=== PATIENT | male | born 1940 | race Caucasian/White ===

== ENCOUNTER → 2016-05-19 | Outpatient (REF) | payer MEDICARE, MEDICAID ==
[~2016-05-19] MED LIST: /AMLO25TA OR; /INSUNPH SC; /MOM400 OR; /MOM400 PO; /PANT40TA PO; ARANESP IV; AZIT250T3 PO; BACT2CRE TOP; CALC1CAP31 PO; CALC25CA OR; CARV6.25 PO; CEFE1INJ IV; CINA30TA PO; ERYTOIN8 TOP; EUCECRE3 TOP; FEBU40TA PO; FLOM5CAP PO; FOLI1TAB2 PO; FOLI1TAB86 PO; FRUICHW PO; HYDR1TAB97 PO; INSUH10VL SC; INSULANT SC; KETO5OPD OS; LABE10TAB PO; LABE20TAB OR; LANTINJ4 SC; LASI20TA PO; LASI40TA PO; MOISTURIN CREAM EXT; MULTCAP PO; NO HISTORICAL MEDS; NORMODYNE OR; NOVOINJ3 SC; NYST100024 TOP; POTA10TA PO; PRAV10TA PO; PRED10TA PO; PRED1SUS OD; PROC20004 SC; PROT1TAB2 PO; REFRSOL OU; RENV2TAB PO; THIA100T PO; TOBRSUS41 OS; TYLE325T5 PO; VENO20IN IV; VITA100T2 PO; VITA1CAP25 PO; ZOFR20TA PO
[2016-05-19 10:13] LABS: BASO % 0.2 % (0.0-1.0); EOS # 0.2 K/mm3 (0.0-0.50); EOS % 5.4 % (0.0-3.0); LARGE UNSTAINED CELL # 0.1 K/mm3 (0.0-0.4); LARGE UNSTAINED CELL % 2.2 % (0.0-4.0); LYMPH # 0.9 K/mm3 (1.5-4.5); LYMPH % 24.6 % (24.0-44.0); MEAN CORPUSCULAR HEMOGLOBIN 31.1 pg (27.0-33.0); MEAN CORPUSCULAR HGB CONC 32.8 g/dl (32.0-36.5); MEAN CORPUSCULAR VOLUME 94.7 fl (80.0-96.0); MONO # 0.2 K/mm3 (0.0-0.8); MONO % 5.9 % (0.0-5.0); NEUTROPHILS # 2.1 K/mm3 (1.8-7.7); NEUTROPHILS % 61.6 % (36.0-66.0); PLATELET COUNT, AUTOMATED 110 k/mm3 (150-450); RED CELL DISTRIBUTION WIDTH 13.9 % (11.5-14.5); WHITE BLOOD COUNT 3.4 K/mm3 (4.0-10.0)
== END ==
PROVIDERS: ATTEND Internal Medicine Nephrology
DX: D64.9 Anemia, unspecified (principal)

== ENCOUNTER → 2016-06-16 | Outpatient (REF) | payer MEDICARE, MEDICAID ==
[~2016-06-16] MED LIST changes: +HYDR-3713 PO; -HYDR1TAB97 PO
[2016-06-16 12:53] LABS: BASO % 0.6 % (0.0-1.0); EOS # 0.1 K/mm3 (0.0-0.50); EOS % 3.8 % (0.0-3.0); LARGE UNSTAINED CELL # 0.1 K/mm3 (0.0-0.4); LYMPH # 0.7 K/mm3 (1.5-4.5); LYMPH % 23.3 % (24.0-44.0); MEAN CORPUSCULAR HEMOGLOBIN 30.1 pg (27.0-33.0); MEAN CORPUSCULAR HGB CONC 31.4 g/dl (32.0-36.5); MEAN CORPUSCULAR VOLUME 95.9 fl (80.0-96.0); MONO # 0.2 K/mm3 (0.0-0.8); NEUTROPHILS % 63.3 % (36.0-66.0); PLATELET COUNT, AUTOMATED 101 k/mm3 (150-450); RED CELL DISTRIBUTION WIDTH 13.9 % (11.5-14.5); WHITE BLOOD COUNT 3.2 K/mm3 (4.0-10.0)
== END ==
PROVIDERS: ATTEND Internal Medicine Nephrology
DX: D64.9 Anemia, unspecified (principal)

== ENCOUNTER → 2016-07-08 | Outpatient (REF) | payer MEDICARE, MEDICAID ==
[2016-07-08 09:59] LABS: BASO % 0.5 % (0.0-1.0); EOS # 0.1 K/mm3 (0.0-0.50); EOS % 3.5 % (0.0-3.0); LARGE UNSTAINED CELL # 0.1 K/mm3 (0.0-0.4); LARGE UNSTAINED CELL % 1.8 % (0.0-4.0); LYMPH # 1.1 K/mm3 (1.5-4.5); LYMPH % 27.1 % (24.0-44.0); MEAN CORPUSCULAR HEMOGLOBIN 30.6 pg (27.0-33.0); MEAN CORPUSCULAR HGB CONC 32.4 g/dl (32.0-36.5); MEAN CORPUSCULAR VOLUME 94.3 fl (80.0-96.0); MONO # 0.2 K/mm3 (0.0-0.8); MONO % 4.1 % (0.0-5.0); NEUTROPHILS # 2.5 K/mm3 (1.8-7.7); RED CELL DISTRIBUTION WIDTH 13.5 % (11.5-14.5); WHITE BLOOD COUNT 3.9 K/mm3 (4.0-10.0)
[2016-07-08 10:00] LABS: PLATELET COUNT, AUTOMATED 97 k/mm3 (150-450)
[2016-07-08 10:16] LABS: ALBUMIN 3.6 GM/DL (3.2-5.2); CALCIUM LEVEL 8.3 MG/DL (8.8-10.2); CREATININE FOR GFR 3.8 MG/DL (0.70-1.30); GLOMERULAR FILTRATION RATE 16.7 (>42); PHOSPHORUS LEVEL 4.1 MG/DL (2.5-4.9); POTASSIUM SERUM 4.5 MEQ/L (3.5-5.1)
== END ==
PROVIDERS: ATTEND Internal Medicine Nephrology
DX: N18.4 Chronic kidney disease, stage 4 (severe) (principal); D63.1 Anemia in chronic kidney disease; N25.81 Secondary hyperparathyroidism of renal origin

== ENCOUNTER 2016-07-23 09:46 | Emergency (ER) | payer MEDICARE, MEDICAID ==
[~2016-07-23] VITALS: Ht 170.2 cm; Wt 88.9 kg
[2016-07-23] MEDS ORDERED: PANTOPRAZOLE 40MG INJ (PROTONIX) (C9113) IV ONE (10:30)
[2016-07-23] MEDS ORDERED: SODIUM CHLORIDE 0.9% 1000 ML IV ONE (10:30)
[2016-07-23 10:44] LABS: ALBUMIN 3.8 GM/DL (3.2-5.2); ALBUMIN/GLOBULIN RATIO 1.06 (1.00-1.93); BILIRUBIN,DIRECT 0.2 MG/DL (0.0-0.2); BILIRUBIN,TOTAL 0.8 MG/DL (0.2-1.0); CALCIUM LEVEL 8.5 MG/DL (8.8-10.2); CREATININE FOR GFR 3.38 MG/DL (0.70-1.30); GLOMERULAR FILTRATION RATE 19.1 (>42); MEAN CORPUSCULAR HEMOGLOBIN 30.7 pg (27.0-33.0); MEAN CORPUSCULAR HGB CONC 32.2 g/dl (32.0-36.5); MEAN CORPUSCULAR VOLUME 95.2 fl (80.0-96.0); PLATELET COUNT, AUTOMATED 102 k/mm3 (150-450); POTASSIUM SERUM 4.5 MEQ/L (3.5-5.1); RED CELL DISTRIBUTION WIDTH 13.8 % (11.5-14.5); TOTAL PROTEIN 7.4 GM/DL (6.4-8.2); WHITE BLOOD COUNT 5.4 K/mm3 (4.0-10.0)
[2016-07-23 11:17] LABS: BANDS 3 % (< 11); EOSINOPHILS 2 % (0-5)
[2016-07-23 11:18] LABS: ANISOCYTOSIS 1+
--- NOTE | 2016-07-23 13:40 | REP ---
ABDOMEN SERIES: Three views. HISTORY: Abdominal pain, nausea and vomiting. Comparison study December 23, 2014. FINDINGS: Upright chest radiograph demonstrates an elevated right hemidiaphragm with some discoid atelectasis in the right lower lobe above the diaphragm. These findings are unchanged from December 23, 2014 study. The left lung is clear and well inflated. No free subdiaphragmatic air is seen. Supine and erect views of the abdomen demonstrate air fluid levels in air and fluid filled loops of small intestine in the central abdomen. These are mildly dilated. There is some air in the descending colon and stool is visible in the rectum. No colonic distension is appreciated. There is some vascular calcification. No surgical clips are seen. Psoas margins and flank stripes are intact. IMPRESSION: Air-fluid levels in dilated small bowel loops centrally. Question small bowel obstruction. Elevated right hemidiaphragm with discoid atelectasis and/or fibrosis in the right base. No free air. Signed by Vinod Miller MD 07/23/2016 05:37 P
--- NOTE | 2016-07-23 14:01 | REP ---
CT ABDOMEN AND PELVIS WITHOUT IV CONTRAST: 07/23/2016 CLINICAL HISTORY: Abdominal pain, vomiting. Evaluate for small bowel obstruction. TECHNIQUE: Noncontrast images with axial soft tissue windows along with coronal and sagittal reconstructions reviewed. Bone windows also reviewed for each slice level. FINDINGS: CT ABDOMEN: Lung bases show some bibasilar atelectatic change deep sulci, right slightly greater than left. No definite effusion, nodule or mass. There is elevation of the right diaphragm with more atelectatic changes adjacent to it than on the left. The liver is not enlarged. The spleen is not enlarged. There is no hepatic mass or biliary dilatation and I see no adjacent ascites. The gallbladder, however, has two groups of layering small stones or gravel, one in the dependent portion of the fundus, the other in the dependent portion of the lower gallbladder towards the neck. Pancreas shows some fatty atrophy but no mass ductal dilatation or calcification. There are some heavily calcified and tortuous/ectatic splenic artery. The adrenal glands show no mass. The kidneys are atrophic with there is no hydronephrosis. Atherosclerotic calcifications of the aorta without aneurysm. No hiatal hernia. Stomach adequately distended. Small bowel loops are not abnormally dilated. There are few filled with air and others with a few air-fluid levels that may reflect a very mild ileus or gastroenteritis but no obstruction. The lung window review of all CT slices shows no sign of perforation or abscess. No free air. Bone windows show lumbar spine with a few millimeters of anterolisthesis of L3 on four and vacuum phenomenon at that disc level. Mild disc bulge at that level with some mild central canal stenosis. No compression deformities are noted. The thoracic vertebral levels are intact. The visualized ribs are intact. CT PELVIS: Bladder is well distended. There is no bladder wall thickening, mass or stone. No renal stone, hydroureter or ureteral stone on either side. The SI joints show some minor sclerosis iliac margins but no destructive lesions of the sacrum, pelvic bones, hips or symphysis pubis. There are mild degenerative changes of both hips. The colon shows no evidence of appendicitis, colitis or diverticulitis in the abdomen proper. In the pelvis, there is diverticulosis of the distal left colon and sigmoid without diverticulitis. Prostate not enlarged, no inflammatory changes in the deep pelvis fat. No ventral or inguinal hernia nor pathologic inguinal adenopathy. IMPRESSION: 1. Some gas and air-fluid levels in small bowel loops in a pattern suggesting some gastroenteritis or mild ileus. No sign of obstruction, mass or free air. 2. Mild renal atrophy. 3. There are multiple small gallstones with mild calcifications seen in the dependent fundus and towards the neck of the gallbladder. No definite stone in the suzanna hepatis or pancreatic head region. 4. Solid organs otherwise unremarkable. Signed by Wiliam Sahu MD 07/23/2016 04:18 P
[2016-07-23] MEDS ORDERED: ZOFR4TAB3 PO (15:25)
[2016-07-23 16:11] VITALS: BP 135/72
== END 2016-07-23 16:23 | disposition home or self-care (01) ==
LOC: EDBD 09:46 → M ED 11:02
DX: K80.20 Calculus of gallbladder without cholecystitis without obstruction (principal); R11.2 Nausea with vomiting, unspecified; R19.7 Diarrhea, unspecified; N19 Unspecified kidney failure; E11.9 Type 2 diabetes mellitus without complications; I10 Essential (primary) hypertension; Z88.0 Allergy status to penicillin; Z88.1 Allergy status to other antibiotic agents; Z88.8 Allergy status to other drugs, medicaments and biological substances; Z79.4 Long term (current) use of insulin; Z79.899 Other long term (current) drug therapy
CPT/HCPCS: 36415; 74022; 74176; 80048; 80076; 83690; 85025; 96374; 99284; C9113

== ENCOUNTER → 2016-08-11 | Outpatient (REF) | payer MEDICARE, MEDICAID ==
[~2016-08-11] MED LIST changes: +ZOFR4TAB3 PO
[2016-08-11 10:22] LABS: BASO % 0.6 % (0.0-1.0); EOS # 0.2 K/mm3 (0.0-0.50); EOS % 3.6 % (0.0-3.0); LARGE UNSTAINED CELL # 0.1 K/mm3 (0.0-0.4); LYMPH % 21.4 % (24.0-44.0); MEAN CORPUSCULAR HEMOGLOBIN 30.7 pg (27.0-33.0); MEAN CORPUSCULAR HGB CONC 32.1 g/dl (32.0-36.5); MEAN CORPUSCULAR VOLUME 95.5 fl (80.0-96.0); MONO # 0.2 K/mm3 (0.0-0.8); MONO % 5.3 % (0.0-5.0); NEUTROPHILS # 2.8 K/mm3 (1.8-7.7); NEUTROPHILS % 67.1 % (36.0-66.0); PLATELET COUNT, AUTOMATED 141 k/mm3 (150-450); RED CELL DISTRIBUTION WIDTH 14.2 % (11.5-14.5); WHITE BLOOD COUNT 4.1 K/mm3 (4.0-10.0)
== END ==
PROVIDERS: ATTEND Internal Medicine Nephrology
DX: N18.9 Chronic kidney disease, unspecified (principal); D63.1 Anemia in chronic kidney disease

== ENCOUNTER → 2016-09-23 | Outpatient (REF) | payer MEDICARE, MEDICAID ==
[2016-09-23 11:01] LABS: BASO % 0.7 % (0.0-1.0); EOS # 0.2 K/mm3 (0.0-0.50); LARGE UNSTAINED CELL % 0.8 % (0.0-4.0); MEAN CORPUSCULAR HEMOGLOBIN 31.3 pg (27.0-33.0); MEAN CORPUSCULAR HGB CONC 32.2 g/dl (32.0-36.5); MEAN CORPUSCULAR VOLUME 97.4 fl (80.0-96.0); MONO # 0.3 K/mm3 (0.0-0.8); MONO % 5.7 % (0.0-5.0); NEUTROPHILS # 2.9 K/mm3 (1.8-7.7); NEUTROPHILS % 65.8 % (36.0-66.0); PLATELET COUNT, AUTOMATED 120 k/mm3 (150-450); RED CELL DISTRIBUTION WIDTH 13.4 % (11.5-14.5); WHITE BLOOD COUNT 4.4 K/mm3 (4.0-10.0)
[2016-09-23 11:30] LABS: ALBUMIN 3.6 GM/DL (3.2-5.2); CALCIUM LEVEL 8.7 MG/DL (8.8-10.2); CREATININE FOR GFR 3.66 MG/DL (0.70-1.30); GLOMERULAR FILTRATION RATE 17.4 (>42); POTASSIUM SERUM 3.9 MEQ/L (3.5-5.1)
== END ==
PROVIDERS: ATTEND Internal Medicine Nephrology
DX: N18.4 Chronic kidney disease, stage 4 (severe) (principal); D63.1 Anemia in chronic kidney disease; N25.81 Secondary hyperparathyroidism of renal origin

== ENCOUNTER → 2016-12-22 | Outpatient (REF) | payer MEDICARE, MEDICAID ==
[~2016-12-22] MED LIST changes: +AZIT-12 PO; -AZIT250T3 PO; -FOLI1TAB2 PO; +FOLI1TAB4 PO; -NYST100024 TOP; +NYST1POW9 TOP; -PRAV10TA PO; +PRAV10TA4 PO; -THIA100T PO; +THIA100T6 PO
[2016-12-22 12:40] LABS: BASO % 0.5 % (0.0-1.0); EOS # 0.1 K/mm3 (0.0-0.50); EOS % 3.8 % (0.0-3.0); LARGE UNSTAINED CELL # 0.1 K/mm3 (0.0-0.4); LARGE UNSTAINED CELL % 1.7 % (0.0-4.0); LYMPH # 0.8 K/mm3 (1.5-4.5); LYMPH % 21.5 % (24.0-44.0); MEAN CORPUSCULAR HEMOGLOBIN 32.2 pg (27.0-33.0); MEAN CORPUSCULAR HGB CONC 32.8 g/dl (32.0-36.5); MEAN CORPUSCULAR VOLUME 98.1 fl (80.0-96.0); MONO # 0.2 K/mm3 (0.0-0.8); MONO % 5.5 % (0.0-5.0); NEUTROPHILS # 2.5 K/mm3 (1.8-7.7); NEUTROPHILS % 66.9 % (36.0-66.0); PLATELET COUNT, AUTOMATED 100 k/mm3 (150-450); RED CELL DISTRIBUTION WIDTH 13.4 % (11.5-14.5); WHITE BLOOD COUNT 3.7 K/mm3 (4.0-10.0)
[2016-12-22 13:55] LABS: ALBUMIN 3.6 GM/DL (3.2-5.2); CALCIUM LEVEL 8.1 MG/DL (8.8-10.2); CREATININE FOR GFR 3.74 MG/DL (0.70-1.30); PHOSPHORUS LEVEL 3.7 MG/DL (2.5-4.9); POTASSIUM SERUM 3.6 MEQ/L (3.5-5.1)
== END ==
PROVIDERS: ATTEND Internal Medicine Nephrology
DX: N18.4 Chronic kidney disease, stage 4 (severe) (principal); D63.1 Anemia in chronic kidney disease; N25.81 Secondary hyperparathyroidism of renal origin; E11.22 Type 2 diabetes mellitus with diabetic chronic kidney disease

== ENCOUNTER 2017-01-19 13:17 | Emergency (ER) | payer MEDICARE, MEDICAID ==
[~2017-01-19] VITALS: Ht 170.2 cm; Wt 86.4 kg
[2017-01-19 13:27] VITALS: BP 139/65
== END 2017-01-19 15:04 | disposition home or self-care (01) ==
LOC: M ED 13:17 → EDBD 13:17 → M ED 15:04
DX: H35.63 Retinal hemorrhage, bilateral (principal); E11.9 Type 2 diabetes mellitus without complications; I10 Essential (primary) hypertension; F17.200 Nicotine dependence, unspecified, uncomplicated; Z79.4 Long term (current) use of insulin; Z79.899 Other long term (current) drug therapy; Z88.0 Allergy status to penicillin; Z88.8 Allergy status to other drugs, medicaments and biological substances; Z88.1 Allergy status to other antibiotic agents

== ENCOUNTER → 2017-03-16 | Outpatient (REF) | payer MEDICARE, MEDICAID ==
[2017-03-16 10:17] LABS: BASO % 0.5 % (0.0-1.0); EOS # 0.2 10^3/uL (0.0-0.50); EOS % 3.8 % (0.0-3.0); IMMATURE GRANULOCYTE % 0.7 % (0-0); LYMPH # 0.9 10^3/uL (1.5-4.5); LYMPH % 21.9 % (24.0-44.0); MEAN CORPUSCULAR HEMOGLOBIN 31.2 pg (27.0-33.0); MEAN CORPUSCULAR HGB CONC 32.2 g/dl (32.0-36.5); MEAN CORPUSCULAR VOLUME 96.9 fl (80.0-96.0); MONO # 0.3 10^3/uL (0.0-0.8); MONO % 6.7 % (0.0-5.0); NEUTROPHILS # 2.8 10^3/uL (1.8-7.7); NEUTROPHILS % 66.4 % (36.0-66.0); PLATELET COUNT, AUTOMATED 108 10^3/uL (150-450); RED CELL DISTRIBUTION WIDTH 13.2 % (11.5-14.5); WHITE BLOOD COUNT 4.2 10^3/uL (4.0-10.0)
[2017-03-16 10:36] LABS: ALBUMIN 3.6 GM/DL (3.2-5.2); CREATININE FOR GFR 3.92 MG/DL (0.70-1.30); PHOSPHORUS LEVEL 3.9 MG/DL (2.5-4.9); POTASSIUM SERUM 4.1 MEQ/L (3.5-5.1)
== END ==
PROVIDERS: ATTEND Internal Medicine Nephrology
DX: N18.4 Chronic kidney disease, stage 4 (severe) (principal); D63.1 Anemia in chronic kidney disease; E11.22 Type 2 diabetes mellitus with diabetic chronic kidney disease; N25.81 Secondary hyperparathyroidism of renal origin

== ENCOUNTER → 2017-04-21 | Outpatient (REF) | payer MEDICARE, MEDICAID | LOC: M LAB REF 16:54 | PROVIDERS: ATTEND Podiatrist | DX: L03.116 Cellulitis of left lower limb (principal) ==

== ENCOUNTER → 2017-04-28 | Outpatient (REF) | payer MEDICARE, MEDICAID | LOC: M LAB REF 18:14 | PROVIDERS: ATTEND Nurse Practitioner Adult Health | DX: L30.9 Dermatitis, unspecified (principal); M14.679 Charcot's joint, unspecified ankle and foot ==

== ENCOUNTER → 2017-06-08 | Outpatient (REF) | payer MEDICARE, MEDICAID ==
[2017-06-08 11:38] LABS: HEMATOCRIT 33.3 % (42.0-52.0); HEMOGLOBIN 10.7 g/dl (14.0-18.0); MEAN CORPUSCULAR HEMOGLOBIN 30.7 pg (27.0-33.0); MEAN CORPUSCULAR HGB CONC 32.1 g/dl (32.0-36.5); MEAN CORPUSCULAR VOLUME 95.4 fl (80.0-96.0); PLATELET COUNT, AUTOMATED 120 10^3/uL (150-450); RED BLOOD COUNT 3.49 10^6/uL (4.30-6.10); RED CELL DISTRIBUTION WIDTH 12.9 % (11.5-14.5); WHITE BLOOD COUNT 3.7 10^3/uL (4.0-10.0)
[2017-06-08 11:54] LABS: ESTIMATED AVERAGE GLUCOSE 126 MG/DL (60-110)
[2017-06-08 12:01] LABS: ERYTHROCYTE SEDIMENTATION RATE 35 mm/hr (0-20)
[2017-06-08 12:22] LABS: ANION GAP 11 MEQ/L (8-16); BLOOD UREA NITROGEN 72 MG/DL (7-18); C REACTIVE PROTEIN QUANTITATIV 0.84 MG/DL (0.00-0.30); CALCIUM LEVEL 8.8 MG/DL (8.8-10.2); CARBON DIOXIDE LEVEL 26 MEQ/L (21-32); CHLORIDE LEVEL 102 MEQ/L (98-107); CREATININE FOR GFR 3.81 MG/DL (0.70-1.30); GLOMERULAR FILTRATION RATE 16.6 (>42); GLUCOSE, FASTING 105 MG/DL (70-100); POTASSIUM SERUM 3.9 MEQ/L (3.5-5.1); SODIUM LEVEL 139 MEQ/L (136-145)
== END ==
DX: Z00.00 Encounter for general adult medical examination without abnormal findings (principal); R73.01 Impaired fasting glucose
CPT/HCPCS: 83036

== ENCOUNTER → 2017-06-22 | Outpatient (REF) | payer MEDICARE, MEDICAID ==
[2017-06-22 10:13] LABS: BASO % 0.7 % (0.0-1.0); EOS # 0.1 10^3/uL (0.0-0.50); EOS % 2.8 % (0.0-3.0); HEMATOCRIT 34.8 % (42.0-52.0); HEMOGLOBIN 11.3 g/dl (14.0-18.0); IMMATURE GRANULOCYTE % 0.5 % (0-3.0); LYMPH % 22.9 % (24.0-44.0); MEAN CORPUSCULAR HEMOGLOBIN 30.8 pg (27.0-33.0); MEAN CORPUSCULAR HGB CONC 32.5 g/dl (32.0-36.5); MEAN CORPUSCULAR VOLUME 94.8 fl (80.0-96.0); MONO # 0.3 10^3/uL (0.0-0.8); MONO % 7.9 % (0.0-5.0); NEUTROPHILS # 2.8 10^3/uL (1.8-7.7); NEUTROPHILS % 65.2 % (36.0-66.0); PLATELET COUNT, AUTOMATED 122 10^3/uL (150-450); RED BLOOD COUNT 3.67 10^6/uL (4.30-6.10); WHITE BLOOD COUNT 4.3 10^3/uL (4.0-10.0)
[2017-06-22 10:35] LABS: ALBUMIN 3.8 GM/DL (3.2-5.2); ANION GAP 8 MEQ/L (8-16); BLOOD UREA NITROGEN 88 MG/DL (7-18); CALCIUM LEVEL 9.2 MG/DL (8.8-10.2); CARBON DIOXIDE LEVEL 29 MEQ/L (21-32); CHLORIDE LEVEL 104 MEQ/L (98-107); GLOMERULAR FILTRATION RATE 16.6 (>42); GLUCOSE, FASTING 81 MG/DL (70-100); PHOSPHORUS LEVEL 4.2 MG/DL (2.5-4.9); SODIUM LEVEL 141 MEQ/L (136-145)
[2017-06-22 10:43] LABS: PTH INTACT 59.7 PG/ML (18.5-88.0)
== END ==
DX: N18.5 Chronic kidney disease, stage 5 (principal); D63.1 Anemia in chronic kidney disease; N25.81 Secondary hyperparathyroidism of renal origin
CPT/HCPCS: 80069

== ENCOUNTER → 2017-07-23 | Outpatient (CLI) | payer MEDICARE, MEDICAID | LOC: M RAD 11:15 | DX: M86.172 Other acute osteomyelitis, left ankle and foot (principal); I70.213 Atherosclerosis of native arteries of extremities with intermittent claudication, bilateral legs; S91.302A Unspecified open wound, left foot, initial encounter; X58.XXXA Exposure to other specified factors, initial encounter; Y92.89 Other specified places as the place of occurrence of the external cause | CPT/HCPCS: 93923 ==

== ENCOUNTER → 2017-08-31 | Outpatient (REF) | payer MEDICARE, MEDICAID ==
[2017-08-31 10:42] LABS: BASO % 0.9 % (0.0-1.0); EOS # 0.2 10^3/uL (0.0-0.50); EOS % 5.6 % (0.0-3.0); HEMATOCRIT 33.8 % (42.0-52.0); HEMOGLOBIN 10.9 g/dl (13.5-17.5); IMMATURE GRANULOCYTE % 0.6 % (0-3.0); MEAN CORPUSCULAR HEMOGLOBIN 29.9 pg (27.0-33.0); MEAN CORPUSCULAR HGB CONC 32.2 g/dl (32.0-36.5); MEAN CORPUSCULAR VOLUME 92.9 fl (80.0-96.0); MONO # 0.4 10^3/uL (0.0-0.8); NEUTROPHILS # 1.8 10^3/uL (1.8-7.7); NEUTROPHILS % 51.9 % (36.0-66.0); PLATELET COUNT, AUTOMATED 110 10^3/uL (150-450); RED BLOOD COUNT 3.64 10^6/uL (4.30-6.10); RED CELL DISTRIBUTION WIDTH 13.3 % (11.5-14.5); WHITE BLOOD COUNT 3.4 10^3/uL (4.0-10.0)
[2017-08-31 11:20] LABS: ANION GAP 9 MEQ/L (8-16); BLOOD UREA NITROGEN 65 MG/DL (7-18); CALCIUM LEVEL 10.1 MG/DL (8.8-10.2); CARBON DIOXIDE LEVEL 26 MEQ/L (21-32); CHLORIDE LEVEL 106 MEQ/L (98-107); CREATININE FOR GFR 3.78 MG/DL (0.70-1.30); GLOMERULAR FILTRATION RATE 16.7 (>42); GLUCOSE, FASTING 122 MG/DL (70-100); POTASSIUM SERUM 3.8 MEQ/L (3.5-5.1); SODIUM LEVEL 141 MEQ/L (136-145)
== END ==
DX: M79.662 Pain in left lower leg (principal)
CPT/HCPCS: 80048

== ENCOUNTER → 2017-09-21 | Outpatient (REF) | payer MEDICARE, MEDICAID ==
[2017-09-21 09:35] LABS: BASO % 0.7 % (0.0-1.0); EOS # 0.2 10^3/uL (0.0-0.50); EOS % 4.7 % (0.0-3.0); HEMATOCRIT 34.5 % (42.0-52.0); HEMOGLOBIN 11.2 g/dl (13.5-17.5); IMMATURE GRANULOCYTE % 1.2 % (0-3.0); LYMPH # 1.3 10^3/uL (1.5-4.5); LYMPH % 30.7 % (24.0-44.0); MEAN CORPUSCULAR HEMOGLOBIN 30.7 pg (27.0-33.0); MEAN CORPUSCULAR HGB CONC 32.5 g/dl (32.0-36.5); MEAN CORPUSCULAR VOLUME 94.5 fl (80.0-96.0); MONO # 0.4 10^3/uL (0.0-0.8); MONO % 9.8 % (0.0-5.0); NEUTROPHILS # 2.2 10^3/uL (1.8-7.7); NEUTROPHILS % 52.9 % (36.0-66.0); PLATELET COUNT, AUTOMATED 124 10^3/uL (150-450); RED BLOOD COUNT 3.65 10^6/uL (4.30-6.10); RED CELL DISTRIBUTION WIDTH 13.4 % (11.5-14.5); WHITE BLOOD COUNT 4.1 10^3/uL (4.0-10.0)
[2017-09-21 10:15] LABS: ALBUMIN 3.6 GM/DL (3.2-5.2); ANION GAP 10 MEQ/L (8-16); BLOOD UREA NITROGEN 78 MG/DL (7-18); CALCIUM LEVEL 9.6 MG/DL (8.8-10.2); CARBON DIOXIDE LEVEL 25 MEQ/L (21-32); CHLORIDE LEVEL 109 MEQ/L (98-107); CREATININE FOR GFR 3.88 MG/DL (0.70-1.30); GLOMERULAR FILTRATION RATE 16.2 (>42); GLUCOSE, FASTING 73 MG/DL (70-100); PHOSPHORUS LEVEL 3.8 MG/DL (2.5-4.9); POTASSIUM SERUM 3.8 MEQ/L (3.5-5.1); SODIUM LEVEL 144 MEQ/L (136-145)
[2017-09-21 11:06] LABS: ESTIMATED AVERAGE GLUCOSE 120 MG/DL (60-110); HEMOGLOBIN A1c 5.8 %
== END ==
DX: N18.4 Chronic kidney disease, stage 4 (severe) (principal); D63.1 Anemia in chronic kidney disease; E11.22 Type 2 diabetes mellitus with diabetic chronic kidney disease; N25.81 Secondary hyperparathyroidism of renal origin
CPT/HCPCS: 80069

== ENCOUNTER → 2017-09-28 | Outpatient (CLI) | payer MEDICARE, MEDICAID ==
[~2017-09-28] MED LIST changes: -/AMLO25TA OR; -/INSUNPH SC; -/MOM400 OR; -/MOM400 PO; -/PANT40TA PO; -ARANESP IV; -AZIT-12 PO; -BACT2CRE TOP; -CALC1CAP31 PO; -CALC25CA OR; -CARV6.25 PO; -CEFE1INJ IV; -CINA30TA PO; -ERYTOIN8 TOP; -EUCECRE3 TOP; -FEBU40TA PO; -FLOM5CAP PO; -FOLI1TAB4 PO; -FOLI1TAB86 PO; -FRUICHW PO; +HEPARIN 1,000 UNITS/ML 10ML VIAL (FOR RADIOLOGY& DIALYSIS ONLY) As Ordered; -HYDR-3713 PO; -INSUH10VL SC; -INSULANT SC; +ISOVUE-300 61% 50ML VIAL (Q9967) As Ordered; -KETO5OPD OS; -LABE10TAB PO; -LABE20TAB OR; -LANTINJ4 SC; -LASI20TA PO; -LASI40TA PO; +MIDAZOLAM INJ 2 MG/2 ML VIAL (J2250) As Ordered; -MOISTURIN CREAM EXT; -MULTCAP PO; -NO HISTORICAL MEDS; -NORMODYNE OR; -NOVOINJ3 SC; -NYST1POW9 TOP; -POTA10TA PO; -PRAV10TA4 PO; -PRED10TA PO; -PRED1SUS OD; -PROC20004 SC; -PROT1TAB2 PO; -REFRSOL OU; -RENV2TAB PO; -THIA100T6 PO; -TOBRSUS41 OS; -TYLE325T5 PO; -VENO20IN IV; -VITA100T2 PO; -VITA1CAP25 PO; -ZOFR20TA PO; -ZOFR4TAB3 PO; +fentaNYL 100 MCG/2 ML INJECTION (J3010) As Ordered
== END | disposition home or self-care (01) ==
LOC: M IRPRO 07:36
DX: I70.245 Atherosclerosis of native arteries of left leg with ulceration of other part of foot (principal); L97.529 Non-pressure chronic ulcer of other part of left foot with unspecified severity; M14.672 Charcot's joint, left ankle and foot; E11.22 Type 2 diabetes mellitus with diabetic chronic kidney disease; N18.9 Chronic kidney disease, unspecified
CPT/HCPCS: 36247

== ENCOUNTER 2017-10-01 17:13 | Emergency (ER) | payer MEDICARE, MEDICAID ==
[2017-10-01 18:34] LABS: BASO % 0.4 % (0.0-1.0); EOS # 0.1 10^3/uL (0.0-0.50); EOS % 2.4 % (0.0-3.0); HEMATOCRIT 31.3 % (42.0-52.0); HEMOGLOBIN 10.2 g/dl (13.5-17.5); IMMATURE GRANULOCYTE % 0.6 % (0-3.0); LYMPH # 0.8 10^3/uL (1.5-4.5); LYMPH % 16.5 % (24.0-44.0); MEAN CORPUSCULAR HGB CONC 32.6 g/dl (32.0-36.5); MEAN CORPUSCULAR VOLUME 95.1 fl (80.0-96.0); MONO # 0.5 10^3/uL (0.0-0.8); MONO % 9.5 % (0.0-5.0); NEUTROPHILS # 3.6 10^3/uL (1.8-7.7); NEUTROPHILS % 70.6 % (36.0-66.0); RED BLOOD COUNT 3.29 10^6/uL (4.30-6.10); RED CELL DISTRIBUTION WIDTH 13.6 % (11.5-14.5)
[2017-10-01 18:59] LABS: ANION GAP 9 MEQ/L (8-16); BLOOD UREA NITROGEN 69 MG/DL (7-18); C REACTIVE PROTEIN QUANTITATIV 7.93 MG/DL (0.00-0.30); CALCIUM LEVEL 8.9 MG/DL (8.8-10.2); CARBON DIOXIDE LEVEL 25 MEQ/L (21-32); CHLORIDE LEVEL 107 MEQ/L (98-107); CREATININE FOR GFR 3.58 MG/DL (0.70-1.30); GLOMERULAR FILTRATION RATE 17.8 (>42); GLUCOSE, FASTING 133 MG/DL (70-100); SODIUM LEVEL 141 MEQ/L (136-145)
[2017-10-01 19:16] LABS: PLATELET COUNT, AUTOMATED 84 10^3/uL (150-450)
[2017-10-01 19:17] LABS: IMMATURE PLATELET FRACTION % 2.3 % (0.0-10.9)
[2017-10-01 19:20] LABS: ERYTHROCYTE SEDIMENTATION RATE 47 mm/hr (0-20)
[2017-10-01] MEDS: CEPHALEXIN 500 MG CAP PO (19:30)
== END 2017-10-01 20:21 | disposition home or self-care (01) ==
LOC: M ED 17:13
DX: L03.116 Cellulitis of left lower limb (principal); E11.9 Type 2 diabetes mellitus without complications
CPT/HCPCS: 73610

== ENCOUNTER → 2017-11-02 | Outpatient (REF) | payer MEDICARE, MEDICAID ==
[2017-11-02 11:57] LABS: BASO % 0.3 % (0.0-1.0); EOS # 0.2 10^3/uL (0.0-0.50); EOS % 4.6 % (0.0-3.0); HEMATOCRIT 32.5 % (42.0-52.0); HEMOGLOBIN 10.9 g/dl (13.5-17.5); IMMATURE GRANULOCYTE % 0.5 % (0-3.0); LYMPH % 26.4 % (24.0-44.0); MEAN CORPUSCULAR HEMOGLOBIN 31.6 pg (27.0-33.0); MEAN CORPUSCULAR HGB CONC 33.5 g/dl (32.0-36.5); MEAN CORPUSCULAR VOLUME 94.2 fl (80.0-96.0); MONO # 0.3 10^3/uL (0.0-0.8); MONO % 8.9 % (0.0-5.0); NEUTROPHILS # 2.2 10^3/uL (1.8-7.7); NEUTROPHILS % 59.3 % (36.0-66.0); RED BLOOD COUNT 3.45 10^6/uL (4.30-6.10); RED CELL DISTRIBUTION WIDTH 13.6 % (11.5-14.5); WHITE BLOOD COUNT 3.7 10^3/uL (4.0-10.0)
[2017-11-02 12:08] LABS: IMMATURE PLATELET FRACTION % 2.4 % (0.0-10.9); PLATELET COUNT, AUTOMATED 97 10^3/uL (150-450)
[2017-11-02 12:38] LABS: ALBUMIN 3.8 GM/DL (3.2-5.2); ANION GAP 11 MEQ/L (8-16); BLOOD UREA NITROGEN 84 MG/DL (7-18); CARBON DIOXIDE LEVEL 24 MEQ/L (21-32); CHLORIDE LEVEL 108 MEQ/L (98-107); CREATININE FOR GFR 4.15 MG/DL (0.70-1.30); GLUCOSE, FASTING 67 MG/DL (70-100); PHOSPHORUS LEVEL 4.4 MG/DL (2.5-4.9); POTASSIUM SERUM 4.2 MEQ/L (3.5-5.1); SODIUM LEVEL 143 MEQ/L (136-145)
[2017-11-02 13:10] LABS: PTH INTACT 44.9 PG/ML (18.5-88.0)
== END ==
DX: N18.4 Chronic kidney disease, stage 4 (severe) (principal); D63.1 Anemia in chronic kidney disease
CPT/HCPCS: 80069

== ENCOUNTER → 2017-11-16 | Outpatient (REF) | payer MEDICARE, MEDICAID ==
[2017-11-16 10:53] LABS: PTH INTACT 40.4 PG/ML (18.5-88.0)
== END ==
DX: N18.6 End stage renal disease (principal)
CPT/HCPCS: 83970

== ENCOUNTER → 2017-11-23 | Outpatient (REF) | payer MEDICARE, MEDICAID ==
[2017-11-23 09:28] LABS: HEMATOCRIT 32.2 % (42.0-52.0); HEMOGLOBIN 10.8 g/dl (13.5-17.5); MEAN CORPUSCULAR HEMOGLOBIN 31.7 pg (27.0-33.0); MEAN CORPUSCULAR HGB CONC 33.5 g/dl (32.0-36.5); MEAN CORPUSCULAR VOLUME 94.4 fl (80.0-96.0); PLATELET COUNT, AUTOMATED 105 10^3/uL (150-450); RED BLOOD COUNT 3.41 10^6/uL (4.30-6.10); RED CELL DISTRIBUTION WIDTH 13.4 % (11.5-14.5); WHITE BLOOD COUNT 4.1 10^3/uL (4.0-10.0)
[2017-11-23 09:40] LABS: PROTHROMBIN TIME 14.3 SECONDS (12.1-14.4)
[2017-11-23 09:41] LABS: PARTIAL THROMBOPLASTIN TIME 31.4 SECONDS (25.4-37.6)
[2017-11-23 09:57] LABS: ALBUMIN 3.5 GM/DL (3.2-5.2); ALBUMIN/GLOBULIN RATIO 0.88 (1.00-1.93); ALKALINE PHOSPHATASE 56 U/L (45-117); ALT/SGPT 34 U/L (12-78); ANION GAP 10 MEQ/L (8-16); AST/SGOT 24 U/L (7-37); BILIRUBIN,TOTAL 0.4 MG/DL (0.2-1.0); BLOOD UREA NITROGEN 96 MG/DL (7-18); CARBON DIOXIDE LEVEL 25 MEQ/L (21-32); CHLORIDE LEVEL 107 MEQ/L (98-107); GLOMERULAR FILTRATION RATE 14.4 (>42); GLUCOSE, FASTING 54 MG/DL (70-100); POTASSIUM SERUM 4.3 MEQ/L (3.5-5.1); SODIUM LEVEL 142 MEQ/L (136-145); TOTAL PROTEIN 7.5 GM/DL (6.4-8.2)
[2017-11-23 10:05] LABS: ESTIMATED AVERAGE GLUCOSE 131 MG/DL (60-110); HEMOGLOBIN A1c 6.2 %
== END ==
DX: E11.9 Type 2 diabetes mellitus without complications (principal); Z79.01 Long term (current) use of anticoagulants
CPT/HCPCS: 80053

== ENCOUNTER → 2017-12-03 | Outpatient (REF) | payer MEDICARE, MEDICAID ==
[2017-12-03 09:48] LABS: HEMATOCRIT 30.4 % (42.0-52.0); MEAN CORPUSCULAR HEMOGLOBIN 31.6 pg (27.0-33.0); MEAN CORPUSCULAR HGB CONC 32.9 g/dl (32.0-36.5); MEAN CORPUSCULAR VOLUME 96.2 fl (80.0-96.0); PLATELET COUNT, AUTOMATED 102 10^3/uL (150-450); RED BLOOD COUNT 3.16 10^6/uL (4.30-6.10); RED CELL DISTRIBUTION WIDTH 13.8 % (11.5-14.5); WHITE BLOOD COUNT 4.1 10^3/uL (4.0-10.0)
[2017-12-03 09:58] LABS: ESTIMATED AVERAGE GLUCOSE 123 MG/DL (60-110); HEMOGLOBIN A1c 5.9 %
[2017-12-03 10:05] LABS: INR 1.13; PROTHROMBIN TIME 14.6 SECONDS (12.1-14.4)
[2017-12-03 10:09] LABS: ALBUMIN 3.3 GM/DL (3.2-5.2); ALBUMIN/GLOBULIN RATIO 1.06 (1.00-1.93); ALKALINE PHOSPHATASE 52 U/L (45-117); ALT/SGPT 31 U/L (12-78); ANION GAP 7 MEQ/L (8-16); AST/SGOT 21 U/L (7-37); BILIRUBIN,TOTAL 0.3 MG/DL (0.2-1.0); BLOOD UREA NITROGEN 95 MG/DL (7-18); CALCIUM LEVEL 8.6 MG/DL (8.8-10.2); CARBON DIOXIDE LEVEL 29 MEQ/L (21-32); CHLORIDE LEVEL 109 MEQ/L (98-107); CREATININE FOR GFR 4.41 MG/DL (0.70-1.30); GLUCOSE, FASTING 58 MG/DL (70-100); POTASSIUM SERUM 4.9 MEQ/L (3.5-5.1); SODIUM LEVEL 145 MEQ/L (136-145); TOTAL PROTEIN 6.4 GM/DL (6.4-8.2)
== END ==
DX: Z01.818 Encounter for other preprocedural examination (principal); Z79.899 Other long term (current) drug therapy; E11.9 Type 2 diabetes mellitus without complications
CPT/HCPCS: 80053

== ENCOUNTER → 2017-12-10 | Outpatient (REF) | payer MEDICARE, MEDICAID ==
[2017-12-10 10:04] LABS: HEMOGLOBIN 10.5 g/dl (13.5-17.5); MEAN CORPUSCULAR HEMOGLOBIN 31.1 pg (27.0-33.0); MEAN CORPUSCULAR HGB CONC 32.8 g/dl (32.0-36.5); MEAN CORPUSCULAR VOLUME 94.7 fl (80.0-96.0); RED BLOOD COUNT 3.38 10^6/uL (4.30-6.10); RED CELL DISTRIBUTION WIDTH 13.4 % (11.5-14.5); WHITE BLOOD COUNT 4.1 10^3/uL (4.0-10.0)
[2017-12-10 10:06] LABS: IMMATURE PLATELET FRACTION % 2.7 % (0.0-10.9); PLATELET COUNT, AUTOMATED 91 10^3/uL (150-450)
== END ==
DX: N18.4 Chronic kidney disease, stage 4 (severe) (principal); D63.1 Anemia in chronic kidney disease; E11.9 Type 2 diabetes mellitus without complications
CPT/HCPCS: 85049

== ENCOUNTER 2017-12-30 08:31 | Inpatient (IN) | payer MEDICARE, MEDICAID ==
[~2017-12-30 08:31] MED LIST changes: +D5W/0.2% SODIUM CHLORIDE 1,000 ML IV; -HEPARIN 1,000 UNITS/ML 10ML VIAL (FOR RADIOLOGY& DIALYSIS ONLY) As Ordered; -ISOVUE-300 61% 50ML VIAL (Q9967) As Ordered; -MIDAZOLAM INJ 2 MG/2 ML VIAL (J2250) As Ordered; -fentaNYL 100 MCG/2 ML INJECTION (J3010) As Ordered
[2017-12-30] MEDS: NS 1,000 ML IV ×2 (09:40→19:00)
[2017-12-30 09:42] LABS: BEDSIDE GLUCOSE 87 MG/DL (83-110)
[2017-12-30 10:21] LABS: HEMATOCRIT 29.9 % (42.0-52.0); HEMOGLOBIN 9.9 g/dl (13.5-17.5); MEAN CORPUSCULAR HEMOGLOBIN 31.5 pg (27.0-33.0); MEAN CORPUSCULAR HGB CONC 33.1 g/dl (32.0-36.5); MEAN CORPUSCULAR VOLUME 95.2 fl (80.0-96.0); RED BLOOD COUNT 3.14 10^6/uL (4.30-6.10); RED CELL DISTRIBUTION WIDTH 13.2 % (11.5-14.5); WHITE BLOOD COUNT 4.3 10^3/uL (4.0-10.0)
[2017-12-30 10:26] LABS: PLATELET COUNT, AUTOMATED 80 10^3/uL (150-450)
[2017-12-30 10:27] LABS: IMMATURE PLATELET FRACTION % 2.4 % (0.0-10.9)
[2017-12-30 10:32] LABS: INR 1.11; PROTHROMBIN TIME 14.5 SECONDS (12.1-14.4)
[2017-12-30] MEDS ORDERED: CLINDAMYCIN 900 MG/50 ML PREMIX BAG As Ordered (11:03)
[2017-12-30] MEDS ORDERED: PROPOFOL 200 MG/20 ML VIAL As Ordered (11:38)
[2017-12-30] MEDS ORDERED: LIDOCAINE 2% INJ 100 MG/5 ML SDV (FOR ANES.) As Ordered (11:38)
[2017-12-30] MEDS ORDERED: ONDANSETRON 4MG/2ML VIAL (J2405) As Ordered (11:38)
[2017-12-30] MEDS ORDERED: fentaNYL 100 MCG/2 ML INJECTION (J3010) As Ordered ×3 (11:55→15:47)
[2017-12-30] MEDS ORDERED: ROCURONIUM BROMIDE 50 MG/5 ML VIAL As Ordered (11:55)
[2017-12-30] MEDS ORDERED: PHENYLephrine HCL 500 MCG/5 ML (100MCG/ML) SYRINGE (J2370) As Ordered ×2 (13:33→14:47)
[2017-12-30] MEDS: CLINDAMYCIN 900 MG in APPROPRIATE DILUENT 1 EA IV ×2 (13:40→20:43)
[2017-12-30] MEDS ORDERED: PHENYLEPHRINE INJ 10MG/ML VIAL (J2370) As Ordered ×2 (14:47→16:29)
[2017-12-30 18:40] LABS: BEDSIDE GLUCOSE 119 MG/DL (83-110)
[2017-12-30] MEDS ORDERED: PERCOCET 5MG/325MG TAB As Ordered (18:55)
[2017-12-30] MEDS: ONDANSETRON 4MG/2ML VIAL (J2405) IV (18:55)
[2017-12-30] MEDS: PERCOCET 5MG/325MG TAB PO (18:55)
[2017-12-30] MEDS ORDERED: METOCLOPRAMIDE INJ 10MG/2ML VIAL (J2765) IV (19:00)
[2017-12-30] MEDS ORDERED: fentaNYL 100 MCG/2 ML INJECTION (J3010) IV (19:00)
[2017-12-30] MEDS ORDERED: MORPHINE 4 MG/ML 1ML VIAL/SYRINGE (J2270) IV (19:00)
[2017-12-30] MEDS ORDERED: MEPERIDINE INJ 25 MG/ML VIAL (J2175) IV (19:00)
[2017-12-30] MEDS ORDERED: GLUCOSE 4 GM CHEW TABLET PO (20:30)
[2017-12-30] MEDS ORDERED: GLUCAGON FOR INJ 1 MG VIAL (J1610) SC (20:30)
[2017-12-30] MEDS ORDERED: DEXTROSE 50% 50 ML SYRINGE IV (20:30)
[2017-12-30 20:39] LABS: BEDSIDE GLUCOSE 131 MG/DL (83-110)
[2017-12-30] MEDS: LR 1,000 ML IV (20:42)
[2017-12-30] MEDS: HumaLOG INSULIN (NovoLOG) PER UNIT SC (21:00)
[2017-12-30] MEDS: CARVedilol 6.25 MG TAB PO (21:40)
[2017-12-30] MEDS: TAMSULOSIN 0.4 MG CAP PO (21:40)
[2017-12-30] MEDS: oxyCODONE 5MG TAB PO (21:41)
[2017-12-30] MEDS ORDERED: ONDANSETRON 4MG/2ML VIAL (J2405) IV (21:51)
[2017-12-30] MEDS: PRAVASTATIN 10 MG TAB PO (22:04)
[2017-12-31] MEDS ORDERED: ONDANSETRON 4MG/2ML VIAL (J2405) IV (01:00)
[2017-12-31] MEDS: CLINDAMYCIN 900 MG in APPROPRIATE DILUENT 1 EA IV ×2 (01:42→08:31)
[2017-12-31] MEDS: oxyCODONE 5MG TAB PO ×2 (01:43→08:32)
[2017-12-31 08:05] LABS: BEDSIDE GLUCOSE 126 MG/DL (83-110)
[2017-12-31 08:29] LABS: BASO % 0.4 % (0.0-1.0); EOS % 0.4 % (0.0-3.0); HEMATOCRIT 25.8 % (42.0-52.0); HEMOGLOBIN 8.2 g/dl (13.5-17.5); IMMATURE GRANULOCYTE % 0.6 % (0-3.0); LYMPH # 0.6 10^3/uL (1.5-4.5); LYMPH % 12.7 % (24.0-44.0); MEAN CORPUSCULAR HEMOGLOBIN 31.4 pg (27.0-33.0); MEAN CORPUSCULAR HGB CONC 31.8 g/dl (32.0-36.5); MEAN CORPUSCULAR VOLUME 98.9 fl (80.0-96.0); MONO # 0.4 10^3/uL (0.0-0.8); MONO % 9.1 % (0.0-5.0); NEUTROPHILS # 3.7 10^3/uL (1.8-7.7); NEUTROPHILS % 76.8 % (36.0-66.0); RED BLOOD COUNT 2.61 10^6/uL (4.30-6.10); RED CELL DISTRIBUTION WIDTH 13.5 % (11.5-14.5); WHITE BLOOD COUNT 4.8 10^3/uL (4.0-10.0)
[2017-12-31 08:30] LABS: ANION GAP 11 MEQ/L (8-16); BLOOD UREA NITROGEN 87 MG/DL (7-18); CARBON DIOXIDE LEVEL 19 MEQ/L (21-32); CHLORIDE LEVEL 113 MEQ/L (98-107); CREATININE FOR GFR 4.21 MG/DL (0.70-1.30); GLOMERULAR FILTRATION RATE 14.8 (>42); GLUCOSE, FASTING 105 MG/DL (70-100); MAGNESIUM LEVEL 2.4 MG/DL (1.8-2.4); SODIUM LEVEL 143 MEQ/L (136-145)
[2017-12-31] MEDS: HEPARIN SOD (PORCINE) 5000 UNITS/ML VIAL SQ ×3 (08:31→21:10)
[2017-12-31] MEDS: CALCITRIOL 0.25 MCG CAP (S0169) PO (08:32)
[2017-12-31] MEDS: HumaLOG INSULIN (NovoLOG) PER UNIT SC ×4 (08:32→21:00)
[2017-12-31 08:33] LABS: POTASSIUM SERUM 5.7 MEQ/L (3.5-5.1)
[2017-12-31] MEDS: CARVedilol 6.25 MG TAB PO ×2 (08:33→21:09)
[2017-12-31] MEDS: THIAMINE 100 MG TAB PO (08:33)
[2017-12-31] MEDS: FOLIC ACID 1 MG TAB PO (08:33)
[2017-12-31] MEDS: PANTOPRAZOLE 40MG TAB (PROTONIX) PO (08:33)
[2017-12-31] MEDS: (RENVELA) SEVELAMER **CARBONate** 800 MG TAB PO ×3 (08:33→17:27)
[2017-12-31 08:55] LABS: PLATELET COUNT, AUTOMATED 56 10^3/uL (150-450); POS COUNT POS FLAG
[2017-12-31] MEDS ORDERED: FUROSEMIDE 40 MG TAB PO (09:00)
[2017-12-31] MEDS: LR 1,000 ML IV ×2 (09:48→21:08)
[2017-12-31 12:54] LABS: HEMATOCRIT 26.3 % (42.0-52.0); HEMOGLOBIN 8.4 g/dl (13.5-17.5); MEAN CORPUSCULAR HEMOGLOBIN 31.5 pg (27.0-33.0); MEAN CORPUSCULAR HGB CONC 31.9 g/dl (32.0-36.5); MEAN CORPUSCULAR VOLUME 98.5 fl (80.0-96.0); RED BLOOD COUNT 2.67 10^6/uL (4.30-6.10); RED CELL DISTRIBUTION WIDTH 13.6 % (11.5-14.5); WHITE BLOOD COUNT 5.2 10^3/uL (4.0-10.0)
[2017-12-31 12:55] LABS: PLATELET COUNT, AUTOMATED 65 10^3/uL (150-450)
[2017-12-31 12:56] LABS: IMMATURE PLATELET FRACTION % 2.7 % (0.0-10.9)
[2017-12-31 13:46] LABS: BEDSIDE GLUCOSE 136 MG/DL (83-110)
[2017-12-31 13:54] LABS: ANION GAP 8 MEQ/L (8-16); BLOOD UREA NITROGEN 92 MG/DL (7-18); CALCIUM LEVEL 8.1 MG/DL (8.8-10.2); CARBON DIOXIDE LEVEL 24 MEQ/L (21-32); CHLORIDE LEVEL 111 MEQ/L (98-107); CREATININE FOR GFR 4.32 MG/DL (0.70-1.30); GLOMERULAR FILTRATION RATE 14.3 (>42); GLUCOSE, FASTING 109 MG/DL (70-100); SODIUM LEVEL 143 MEQ/L (136-145)
[2017-12-31 13:57] LABS: POTASSIUM SERUM 5.3 MEQ/L (3.5-5.1)
[2017-12-31 17:25] LABS: BEDSIDE GLUCOSE 152 MG/DL (83-110)
[2017-12-31 20:29] LABS: BEDSIDE GLUCOSE 115 MG/DL (83-110)
[2017-12-31] MEDS: LEVEMIR (INSULIN DETEMIR) 1 UNITS/0.01ML SC (21:00)
[2017-12-31] MEDS: TAMSULOSIN 0.4 MG CAP PO (21:08)
[2017-12-31] MEDS: PRAVASTATIN 10 MG TAB PO (21:09)
[2018-01-01] MEDS: LR 1,000 ML IV (04:21)
[2018-01-01] MEDS: HEPARIN SOD (PORCINE) 5000 UNITS/ML VIAL SQ ×3 (05:20→21:09)
[2018-01-01] MEDS: oxyCODONE 5MG TAB PO (05:21)
[2018-01-01 07:02] LABS: BASO % 0.2 % (0.0-1.0); EOS % 0.9 % (0.0-3.0); HEMATOCRIT 23.6 % (42.0-52.0); HEMOGLOBIN 7.7 g/dl (13.5-17.5); IMMATURE GRANULOCYTE % 0.9 % (0-3.0); LYMPH # 0.5 10^3/uL (1.5-4.5); LYMPH % 12.3 % (24.0-44.0); MEAN CORPUSCULAR HGB CONC 32.6 g/dl (32.0-36.5); MEAN CORPUSCULAR VOLUME 97.9 fl (80.0-96.0); MONO # 0.4 10^3/uL (0.0-0.8); MONO % 9.5 % (0.0-5.0); NEUTROPHILS # 3.3 10^3/uL (1.8-7.7); NEUTROPHILS % 76.2 % (36.0-66.0); RED BLOOD COUNT 2.41 10^6/uL (4.30-6.10); RED CELL DISTRIBUTION WIDTH 13.2 % (11.5-14.5); WHITE BLOOD COUNT 4.3 10^3/uL (4.0-10.0)
[2018-01-01 07:07] LABS: PLATELET COUNT, AUTOMATED 54 10^3/uL (150-450)
[2018-01-01 07:13] LABS: ANION GAP 9 MEQ/L (8-16); BLOOD UREA NITROGEN 76 MG/DL (7-18); CARBON DIOXIDE LEVEL 21 MEQ/L (21-32); CHLORIDE LEVEL 111 MEQ/L (98-107); CREATININE FOR GFR 3.94 MG/DL (0.70-1.30); GLOMERULAR FILTRATION RATE 15.9 (>42); GLUCOSE, FASTING 131 MG/DL (70-100); MAGNESIUM LEVEL 2.2 MG/DL (1.8-2.4); POTASSIUM SERUM 4.5 MEQ/L (3.5-5.1); SODIUM LEVEL 141 MEQ/L (136-145)
[2018-01-01] MEDS: CALCITRIOL 0.25 MCG CAP (S0169) PO (08:23)
[2018-01-01] MEDS: FOLIC ACID 1 MG TAB PO (08:23)
[2018-01-01] MEDS: (RENVELA) SEVELAMER **CARBONate** 800 MG TAB PO ×3 (08:24→17:30)
[2018-01-01] MEDS: THIAMINE 100 MG TAB PO (08:24)
[2018-01-01] MEDS: CARVedilol 6.25 MG TAB PO ×2 (08:24→21:09)
[2018-01-01] MEDS: HumaLOG INSULIN (NovoLOG) PER UNIT SC ×4 (08:24→20:26)
[2018-01-01] MEDS: PANTOPRAZOLE 40MG TAB (PROTONIX) PO (08:24)
[2018-01-01 10:29] LABS: IMMEDIATE SPIN CROSSMATCH 1 1
[2018-01-01] MEDS: FUROSEMIDE 100 MG/10 ML VIAL (J1940) IV (11:27)
[2018-01-01 12:53] LABS: BEDSIDE GLUCOSE 130 MG/DL (83-110)
[2018-01-01 16:28] LABS: BEDSIDE GLUCOSE 167 MG/DL (83-110)
[2018-01-01 20:16] LABS: BEDSIDE GLUCOSE 102 MG/DL (83-110)
[2018-01-01] MEDS: TAMSULOSIN 0.4 MG CAP PO (21:08)
[2018-01-01] MEDS: LEVEMIR (INSULIN DETEMIR) 1 UNITS/0.01ML SC (21:09)
[2018-01-01] MEDS: PRAVASTATIN 10 MG TAB PO (21:09)
[2018-01-02] MEDS: HEPARIN SOD (PORCINE) 5000 UNITS/ML VIAL SQ ×3 (05:12→22:34)
[2018-01-02 06:30] LABS: BASO % 0.2 % (0.0-1.0); EOS % 0.5 % (0.0-3.0); HEMATOCRIT 27.3 % (42.0-52.0); HEMOGLOBIN 9.1 g/dl (13.5-17.5); IMMATURE GRANULOCYTE % 1.6 % (0-3.0); LYMPH # 0.4 10^3/uL (1.5-4.5); LYMPH % 6.9 % (24.0-44.0); MEAN CORPUSCULAR HEMOGLOBIN 31.1 pg (27.0-33.0); MEAN CORPUSCULAR HGB CONC 33.3 g/dl (32.0-36.5); MEAN CORPUSCULAR VOLUME 93.2 fl (80.0-96.0); MONO # 0.5 10^3/uL (0.0-0.8); MONO % 8.3 % (0.0-5.0); NEUTROPHILS # 4.6 10^3/uL (1.8-7.7); NEUTROPHILS % 82.5 % (36.0-66.0); RED BLOOD COUNT 2.93 10^6/uL (4.30-6.10); RED CELL DISTRIBUTION WIDTH 14.5 % (11.5-14.5); WHITE BLOOD COUNT 5.5 10^3/uL (4.0-10.0)
[2018-01-02 06:45] LABS: PLATELET COUNT, AUTOMATED 68 10^3/uL (150-450)
[2018-01-02 06:46] LABS: IMMATURE PLATELET FRACTION % 2.4 % (0.0-10.9)
[2018-01-02 06:54] LABS: ANION GAP 12 MEQ/L (8-16); BLOOD UREA NITROGEN 77 MG/DL (7-18); CALCIUM LEVEL 8.4 MG/DL (8.8-10.2); CARBON DIOXIDE LEVEL 22 MEQ/L (21-32); CHLORIDE LEVEL 108 MEQ/L (98-107); GLOMERULAR FILTRATION RATE 15.7 (>42); GLUCOSE, FASTING 133 MG/DL (70-100); MAGNESIUM LEVEL 2.2 MG/DL (1.8-2.4); POTASSIUM SERUM 4.1 MEQ/L (3.5-5.1); SODIUM LEVEL 142 MEQ/L (136-145)
[2018-01-02] MEDS: FOLIC ACID 1 MG TAB PO (08:02)
[2018-01-02] MEDS: HumaLOG INSULIN (NovoLOG) PER UNIT SC ×4 (08:02→20:18)
[2018-01-02] MEDS: THIAMINE 100 MG TAB PO (08:02)
[2018-01-02] MEDS: CARVedilol 6.25 MG TAB PO ×2 (08:02→20:18)
[2018-01-02] MEDS: CALCITRIOL 0.25 MCG CAP (S0169) PO (08:02)
[2018-01-02] MEDS: PANTOPRAZOLE 40MG TAB (PROTONIX) PO (08:02)
[2018-01-02] MEDS: (RENVELA) SEVELAMER **CARBONate** 800 MG TAB PO ×3 (08:02→17:14)
[2018-01-02] MEDS: FUROSEMIDE 100 MG/10 ML VIAL (J1940) IV (10:34)
[2018-01-02 11:29] LABS: BEDSIDE GLUCOSE 174 MG/DL (83-110)
[2018-01-02 16:24] LABS: APPEARANCE, URINE CLEAR (CLEAR); BACTERIA, URINE AUTO 1+ (NEGATIVE); BILIRUBIN, URINE AUTO NEGATIVE (NEGATIVE); BLOOD, URINE BLOOD 3+ (NEGATIVE); COLOR, URINE STRAW (YELLOW); GLUCOSE, URINE (UA) AUTO NEGATIVE (NEGATIVE); KETONE, URINE AUTO NEGATIVE (NEGATIVE); LEUKOCYTE ESTERASE, URINE AUTO 2+ (NEGATIVE); MUCUS, URINE SMALL (NEGATIVE); NITRITE, URINE AUTO NEGATIVE (NEGATIVE); PROTEIN, URINE AUTO NEGATIVE (NEGATIVE); RBC, URINE AUTO 92 /HPF (0-3); SPECIFIC GRAVITY URINE AUTO 1.006 (1.002-1.035); SQUAMOUS EPITHELIAL CELL UR AU 0 /HPF (0-6); UROBILINOGEN, URINE AUTO 0.2 mg/dL (0.0-2.0); WBC, URINE AUTO 53 /HPF (0-3)
[2018-01-02 16:37] LABS: BEDSIDE GLUCOSE 169 MG/DL (83-110)
[2018-01-02] MEDS ORDERED: MEROPENEM INJ 0.5 GM in APPROPRIATE DILUENT 1 EA IV (17:00)
[2018-01-02] MEDS: ACETAMINOPHEN TAB 650MG DOSE (2X325MG) PO (17:14)
[2018-01-02 17:17] LABS: HEMATOCRIT 26.9 % (42.0-52.0); MEAN CORPUSCULAR HEMOGLOBIN 30.7 pg (27.0-33.0); MEAN CORPUSCULAR HGB CONC 33.5 g/dl (32.0-36.5); MEAN CORPUSCULAR VOLUME 91.8 fl (80.0-96.0); RED BLOOD COUNT 2.93 10^6/uL (4.30-6.10); RED CELL DISTRIBUTION WIDTH 14.4 % (11.5-14.5); WHITE BLOOD COUNT 4.7 10^3/uL (4.0-10.0)
[2018-01-02 17:27] LABS: PLATELET COUNT, AUTOMATED 78 10^3/uL (150-450)
[2018-01-02 17:54] LABS: ANION GAP 14 MEQ/L (8-16); BLOOD UREA NITROGEN 81 MG/DL (7-18); CALCIUM LEVEL 7.9 MG/DL (8.8-10.2); CARBON DIOXIDE LEVEL 22 MEQ/L (21-32); CHLORIDE LEVEL 106 MEQ/L (98-107); CREATININE FOR GFR 4.24 MG/DL (0.70-1.30); GLOMERULAR FILTRATION RATE 14.6 (>42); GLUCOSE, FASTING 150 MG/DL (70-100); POTASSIUM SERUM 3.9 MEQ/L (3.5-5.1); SODIUM LEVEL 142 MEQ/L (136-145)
[2018-01-02] MEDS: MEROPENEM INJ 500 MG in APPROPRIATE DILUENT 1 EA IV (18:14)
[2018-01-02 20:09] LABS: BEDSIDE GLUCOSE 179 MG/DL (83-110)
[2018-01-02] MEDS: PRAVASTATIN 10 MG TAB PO (20:17)
[2018-01-02] MEDS: TAMSULOSIN 0.4 MG CAP PO (20:17)
[2018-01-02] MEDS: LEVEMIR (INSULIN DETEMIR) 1 UNITS/0.01ML SC (20:18)
[2018-01-03] MEDS: HEPARIN SOD (PORCINE) 5000 UNITS/ML VIAL SQ ×3 (05:35→21:59)
[2018-01-03] MEDS: MEROPENEM INJ 500 MG in APPROPRIATE DILUENT 1 EA IV ×2 (05:36→17:35)
[2018-01-03 06:00] LABS: BASO % 0.5 % (0.0-1.0); EOS # 0.1 10^3/uL (0.0-0.50); EOS % 2.3 % (0.0-3.0); HEMATOCRIT 25.2 % (42.0-52.0); HEMOGLOBIN 8.5 g/dl (13.5-17.5); LYMPH # 0.6 10^3/uL (1.5-4.5); LYMPH % 14.4 % (24.0-44.0); MEAN CORPUSCULAR HEMOGLOBIN 31.3 pg (27.0-33.0); MEAN CORPUSCULAR HGB CONC 33.7 g/dl (32.0-36.5); MEAN CORPUSCULAR VOLUME 92.6 fl (80.0-96.0); MONO # 0.4 10^3/uL (0.0-0.8); MONO % 11.1 % (0.0-5.0); NEUTROPHILS # 2.8 10^3/uL (1.8-7.7); NEUTROPHILS % 69.7 % (36.0-66.0); RED BLOOD COUNT 2.72 10^6/uL (4.30-6.10); RED CELL DISTRIBUTION WIDTH 14.2 % (11.5-14.5)
[2018-01-03 06:04] LABS: PLATELET COUNT, AUTOMATED 69 10^3/uL (150-450)
[2018-01-03 06:18] LABS: ANION GAP 12 MEQ/L (8-16); BLOOD UREA NITROGEN 85 MG/DL (7-18); CALCIUM LEVEL 8.1 MG/DL (8.8-10.2); CARBON DIOXIDE LEVEL 23 MEQ/L (21-32); CHLORIDE LEVEL 105 MEQ/L (98-107); CREATININE FOR GFR 4.36 MG/DL (0.70-1.30); GLOMERULAR FILTRATION RATE 14.2 (>42); GLUCOSE, FASTING 134 MG/DL (70-100); MAGNESIUM LEVEL 2.2 MG/DL (1.8-2.4); POTASSIUM SERUM 3.7 MEQ/L (3.5-5.1); SODIUM LEVEL 140 MEQ/L (136-145)
[2018-01-03] MEDS: CALCITRIOL 0.25 MCG CAP (S0169) PO (10:36)
[2018-01-03] MEDS: HumaLOG INSULIN (NovoLOG) PER UNIT SC ×4 (10:36→21:00)
[2018-01-03] MEDS: FOLIC ACID 1 MG TAB PO (10:36)
[2018-01-03] MEDS: (RENVELA) SEVELAMER **CARBONate** 800 MG TAB PO ×3 (10:36→17:35)
[2018-01-03] MEDS: THIAMINE 100 MG TAB PO (10:37)
[2018-01-03] MEDS: CARVedilol 6.25 MG TAB PO ×2 (10:37→21:58)
[2018-01-03] MEDS: PANTOPRAZOLE 40MG TAB (PROTONIX) PO (10:37)
[2018-01-03 11:51] LABS: HEPATITIS B SURFACE ANTIBODY NEGATIVE (POSITIVE)
[2018-01-03 11:56] LABS: HEPATITIS B SURFACE ANTIGEN NEGATIVE (NEGATIVE)
[2018-01-03 12:03] LABS: BEDSIDE GLUCOSE 174 MG/DL (83-110)
[2018-01-03 12:20] LABS: HEPATITIS B CORE ANTIBODY IGM NEGATIVE (NEGATIVE); HEPATITIS C VIRUS ABY INDEX 0.1 INDEX (<0.8)
[2018-01-03 16:33] LABS: BEDSIDE GLUCOSE 181 MG/DL (83-110)
[2018-01-03 20:18] LABS: BEDSIDE GLUCOSE 175 MG/DL (83-110)
[2018-01-03] MEDS: TAMSULOSIN 0.4 MG CAP PO (21:58)
[2018-01-03] MEDS: PRAVASTATIN 10 MG TAB PO (21:58)
[2018-01-03] MEDS: LEVEMIR (INSULIN DETEMIR) 1 UNITS/0.01ML SC (21:59)
[2018-01-04 06:00] LABS: BASO % 0.2 % (0.0-1.0); EOS # 0.2 10^3/uL (0.0-0.50); EOS % 4.3 % (0.0-3.0); HEMOGLOBIN 8.2 g/dl (13.5-17.5); IMMATURE GRANULOCYTE % 1.9 % (0-3.0); LYMPH # 0.8 10^3/uL (1.5-4.5); LYMPH % 18.3 % (24.0-44.0); MEAN CORPUSCULAR HEMOGLOBIN 31.3 pg (27.0-33.0); MEAN CORPUSCULAR HGB CONC 34.2 g/dl (32.0-36.5); MEAN CORPUSCULAR VOLUME 91.6 fl (80.0-96.0); MONO # 0.6 10^3/uL (0.0-0.8); MONO % 14.4 % (0.0-5.0); NEUTROPHILS # 2.5 10^3/uL (1.8-7.7); NEUTROPHILS % 60.9 % (36.0-66.0); RED BLOOD COUNT 2.62 10^6/uL (4.30-6.10); RED CELL DISTRIBUTION WIDTH 14.1 % (11.5-14.5); WHITE BLOOD COUNT 4.2 10^3/uL (4.0-10.0)
[2018-01-04 06:09] LABS: PLATELET COUNT, AUTOMATED 88 10^3/uL (150-450)
[2018-01-04 06:10] LABS: IMMATURE PLATELET FRACTION % 1.7 % (0.0-10.9)
[2018-01-04 06:12] LABS: ANION GAP 12 MEQ/L (8-16); BLOOD UREA NITROGEN 91 MG/DL (7-18); CALCIUM LEVEL 8.1 MG/DL (8.8-10.2); CARBON DIOXIDE LEVEL 23 MEQ/L (21-32); CHLORIDE LEVEL 106 MEQ/L (98-107); CREATININE FOR GFR 4.38 MG/DL (0.70-1.30); GLOMERULAR FILTRATION RATE 14.1 (>42); GLUCOSE, FASTING 138 MG/DL (70-100); MAGNESIUM LEVEL 2.3 MG/DL (1.8-2.4); SODIUM LEVEL 141 MEQ/L (136-145)
[2018-01-04] MEDS: MEROPENEM INJ 500 MG in APPROPRIATE DILUENT 1 EA IV (06:20)
[2018-01-04] MEDS: HEPARIN SOD (PORCINE) 5000 UNITS/ML VIAL SQ ×3 (06:20→21:39)
[2018-01-04] MEDS: PANTOPRAZOLE 40MG TAB (PROTONIX) PO (06:21)
[2018-01-04] MEDS: FOLIC ACID 1 MG TAB PO (06:21)
[2018-01-04] MEDS: THIAMINE 100 MG TAB PO (06:21)
[2018-01-04] MEDS: CALCITRIOL 0.25 MCG CAP (S0169) PO (06:21)
[2018-01-04] MEDS: CARVedilol 6.25 MG TAB PO ×2 (06:21→21:38)
[2018-01-04 08:11] LABS: HEPATITIS B CORE ANTIBODY IGG Negative (Negative)
[2018-01-04] MEDS: HumaLOG INSULIN (NovoLOG) PER UNIT SC ×4 (08:23→21:38)
[2018-01-04] MEDS: (RENVELA) SEVELAMER **CARBONate** 800 MG TAB PO ×3 (08:24→18:15)
[2018-01-04] MEDS: LIDOCAINE 1% SDV 5 ML VIAL SQ (12:15)
[2018-01-04] MEDS: HEPARIN 1,000 UNITS/ML 10ML VIAL (FOR RADIOLOGY& DIALYSIS ONLY) IV (12:15)
[2018-01-04 12:20] LABS: IRON (FE) 27 UG/DL (65-175); PERCENT SATURATION 18.5 % (19.7-50.0); TOTAL IRON BINDING CAPACITY 146 UG/DL (250-450)
[2018-01-04 12:48] LABS: BEDSIDE GLUCOSE 149 MG/DL (83-110)
[2018-01-04] MEDS: MOM 30ML SUSPENSION UDC PO (12:54)
[2018-01-04] MEDS: ACETAMINOPHEN TAB 650MG DOSE (2X325MG) PO (12:55)
[2018-01-04] MEDS: MIRALAX *UNIT DOSE* 17GM PACKET PO (16:21)
[2018-01-04 16:56] LABS: BEDSIDE GLUCOSE 120 MG/DL (83-110)
[2018-01-04] MEDS ORDERED: cefTRIAXone SOD 1 GM VIAL (J0696) IM (18:00)
[2018-01-04] MEDS: PRAVASTATIN 10 MG TAB PO (21:38)
[2018-01-04] MEDS: TAMSULOSIN 0.4 MG CAP PO (21:38)
[2018-01-04] MEDS: SENOKOT S TAB PO (21:38)
[2018-01-04] MEDS: LEVEMIR (INSULIN DETEMIR) 1 UNITS/0.01ML SC (21:39)
[2018-01-05] MEDS: HEPARIN SOD (PORCINE) 5000 UNITS/ML VIAL SQ ×2 (05:46→13:02)
[2018-01-05 06:33] LABS: BASO % 0.4 % (0.0-1.0); EOS # 0.2 10^3/uL (0.0-0.50); EOS % 5.3 % (0.0-3.0); HEMATOCRIT 24.5 % (42.0-52.0); HEMOGLOBIN 8.1 g/dl (13.5-17.5); IMMATURE GRANULOCYTE % 2.2 % (0-3.0); LYMPH # 0.7 10^3/uL (1.5-4.5); LYMPH % 15.2 % (24.0-44.0); MEAN CORPUSCULAR HEMOGLOBIN 30.9 pg (27.0-33.0); MEAN CORPUSCULAR HGB CONC 33.1 g/dl (32.0-36.5); MEAN CORPUSCULAR VOLUME 93.5 fl (80.0-96.0); MONO # 0.5 10^3/uL (0.0-0.8); MONO % 10.8 % (0.0-5.0); NEUTROPHILS % 66.1 % (36.0-66.0); PLATELET COUNT, AUTOMATED 104 10^3/uL (150-450); RED BLOOD COUNT 2.62 10^6/uL (4.30-6.10); WHITE BLOOD COUNT 4.6 10^3/uL (4.0-10.0)
[2018-01-05 06:57] LABS: ANION GAP 9 MEQ/L (8-16); BLOOD UREA NITROGEN 66 MG/DL (7-18); CALCIUM LEVEL 8.6 MG/DL (8.8-10.2); CARBON DIOXIDE LEVEL 27 MEQ/L (21-32); CHLORIDE LEVEL 103 MEQ/L (98-107); CREATININE FOR GFR 3.25 MG/DL (0.70-1.30); GLOMERULAR FILTRATION RATE 19.9 (>42); GLUCOSE, FASTING 132 MG/DL (70-100); MAGNESIUM LEVEL 2.4 MG/DL (1.8-2.4); POTASSIUM SERUM 4.3 MEQ/L (3.5-5.1); SODIUM LEVEL 139 MEQ/L (136-145)
[2018-01-05] MEDS ORDERED: IRON SUCROSE 100MG 5ML VIAL (J1756 PER 1MG) IV (07:30)
[2018-01-05] MEDS: MIRALAX *UNIT DOSE* 17GM PACKET PO ×2 (09:00→10:11)
[2018-01-05] MEDS: (RENVELA) SEVELAMER **CARBONate** 800 MG TAB PO ×2 (10:11→13:03)
[2018-01-05] MEDS: HumaLOG INSULIN (NovoLOG) PER UNIT SC ×2 (10:11→13:03)
[2018-01-05] MEDS: THIAMINE 100 MG TAB PO (10:12)
[2018-01-05] MEDS: SENOKOT S TAB PO (10:12)
[2018-01-05] MEDS: PANTOPRAZOLE 40MG TAB (PROTONIX) PO (10:12)
[2018-01-05] MEDS: CALCITRIOL 0.25 MCG CAP (S0169) PO (10:12)
[2018-01-05] MEDS: CARVedilol 6.25 MG TAB PO (10:12)
[2018-01-05] MEDS: FOLIC ACID 1 MG TAB PO (10:12)
[2018-01-05 12:14] LABS: BEDSIDE GLUCOSE 175 MG/DL (83-110)
[2018-01-05] MEDS ORDERED: FLEET OIL RETENTION ENEMA PR (12:30)
[2018-01-05] MEDS: BISACODYL 10 MG SUPP PR (13:02)
[2018-01-05] MEDS: FOSFOMYCIN TROMETHAMINE 3 GM POWDER PACKET (MONUROL) PO (15:12)
[2018-01-05 15:50] LABS: IMMEDIATE SPIN CROSSMATCH 1 1
[2018-01-05 16:32] LABS: BEDSIDE GLUCOSE 210 MG/DL (83-110)
[2018-01-05] MEDS ORDERED: cefTRIAXone SOD 1 GM VIAL (J0696) IV (18:00)
[2018-01-05] MEDS ORDERED: NITROFURANTOIN (MACROBID) 100 MG CAP PO (21:00)
== END 2018-01-05 16:37 | DRG 474 ==
LOC: M OR 08:31 → M MSPAV 01-02 16:05 → M MS5PR 19:42
PROVIDERS: Orthopaedic Surgery
PROC: 0Y6J0Z2 Detachment at Left Lower Leg, Mid, Open Approach (ICD-10-PCS; principal; 2017-12-30 10:40)
PROC: 30233N1 Transfusion of Nonautologous Red Blood Cells into Peripheral Vein, Percutaneous Approach (ICD-10-PCS; 2017-12-30 12:57)
PROC: 5A1D90Z Performance of Urinary Filtration, Continuous, Greater than 18 hours Per Day (ICD-10-PCS; 2017-12-30 12:57)
DX: M84.675A Pathological fracture in other disease, left foot, initial encounter for fracture (principal); N18.6 End stage renal disease; A52.16 Charcot's arthropathy (tabetic); I50.32 Chronic diastolic (congestive) heart failure; N17.9 Acute kidney failure, unspecified; I13.2 Hypertensive heart and chronic kidney disease with heart failure and with stage 5 chronic kidney disease, or end stage renal disease; N25.81 Secondary hyperparathyroidism of renal origin; K21.9 Gastro-esophageal reflux disease without esophagitis; N40.0 Benign prostatic hyperplasia without lower urinary tract symptoms; Z88.0 Allergy status to penicillin; Z88.1 Allergy status to other antibiotic agents; Z88.8 Allergy status to other drugs, medicaments and biological substances; E11.618 Type 2 diabetes mellitus with other diabetic arthropathy; Z79.899 Other long term (current) drug therapy; Z79.4 Long term (current) use of insulin; E87.5 Hyperkalemia; D69.6 Thrombocytopenia, unspecified; D63.1 Anemia in chronic kidney disease; K59.00 Constipation, unspecified; E87.70 Fluid overload, unspecified

== ENCOUNTER 2018-01-05 16:40 | Inpatient (IN) | payer MEDICARE, MEDICAID ==
[~2018-01-05 16:40] MED LIST changes: +ACETAMINOPHEN TAB 650MG DOSE (2X325MG) PO; +BISACODYL 10 MG SUPP PR; -D5W/0.2% SODIUM CHLORIDE 1,000 ML IV; +DEXTROSE 50% 50 ML SYRINGE IV; +FLEET ENEMA PR; +FLEET OIL RETENTION ENEMA PR; +GLUCAGON FOR INJ 1 MG VIAL (J1610) SC; +GLUCOSE 4 GM CHEW TABLET PO; +LACTIC ACID 12% LOTION 225 GM BTL TOP; +MOM 30ML SUSPENSION UDC PO; +ONDANSETRON 4 MG TAB (S0181) PO; +ONDANSETRON 4MG/2ML VIAL (J2405) IM; +oxyCODONE 5MG TAB PO
[2018-01-05 17:28] LABS: BEDSIDE GLUCOSE 147 MG/DL (83-110)
[2018-01-05] MEDS: (RENVELA) SEVELAMER **CARBONate** 800 MG TAB PO (18:05)
[2018-01-05] MEDS: HumaLOG INSULIN (NovoLOG) PER UNIT SC ×2 (18:05→21:00)
[2018-01-05] MEDS: BISACODYL 5 MG TAB PO (18:05)
[2018-01-05] MEDS: SENNA 8.6 MG TAB (SENOKOT) PO (21:00)
[2018-01-05] MEDS: HEPARIN SOD (PORCINE) 5000 UNITS/ML VIAL SQ (21:57)
[2018-01-05] MEDS: TAMSULOSIN 0.4 MG CAP PO (21:57)
[2018-01-05] MEDS: PRAVASTATIN 10 MG TAB PO (21:58)
[2018-01-05] MEDS: DOCUSATE SODIUM 100 MG CAP PO (21:58)
[2018-01-05] MEDS: CARVedilol 6.25 MG TAB PO (21:58)
[2018-01-05] MEDS: LEVEMIR (INSULIN DETEMIR) 1 UNITS/0.01ML SC (21:59)
[2018-01-05 22:15] LABS: BEDSIDE GLUCOSE 136 MG/DL (83-110)
[2018-01-06] MEDS: HEPARIN SOD (PORCINE) 5000 UNITS/ML VIAL SQ ×3 (05:49→21:13)
[2018-01-06 07:10] LABS: BASO % 0.4 % (0.0-1.0); EOS # 0.3 10^3/uL (0.0-0.50); EOS % 6.7 % (0.0-3.0); HEMATOCRIT 27.4 % (42.0-52.0); HEMOGLOBIN 8.9 g/dl (13.5-17.5); IMMATURE GRANULOCYTE % 3.7 % (0-3.0); LYMPH # 0.9 10^3/uL (1.5-4.5); LYMPH % 17.7 % (24.0-44.0); MEAN CORPUSCULAR HEMOGLOBIN 30.2 pg (27.0-33.0); MEAN CORPUSCULAR HGB CONC 32.5 g/dl (32.0-36.5); MEAN CORPUSCULAR VOLUME 92.9 fl (80.0-96.0); MONO # 0.5 10^3/uL (0.0-0.8); MONO % 9.6 % (0.0-5.0); NEUTROPHILS % 61.9 % (36.0-66.0); PLATELET COUNT, AUTOMATED 112 10^3/uL (150-450); RED BLOOD COUNT 2.95 10^6/uL (4.30-6.10); RED CELL DISTRIBUTION WIDTH 14.4 % (11.5-14.5); WHITE BLOOD COUNT 4.9 10^3/uL (4.0-10.0)
[2018-01-06 07:27] LABS: INR 1.05; PROTHROMBIN TIME 13.8 SECONDS (12.1-14.4)
[2018-01-06] MEDS: HumaLOG INSULIN (NovoLOG) PER UNIT SC ×4 (07:30→21:00)
[2018-01-06 07:33] LABS: ALBUMIN 2.3 GM/DL (3.2-5.2); ALBUMIN/GLOBULIN RATIO 0.74 (1.00-1.93); ALKALINE PHOSPHATASE 58 U/L (45-117); ALT/SGPT 30 U/L (12-78); ANION GAP 11 MEQ/L (8-16); AST/SGOT 25 U/L (7-37); BILIRUBIN,TOTAL 0.6 MG/DL (0.2-1.0); BLOOD UREA NITROGEN 74 MG/DL (7-18); CALCIUM LEVEL 8.1 MG/DL (8.8-10.2); CARBON DIOXIDE LEVEL 26 MEQ/L (21-32); CHLORIDE LEVEL 104 MEQ/L (98-107); CREATININE FOR GFR 3.48 MG/DL (0.70-1.30); GLOMERULAR FILTRATION RATE 18.4 (>42); GLUCOSE, FASTING 97 MG/DL (70-100); POTASSIUM SERUM 4.1 MEQ/L (3.5-5.1); SODIUM LEVEL 141 MEQ/L (136-145); TOTAL PROTEIN 5.4 GM/DL (6.4-8.2)
[2018-01-06] MEDS: BISACODYL 10 MG SUPP PR (09:00)
[2018-01-06] MEDS: THIAMINE 100 MG TAB PO (09:53)
[2018-01-06] MEDS: (RENVELA) SEVELAMER **CARBONate** 800 MG TAB PO ×3 (09:53→17:28)
[2018-01-06] MEDS: CALCITRIOL 0.25 MCG CAP (S0169) PO (09:53)
[2018-01-06] MEDS: PANTOPRAZOLE 40MG TAB (PROTONIX) PO (09:53)
[2018-01-06] MEDS: FUROSEMIDE 40 MG TAB PO (09:54)
[2018-01-06] MEDS: VITAMIN D 50,000 UNITS CAPSULE (ERGOCALCIFEROL 1.25MG) PO (09:54)
[2018-01-06] MEDS: CARVedilol 6.25 MG TAB PO ×2 (09:55→21:10)
[2018-01-06] MEDS: DOCUSATE SODIUM 100 MG CAP PO (09:56)
[2018-01-06] MEDS: diphenhydrAMINE CREAM 30GM TOP ×2 (09:56→21:12)
[2018-01-06] MEDS: MIRALAX *UNIT DOSE* 17GM PACKET PO (09:56)
[2018-01-06] MEDS: FOLIC ACID 1 MG TAB PO (09:56)
[2018-01-06 11:38] LABS: BEDSIDE GLUCOSE 131 MG/DL (83-110)
[2018-01-06 17:08] LABS: BEDSIDE GLUCOSE 150 MG/DL (83-110)
[2018-01-06 20:26] LABS: BEDSIDE GLUCOSE 149 MG/DL (83-110)
[2018-01-06] MEDS: PRAVASTATIN 10 MG TAB PO (21:10)
[2018-01-06] MEDS: TAMSULOSIN 0.4 MG CAP PO (21:10)
[2018-01-06] MEDS: SENNA 8.6 MG TAB (SENOKOT) PO (21:11)
[2018-01-06] MEDS: LEVEMIR (INSULIN DETEMIR) 1 UNITS/0.01ML SC (21:12)
[2018-01-07] MEDS: HEPARIN SOD (PORCINE) 5000 UNITS/ML VIAL SQ ×3 (05:19→20:40)
[2018-01-07 06:39] LABS: BEDSIDE GLUCOSE 138 MG/DL (83-110)
[2018-01-07 07:30] LABS: HEMOGLOBIN 9.2 g/dl (13.5-17.5); MEAN CORPUSCULAR HGB CONC 32.9 g/dl (32.0-36.5); MEAN CORPUSCULAR VOLUME 94.3 fl (80.0-96.0); PLATELET COUNT, AUTOMATED 120 10^3/uL (150-450); RED BLOOD COUNT 2.97 10^6/uL (4.30-6.10); RED CELL DISTRIBUTION WIDTH 14.5 % (11.5-14.5); WHITE BLOOD COUNT 4.7 10^3/uL (4.0-10.0)
[2018-01-07 07:36] LABS: POS COUNT POS FLAG; POSITIVE MORPH POS FLAG
[2018-01-07 07:37] LABS: ADD MANUAL DIFFER YES; DIFF SLIDE NUMBER 42
[2018-01-07 07:58] LABS: ALBUMIN 2.4 GM/DL (3.2-5.2); ALKALINE PHOSPHATASE 60 U/L (45-117); ALT/SGPT 30 U/L (12-78); ANION GAP 9 MEQ/L (8-16); AST/SGOT 27 U/L (7-37); BILIRUBIN,TOTAL 0.6 MG/DL (0.2-1.0); BLOOD UREA NITROGEN 75 MG/DL (7-18); CALCIUM LEVEL 8.7 MG/DL (8.8-10.2); CARBON DIOXIDE LEVEL 25 MEQ/L (21-32); CHLORIDE LEVEL 104 MEQ/L (98-107); CREATININE FOR GFR 3.94 MG/DL (0.70-1.30); GLOMERULAR FILTRATION RATE 15.9 (>42); GLUCOSE, FASTING 124 MG/DL (70-100); POTASSIUM SERUM 4.1 MEQ/L (3.5-5.1); SODIUM LEVEL 138 MEQ/L (136-145); TOTAL PROTEIN 6.4 GM/DL (6.4-8.2)
[2018-01-07] MEDS: (RENVELA) SEVELAMER **CARBONate** 800 MG TAB PO ×3 (08:15→18:13)
[2018-01-07] MEDS: HumaLOG INSULIN (NovoLOG) PER UNIT SC ×4 (08:15→20:41)
[2018-01-07] MEDS: CALCITRIOL 0.25 MCG CAP (S0169) PO (08:15)
[2018-01-07] MEDS: DOCUSATE SODIUM 100 MG CAP PO (08:16)
[2018-01-07] MEDS: FUROSEMIDE 40 MG TAB PO (08:16)
[2018-01-07] MEDS: PANTOPRAZOLE 40MG TAB (PROTONIX) PO (08:16)
[2018-01-07] MEDS: THIAMINE 100 MG TAB PO (08:16)
[2018-01-07] MEDS: FOLIC ACID 1 MG TAB PO (08:16)
[2018-01-07] MEDS: MIRALAX *UNIT DOSE* 17GM PACKET PO (08:17)
[2018-01-07] MEDS: CARVedilol 6.25 MG TAB PO ×2 (08:17→20:41)
[2018-01-07 08:32] LABS: ANISOCYTOSIS 1+; ATYPICAL LYMPH 2 % (0-5); BASOPHILS 1 % (0-4); EOSINOPHILS 6 % (0-5); LYMPHOCYTES 23 % (16-52); MYELOCYTES 3 % (0-0); NEUTROPHILS 65 % (35-75); PLATELET ESTIMATE DECREASED (NORMAL); POIKILOCYTOSIS 1+
[2018-01-07 12:11] LABS: BEDSIDE GLUCOSE 104 MG/DL (83-110)
[2018-01-07 17:00] LABS: BEDSIDE GLUCOSE 110 MG/DL (83-110)
[2018-01-07 19:56] LABS: BEDSIDE GLUCOSE 131 MG/DL (83-110)
[2018-01-07] MEDS: TAMSULOSIN 0.4 MG CAP PO (20:40)
[2018-01-07] MEDS: diphenhydrAMINE CREAM 30GM TOP (20:40)
[2018-01-07] MEDS: LEVEMIR (INSULIN DETEMIR) 1 UNITS/0.01ML SC (20:41)
[2018-01-07] MEDS: PRAVASTATIN 10 MG TAB PO (20:41)
[2018-01-07] MEDS: SENNA 8.6 MG TAB (SENOKOT) PO (20:41)
[2018-01-08 05:30] LABS: BEDSIDE GLUCOSE 116 MG/DL (83-110)
[2018-01-08] MEDS: HEPARIN SOD (PORCINE) 5000 UNITS/ML VIAL SQ ×3 (05:39→20:58)
[2018-01-08] MEDS: FUROSEMIDE 40 MG TAB PO (05:43)
[2018-01-08] MEDS: THIAMINE 100 MG TAB PO (05:44)
[2018-01-08] MEDS: CALCITRIOL 0.25 MCG CAP (S0169) PO (05:44)
[2018-01-08] MEDS: CARVedilol 6.25 MG TAB PO ×2 (05:45→20:56)
[2018-01-08] MEDS: FOLIC ACID 1 MG TAB PO (05:45)
[2018-01-08] MEDS: DOCUSATE SODIUM 100 MG CAP PO (05:46)
[2018-01-08] MEDS: PANTOPRAZOLE 40MG TAB (PROTONIX) PO (05:46)
[2018-01-08] MEDS: MIRALAX *UNIT DOSE* 17GM PACKET PO (05:46)
[2018-01-08 07:54] LABS: HEMATOCRIT 29.6 % (42.0-52.0); HEMOGLOBIN 9.6 g/dl (13.5-17.5); MEAN CORPUSCULAR HEMOGLOBIN 30.7 pg (27.0-33.0); MEAN CORPUSCULAR HGB CONC 32.4 g/dl (32.0-36.5); MEAN CORPUSCULAR VOLUME 94.6 fl (80.0-96.0); PLATELET COUNT, AUTOMATED 159 10^3/uL (150-450); RED BLOOD COUNT 3.13 10^6/uL (4.30-6.10); RED CELL DISTRIBUTION WIDTH 14.5 % (11.5-14.5); WHITE BLOOD COUNT 4.7 10^3/uL (4.0-10.0)
[2018-01-08 07:59] LABS: ADD MANUAL DIFFER YES; DIFF SLIDE NUMBER 24; POS COUNT POS FLAG; POSITIVE MORPH POS FLAG
[2018-01-08 08:19] LABS: ALBUMIN 2.6 GM/DL (3.2-5.2); ALBUMIN/GLOBULIN RATIO 0.65 (1.00-1.93); ALKALINE PHOSPHATASE 58 U/L (45-117); ALT/SGPT 33 U/L (12-78); ANION GAP 8 MEQ/L (8-16); AST/SGOT 27 U/L (7-37); BILIRUBIN,TOTAL 0.6 MG/DL (0.2-1.0); BLOOD UREA NITROGEN 77 MG/DL (7-18); CALCIUM LEVEL 8.9 MG/DL (8.8-10.2); CARBON DIOXIDE LEVEL 26 MEQ/L (21-32); CHLORIDE LEVEL 106 MEQ/L (98-107); CREATININE FOR GFR 4.03 MG/DL (0.70-1.30); GLOMERULAR FILTRATION RATE 15.5 (>42); GLUCOSE, FASTING 135 MG/DL (70-100); POTASSIUM SERUM 4.6 MEQ/L (3.5-5.1); SODIUM LEVEL 140 MEQ/L (136-145); TOTAL PROTEIN 6.6 GM/DL (6.4-8.2)
[2018-01-08] MEDS: (RENVELA) SEVELAMER **CARBONate** 800 MG TAB PO ×3 (08:25→17:35)
[2018-01-08 08:26] LABS: ATYPICAL LYMPH 1 % (0-5); BANDS 1 % (< 11); EOSINOPHILS 6 % (0-5); LYMPHOCYTES 10 % (16-52); METAMYELOCYTES 2 % (0-0); MONOCYTES 2 % (0-8); MYELOCYTES 1 % (0-0); NEUTROPHILS 77 % (35-75)
[2018-01-08] MEDS: HumaLOG INSULIN (NovoLOG) PER UNIT SC ×4 (08:26→20:57)
[2018-01-08 08:28] LABS: MICROCYTOSIS 1+; PLATELET ESTIMATE DECREASED (NORMAL)
[2018-01-08] MEDS ORDERED: FOSFOMYCIN TROMETHAMINE 3 GM POWDER PACKET (MONUROL) PO (09:00)
[2018-01-08] MEDS: HEPARIN 1,000 UNITS/ML 10ML VIAL (FOR RADIOLOGY& DIALYSIS ONLY) IV (10:00)
[2018-01-08 12:38] LABS: BEDSIDE GLUCOSE 93 MG/DL (83-110)
[2018-01-08] MEDS: FOSFOMYCIN TROMETHAMINE 3 GM POWDER PACKET (MONUROL) PO (13:43)
[2018-01-08 16:55] LABS: BEDSIDE GLUCOSE 150 MG/DL (83-110)
[2018-01-08 20:56] LABS: BEDSIDE GLUCOSE 153 MG/DL (83-110)
[2018-01-08] MEDS: LEVEMIR (INSULIN DETEMIR) 1 UNITS/0.01ML SC (20:56)
[2018-01-08] MEDS: TAMSULOSIN 0.4 MG CAP PO (20:56)
[2018-01-08] MEDS: SENNA 8.6 MG TAB (SENOKOT) PO (20:57)
[2018-01-08] MEDS: PRAVASTATIN 10 MG TAB PO (20:57)
[2018-01-08] MEDS: diphenhydrAMINE CREAM 30GM TOP (21:00)
[2018-01-09] MEDS: HEPARIN SOD (PORCINE) 5000 UNITS/ML VIAL SQ ×3 (05:47→22:03)
[2018-01-09 05:57] LABS: BEDSIDE GLUCOSE 121 MG/DL (83-110)
[2018-01-09 07:17] LABS: HEMATOCRIT 27.7 % (42.0-52.0); HEMOGLOBIN 9.1 g/dl (13.5-17.5); MEAN CORPUSCULAR HEMOGLOBIN 30.8 pg (27.0-33.0); MEAN CORPUSCULAR HGB CONC 32.9 g/dl (32.0-36.5); MEAN CORPUSCULAR VOLUME 93.9 fl (80.0-96.0); PLATELET COUNT, AUTOMATED 162 10^3/uL (150-450); RED BLOOD COUNT 2.95 10^6/uL (4.30-6.10); RED CELL DISTRIBUTION WIDTH 14.3 % (11.5-14.5); WHITE BLOOD COUNT 5.2 10^3/uL (4.0-10.0)
[2018-01-09 07:23] LABS: ADD MANUAL DIFFER YES; DIFF SLIDE NUMBER 14; POS COUNT POS FLAG; POSITIVE MORPH POS FLAG
[2018-01-09 07:38] LABS: ALBUMIN 2.5 GM/DL (3.2-5.2); ALBUMIN/GLOBULIN RATIO 0.68 (1.00-1.93); ALKALINE PHOSPHATASE 50 U/L (45-117); ALT/SGPT 32 U/L (12-78); ANION GAP 6 MEQ/L (8-16); AST/SGOT 30 U/L (7-37); BILIRUBIN,TOTAL 0.6 MG/DL (0.2-1.0); BLOOD UREA NITROGEN 40 MG/DL (7-18); CALCIUM LEVEL 8.2 MG/DL (8.8-10.2); CARBON DIOXIDE LEVEL 31 MEQ/L (21-32); CHLORIDE LEVEL 103 MEQ/L (98-107); CREATININE FOR GFR 2.94 MG/DL (0.70-1.30); GLOMERULAR FILTRATION RATE 22.3 (>42); GLUCOSE, FASTING 117 MG/DL (70-100); POTASSIUM SERUM 3.6 MEQ/L (3.5-5.1); SODIUM LEVEL 140 MEQ/L (136-145); TOTAL PROTEIN 6.2 GM/DL (6.4-8.2)
[2018-01-09 08:18] LABS: ATYPICAL LYMPH 3 % (0-5); EOSINOPHILS 4 % (0-5); LYMPHOCYTES 16 % (16-52); MONOCYTES 3 % (0-8); MYELOCYTES 4 % (0-0); NEUTROPHILS 70 % (35-75); PLATELET CLUMPS SMALL AMT; PLATELET ESTIMATE NORMAL (NORMAL)
[2018-01-09] MEDS: MIRALAX *UNIT DOSE* 17GM PACKET PO (09:00)
[2018-01-09] MEDS: CALCITRIOL 0.25 MCG CAP (S0169) PO (09:08)
[2018-01-09] MEDS: FOLIC ACID 1 MG TAB PO (09:08)
[2018-01-09] MEDS: PANTOPRAZOLE 40MG TAB (PROTONIX) PO (09:08)
[2018-01-09] MEDS: (RENVELA) SEVELAMER **CARBONate** 800 MG TAB PO ×3 (09:08→17:11)
[2018-01-09] MEDS: CARVedilol 6.25 MG TAB PO ×2 (09:08→22:01)
[2018-01-09] MEDS: THIAMINE 100 MG TAB PO (09:08)
[2018-01-09] MEDS: DOCUSATE SODIUM 100 MG CAP PO (09:08)
[2018-01-09] MEDS: FUROSEMIDE 40 MG TAB PO (09:09)
[2018-01-09] MEDS: HumaLOG INSULIN (NovoLOG) PER UNIT SC ×5 (09:09→21:00)
[2018-01-09 11:30] LABS: BEDSIDE GLUCOSE 74 MG/DL (83-110)
[2018-01-09] MEDS ORDERED: IRON SUCROSE 100MG 5ML VIAL (J1756 PER 1MG) IV (16:30)
[2018-01-09 16:43] LABS: BEDSIDE GLUCOSE 161 MG/DL (83-110)
[2018-01-09 16:52] LABS: IRON (FE) 67 UG/DL (65-175)
[2018-01-09 20:20] LABS: BEDSIDE GLUCOSE 127 MG/DL (83-110)
[2018-01-09] MEDS: SENNA 8.6 MG TAB (SENOKOT) PO (20:40)
[2018-01-09] MEDS: PRAVASTATIN 10 MG TAB PO (22:02)
[2018-01-09] MEDS: TAMSULOSIN 0.4 MG CAP PO (22:02)
[2018-01-09] MEDS: LEVEMIR (INSULIN DETEMIR) 1 UNITS/0.01ML SC (22:02)
[2018-01-10] MEDS: HEPARIN SOD (PORCINE) 5000 UNITS/ML VIAL SQ ×3 (06:15→21:52)
[2018-01-10 07:01] LABS: HEMATOCRIT 27.8 % (42.0-52.0); HEMOGLOBIN 8.9 g/dl (13.5-17.5); MEAN CORPUSCULAR HEMOGLOBIN 30.7 pg (27.0-33.0); MEAN CORPUSCULAR VOLUME 95.9 fl (80.0-96.0); PLATELET COUNT, AUTOMATED 150 10^3/uL (150-450); RED CELL DISTRIBUTION WIDTH 14.4 % (11.5-14.5); WHITE BLOOD COUNT 4.4 10^3/uL (4.0-10.0)
[2018-01-10 07:09] LABS: ADD MANUAL DIFFER YES; DIFF SLIDE NUMBER 5; INR 1.14; POS COUNT POS FLAG; POSITIVE MORPH POS FLAG; PROTHROMBIN TIME 14.8 SECONDS (12.1-14.4)
[2018-01-10 07:14] LABS: ALBUMIN 2.4 GM/DL (3.2-5.2); ALBUMIN/GLOBULIN RATIO 0.67 (1.00-1.93); ALKALINE PHOSPHATASE 53 U/L (45-117); ALT/SGPT 34 U/L (12-78); ANION GAP 7 MEQ/L (8-16); AST/SGOT 29 U/L (7-37); BILIRUBIN,TOTAL 0.7 MG/DL (0.2-1.0); BLOOD UREA NITROGEN 46 MG/DL (7-18); CALCIUM LEVEL 8.5 MG/DL (8.8-10.2); CARBON DIOXIDE LEVEL 30 MEQ/L (21-32); CHLORIDE LEVEL 104 MEQ/L (98-107); CREATININE FOR GFR 3.52 MG/DL (0.70-1.30); GLOMERULAR FILTRATION RATE 18.1 (>42); GLUCOSE, FASTING 108 MG/DL (70-100); POTASSIUM SERUM 3.6 MEQ/L (3.5-5.1); SODIUM LEVEL 141 MEQ/L (136-145)
[2018-01-10 08:11] LABS: BANDS 6 % (< 11); EOSINOPHILS 9 % (0-5); LYMPHOCYTES 29 % (16-52); MONOCYTES 2 % (0-8); MYELOCYTES 4 % (0-0); NEUTROPHILS 50 % (35-75)
[2018-01-10 08:12] LABS: ANISOCYTOSIS 1+; HYPOCHROMASIA 1+; PLATELET ESTIMATE NORMAL (NORMAL)
[2018-01-10] MEDS: HumaLOG INSULIN (NovoLOG) PER UNIT SC ×4 (08:37→21:00)
[2018-01-10] MEDS: CALCITRIOL 0.25 MCG CAP (S0169) PO (08:37)
[2018-01-10] MEDS: PANTOPRAZOLE 40MG TAB (PROTONIX) PO (08:37)
[2018-01-10] MEDS: (RENVELA) SEVELAMER **CARBONate** 800 MG TAB PO ×3 (08:37→17:30)
[2018-01-10] MEDS: THIAMINE 100 MG TAB PO (08:37)
[2018-01-10] MEDS: CARVedilol 6.25 MG TAB PO ×2 (08:37→21:51)
[2018-01-10] MEDS: FOLIC ACID 1 MG TAB PO (08:37)
[2018-01-10] MEDS: diphenhydrAMINE CREAM 30GM TOP (08:38)
[2018-01-10] MEDS: MIRALAX *UNIT DOSE* 17GM PACKET PO (08:39)
[2018-01-10] MEDS: DOCUSATE SODIUM 100 MG CAP PO (08:39)
[2018-01-10 11:40] LABS: BEDSIDE GLUCOSE 135 MG/DL (83-110)
[2018-01-10 16:35] LABS: BEDSIDE GLUCOSE 170 MG/DL (83-110)
[2018-01-10 20:56] LABS: BEDSIDE GLUCOSE 116 MG/DL (83-110)
[2018-01-10] MEDS: SENNA 8.6 MG TAB (SENOKOT) PO (21:00)
[2018-01-10] MEDS: PRAVASTATIN 10 MG TAB PO (21:50)
[2018-01-10] MEDS: TAMSULOSIN 0.4 MG CAP PO (21:50)
[2018-01-10] MEDS: LEVEMIR (INSULIN DETEMIR) 1 UNITS/0.01ML SC (21:51)
[2018-01-11] MEDS: HEPARIN SOD (PORCINE) 5000 UNITS/ML VIAL SQ ×3 (05:25→21:16)
[2018-01-11 05:26] LABS: BEDSIDE GLUCOSE 107 MG/DL (83-110)
[2018-01-11 06:58] LABS: HEMOGLOBIN 8.8 g/dl (13.5-17.5); MEAN CORPUSCULAR HEMOGLOBIN 31.3 pg (27.0-33.0); MEAN CORPUSCULAR HGB CONC 32.6 g/dl (32.0-36.5); MEAN CORPUSCULAR VOLUME 96.1 fl (80.0-96.0); PLATELET COUNT, AUTOMATED 154 10^3/uL (150-450); RED BLOOD COUNT 2.81 10^6/uL (4.30-6.10); RED CELL DISTRIBUTION WIDTH 14.6 % (11.5-14.5)
[2018-01-11 07:04] LABS: ADD MANUAL DIFFER YES; DIFF SLIDE NUMBER 9; POS COUNT POS FLAG; POSITIVE MORPH POS FLAG
[2018-01-11 07:15] LABS: ALBUMIN 2.7 GM/DL (3.2-5.2); ALBUMIN/GLOBULIN RATIO 0.82 (1.00-1.93); ALKALINE PHOSPHATASE 52 U/L (45-117); ALT/SGPT 34 U/L (12-78); ANION GAP 10 MEQ/L (8-16); AST/SGOT 28 U/L (7-37); BILIRUBIN,TOTAL 0.6 MG/DL (0.2-1.0); BLOOD UREA NITROGEN 48 MG/DL (7-18); CALCIUM LEVEL 8.6 MG/DL (8.8-10.2); CARBON DIOXIDE LEVEL 25 MEQ/L (21-32); CHLORIDE LEVEL 108 MEQ/L (98-107); CREATININE FOR GFR 3.66 MG/DL (0.70-1.30); GLOMERULAR FILTRATION RATE 17.4 (>42); GLUCOSE, FASTING 112 MG/DL (70-100); POTASSIUM SERUM 3.9 MEQ/L (3.5-5.1); SODIUM LEVEL 143 MEQ/L (136-145)
[2018-01-11 07:47] LABS: ATYPICAL LYMPH 3 % (0-5); BANDS 7 % (< 11); EOSINOPHILS 6 % (0-5); LYMPHOCYTES 16 % (16-52); METAMYELOCYTES 2 % (0-0); MONOCYTES 9 % (0-8); NEUTROPHILS 57 % (35-75)
[2018-01-11 07:49] LABS: PLATELET ESTIMATE NORMAL (NORMAL)
[2018-01-11] MEDS: MIRALAX *UNIT DOSE* 17GM PACKET PO (07:56)
[2018-01-11] MEDS: FOLIC ACID 1 MG TAB PO (08:02)
[2018-01-11] MEDS: CALCITRIOL 0.25 MCG CAP (S0169) PO (08:02)
[2018-01-11] MEDS: PANTOPRAZOLE 40MG TAB (PROTONIX) PO (08:02)
[2018-01-11] MEDS: (RENVELA) SEVELAMER **CARBONate** 800 MG TAB PO ×3 (08:02→17:53)
[2018-01-11] MEDS: THIAMINE 100 MG TAB PO (08:02)
[2018-01-11] MEDS: HumaLOG INSULIN (NovoLOG) PER UNIT SC ×4 (08:02→21:00)
[2018-01-11] MEDS: FOSFOMYCIN TROMETHAMINE 3 GM POWDER PACKET (MONUROL) PO ×2 (08:03→12:25)
[2018-01-11] MEDS: CARVedilol 6.25 MG TAB PO ×2 (08:03→21:16)
[2018-01-11] MEDS: DOCUSATE SODIUM 100 MG CAP PO (08:14)
[2018-01-11] MEDS: EMLA CREAM 5GM (LIDOCAINE/PRILOCAINE) TOP (11:16)
[2018-01-11 11:46] LABS: BEDSIDE GLUCOSE 85 MG/DL (83-110)
[2018-01-11] MEDS ORDERED: DARBEPOETIN 300 MCG/0.6 ML *DIALYSIS* SYRINGE (J0882) IV (13:00)
[2018-01-11] MEDS: DARBEPOETIN 100 MCG/0.5 ML *DIALYSIS* SYRINGE (J0882) IV (17:07)
[2018-01-11] MEDS: HEPARIN 1,000 UNITS/ML 10ML VIAL (FOR RADIOLOGY& DIALYSIS ONLY) IV (17:07)
[2018-01-11 17:10] LABS: BEDSIDE GLUCOSE 175 MG/DL (83-110)
[2018-01-11 19:29] LABS: BEDSIDE GLUCOSE 169 MG/DL (83-110)
[2018-01-11] MEDS: SENNA 8.6 MG TAB (SENOKOT) PO (21:00)
[2018-01-11] MEDS: TAMSULOSIN 0.4 MG CAP PO (21:15)
[2018-01-11] MEDS: PRAVASTATIN 10 MG TAB PO (21:16)
[2018-01-11] MEDS: LEVEMIR (INSULIN DETEMIR) 1 UNITS/0.01ML SC (21:17)
[2018-01-11] MEDS: diphenhydrAMINE CREAM 30GM TOP (21:17)
[2018-01-12 05:45] LABS: BEDSIDE GLUCOSE 108 MG/DL (83-110)
[2018-01-12] MEDS: HEPARIN SOD (PORCINE) 5000 UNITS/ML VIAL SQ ×3 (05:55→21:51)
[2018-01-12 06:34] LABS: BASO % 0.5 % (0.0-1.0); EOS # 0.2 10^3/uL (0.0-0.50); EOS % 4.6 % (0.0-3.0); HEMATOCRIT 25.9 % (42.0-52.0); HEMOGLOBIN 8.4 g/dl (13.5-17.5); IMMATURE GRANULOCYTE % 3.9 % (0-3.0); LYMPH # 1.1 10^3/uL (1.5-4.5); LYMPH % 25.2 % (24.0-44.0); MEAN CORPUSCULAR HEMOGLOBIN 31.3 pg (27.0-33.0); MEAN CORPUSCULAR HGB CONC 32.4 g/dl (32.0-36.5); MEAN CORPUSCULAR VOLUME 96.6 fl (80.0-96.0); MONO # 0.4 10^3/uL (0.0-0.8); MONO % 9.9 % (0.0-5.0); NEUTROPHILS # 2.4 10^3/uL (1.8-7.7); NEUTROPHILS % 55.9 % (36.0-66.0); PLATELET COUNT, AUTOMATED 134 10^3/uL (150-450); RED BLOOD COUNT 2.68 10^6/uL (4.30-6.10); RED CELL DISTRIBUTION WIDTH 14.6 % (11.5-14.5); WHITE BLOOD COUNT 4.3 10^3/uL (4.0-10.0)
[2018-01-12 06:56] LABS: ALBUMIN 2.6 GM/DL (3.2-5.2); ALBUMIN/GLOBULIN RATIO 0.81 (1.00-1.93); ALKALINE PHOSPHATASE 52 U/L (45-117); ALT/SGPT 34 U/L (12-78); ANION GAP 8 MEQ/L (8-16); AST/SGOT 30 U/L (7-37); BILIRUBIN,TOTAL 0.5 MG/DL (0.2-1.0); BLOOD UREA NITROGEN 26 MG/DL (7-18); CALCIUM LEVEL 8.8 MG/DL (8.8-10.2); CARBON DIOXIDE LEVEL 30 MEQ/L (21-32); CHLORIDE LEVEL 104 MEQ/L (98-107); CREATININE FOR GFR 2.91 MG/DL (0.70-1.30); GLOMERULAR FILTRATION RATE 22.6 (>42); GLUCOSE, FASTING 101 MG/DL (70-100); PHOSPHORUS LEVEL 2.9 MG/DL (2.5-4.9); SODIUM LEVEL 142 MEQ/L (136-145); TOTAL PROTEIN 5.8 GM/DL (6.4-8.2)
[2018-01-12] MEDS: HumaLOG INSULIN (NovoLOG) PER UNIT SC ×4 (07:30→21:00)
[2018-01-12] MEDS: THIAMINE 100 MG TAB PO (08:59)
[2018-01-12] MEDS: CALCITRIOL 0.25 MCG CAP (S0169) PO (08:59)
[2018-01-12] MEDS: PANTOPRAZOLE 40MG TAB (PROTONIX) PO (08:59)
[2018-01-12] MEDS: FOLIC ACID 1 MG TAB PO (08:59)
[2018-01-12] MEDS: (RENVELA) SEVELAMER **CARBONate** 800 MG TAB PO ×3 (09:00→17:41)
[2018-01-12] MEDS: MIRALAX *UNIT DOSE* 17GM PACKET PO (09:00)
[2018-01-12] MEDS: DOCUSATE SODIUM 100 MG CAP PO (09:00)
[2018-01-12] MEDS: CARVedilol 6.25 MG TAB PO ×2 (09:07→21:51)
[2018-01-12 10:03] LABS: PTH INTACT 31.6 PG/ML (18.5-88.0)
[2018-01-12 11:30] LABS: BEDSIDE GLUCOSE 72 MG/DL (83-110)
[2018-01-12 17:12] LABS: BEDSIDE GLUCOSE 177 MG/DL (83-110)
[2018-01-12 20:29] LABS: BEDSIDE GLUCOSE 196 MG/DL (83-110)
[2018-01-12] MEDS: SENNA 8.6 MG TAB (SENOKOT) PO (21:00)
[2018-01-12] MEDS: TAMSULOSIN 0.4 MG CAP PO (21:50)
[2018-01-12] MEDS: LEVEMIR (INSULIN DETEMIR) 1 UNITS/0.01ML SC (21:51)
[2018-01-12] MEDS: PRAVASTATIN 10 MG TAB PO (21:51)
[2018-01-13] MEDS: HEPARIN SOD (PORCINE) 5000 UNITS/ML VIAL SQ ×3 (06:11→21:53)
[2018-01-13 07:18] LABS: BASO % 0.8 % (0.0-1.0); EOS # 0.2 10^3/uL (0.0-0.50); EOS % 4.5 % (0.0-3.0); HEMATOCRIT 25.7 % (42.0-52.0); HEMOGLOBIN 8.1 g/dl (13.5-17.5); IMMATURE GRANULOCYTE % 4.8 % (0-3.0); LYMPH % 25.9 % (24.0-44.0); MEAN CORPUSCULAR HGB CONC 31.5 g/dl (32.0-36.5); MEAN CORPUSCULAR VOLUME 98.5 fl (80.0-96.0); MONO # 0.4 10^3/uL (0.0-0.8); MONO % 10.7 % (0.0-5.0); NEUTROPHILS % 53.3 % (36.0-66.0); PLATELET COUNT, AUTOMATED 126 10^3/uL (150-450); RED BLOOD COUNT 2.61 10^6/uL (4.30-6.10); RED CELL DISTRIBUTION WIDTH 14.6 % (11.5-14.5); WHITE BLOOD COUNT 3.7 10^3/uL (4.0-10.0)
[2018-01-13 07:29] LABS: INR 1.05; PROTHROMBIN TIME 13.8 SECONDS (12.1-14.4)
[2018-01-13 07:36] LABS: ALBUMIN 2.7 GM/DL (3.2-5.2); ALBUMIN/GLOBULIN RATIO 0.84 (1.00-1.93); ALKALINE PHOSPHATASE 56 U/L (45-117); ALT/SGPT 34 U/L (12-78); ANION GAP 10 MEQ/L (8-16); AST/SGOT 29 U/L (7-37); BILIRUBIN,TOTAL 0.5 MG/DL (0.2-1.0); BLOOD UREA NITROGEN 40 MG/DL (7-18); CALCIUM LEVEL 8.7 MG/DL (8.8-10.2); CARBON DIOXIDE LEVEL 27 MEQ/L (21-32); CHLORIDE LEVEL 109 MEQ/L (98-107); CREATININE FOR GFR 3.48 MG/DL (0.70-1.30); GLOMERULAR FILTRATION RATE 18.4 (>42); GLUCOSE, FASTING 106 MG/DL (70-100); SODIUM LEVEL 146 MEQ/L (136-145); TOTAL PROTEIN 5.9 GM/DL (6.4-8.2)
[2018-01-13] MEDS: CALCITRIOL 0.25 MCG CAP (S0169) PO (07:57)
[2018-01-13] MEDS: VITAMIN D 50,000 UNITS CAPSULE (ERGOCALCIFEROL 1.25MG) PO (07:57)
[2018-01-13] MEDS: HumaLOG INSULIN (NovoLOG) PER UNIT SC ×4 (07:57→21:00)
[2018-01-13] MEDS: (RENVELA) SEVELAMER **CARBONate** 800 MG TAB PO ×3 (07:57→17:55)
[2018-01-13] MEDS: PANTOPRAZOLE 40MG TAB (PROTONIX) PO (08:00)
[2018-01-13] MEDS: DOCUSATE SODIUM 100 MG CAP PO (08:00)
[2018-01-13] MEDS: CARVedilol 6.25 MG TAB PO ×2 (08:00→21:53)
[2018-01-13] MEDS: MIRALAX *UNIT DOSE* 17GM PACKET PO (08:00)
[2018-01-13] MEDS: FOLIC ACID 1 MG TAB PO (08:00)
[2018-01-13] MEDS: THIAMINE 100 MG TAB PO (08:00)
[2018-01-13] MEDS: EMLA CREAM 5GM (LIDOCAINE/PRILOCAINE) TOP (10:23)
[2018-01-13 17:19] LABS: BEDSIDE GLUCOSE 135 MG/DL (83-110)
[2018-01-13] MEDS: SENNA 8.6 MG TAB (SENOKOT) PO (21:00)
[2018-01-13 21:51] LABS: BEDSIDE GLUCOSE 131 MG/DL (83-110)
[2018-01-13] MEDS: PRAVASTATIN 10 MG TAB PO (21:52)
[2018-01-13] MEDS: TAMSULOSIN 0.4 MG CAP PO (21:53)
[2018-01-13] MEDS: diphenhydrAMINE CREAM 30GM TOP (21:54)
[2018-01-13] MEDS: LEVEMIR (INSULIN DETEMIR) 1 UNITS/0.01ML SC (21:54)
[2018-01-14] MEDS: HEPARIN SOD (PORCINE) 5000 UNITS/ML VIAL SQ ×3 (05:47→21:54)
[2018-01-14 06:57] LABS: BASO % 0.9 % (0.0-1.0); EOS # 0.2 10^3/uL (0.0-0.50); EOS % 4.4 % (0.0-3.0); HEMOGLOBIN 8.5 g/dl (13.5-17.5); IMMATURE GRANULOCYTE % 4.2 % (0-3.0); LYMPH # 1.2 10^3/uL (1.5-4.5); LYMPH % 27.2 % (24.0-44.0); MEAN CORPUSCULAR HEMOGLOBIN 31.5 pg (27.0-33.0); MEAN CORPUSCULAR HGB CONC 32.7 g/dl (32.0-36.5); MEAN CORPUSCULAR VOLUME 96.3 fl (80.0-96.0); MONO # 0.4 10^3/uL (0.0-0.8); MONO % 10.3 % (0.0-5.0); NEUTROPHILS # 2.3 10^3/uL (1.8-7.7); PLATELET COUNT, AUTOMATED 139 10^3/uL (150-450); RED CELL DISTRIBUTION WIDTH 14.7 % (11.5-14.5); WHITE BLOOD COUNT 4.3 10^3/uL (4.0-10.0)
[2018-01-14 07:13] LABS: ALBUMIN 2.7 GM/DL (3.2-5.2); ALBUMIN/GLOBULIN RATIO 0.79 (1.00-1.93); ALKALINE PHOSPHATASE 57 U/L (45-117); ALT/SGPT 33 U/L (12-78); ANION GAP 10 MEQ/L (8-16); AST/SGOT 29 U/L (7-37); BILIRUBIN,TOTAL 0.6 MG/DL (0.2-1.0); BLOOD UREA NITROGEN 27 MG/DL (7-18); CALCIUM LEVEL 8.9 MG/DL (8.8-10.2); CARBON DIOXIDE LEVEL 29 MEQ/L (21-32); CHLORIDE LEVEL 104 MEQ/L (98-107); GLOMERULAR FILTRATION RATE 21.8 (>42); GLUCOSE, FASTING 119 MG/DL (70-100); POTASSIUM SERUM 3.9 MEQ/L (3.5-5.1); SODIUM LEVEL 143 MEQ/L (136-145); TOTAL PROTEIN 6.1 GM/DL (6.4-8.2)
[2018-01-14] MEDS ORDERED: DARBEPOETIN 100 MCG/0.5 ML *DIALYSIS* SYRINGE (J0882) IV (08:45)
[2018-01-14] MEDS: MIRALAX *UNIT DOSE* 17GM PACKET PO (09:00)
[2018-01-14] MEDS: DOCUSATE SODIUM 100 MG CAP PO (09:00)
[2018-01-14] MEDS: CARVedilol 6.25 MG TAB PO ×2 (09:51→21:54)
[2018-01-14] MEDS: THIAMINE 100 MG TAB PO (09:51)
[2018-01-14] MEDS: PANTOPRAZOLE 40MG TAB (PROTONIX) PO (09:51)
[2018-01-14] MEDS: (RENVELA) SEVELAMER **CARBONate** 800 MG TAB PO ×3 (09:51→17:38)
[2018-01-14] MEDS: FOLIC ACID 1 MG TAB PO (09:51)
[2018-01-14] MEDS: CALCITRIOL 0.25 MCG CAP (S0169) PO (09:51)
[2018-01-14] MEDS: HumaLOG INSULIN (NovoLOG) PER UNIT SC ×4 (09:52→21:00)
[2018-01-14 11:45] LABS: BEDSIDE GLUCOSE 84 MG/DL (83-110)
[2018-01-14 14:11] LABS: VITAMIN B12 LEVEL 806 PG/ML (247-911)
[2018-01-14 14:12] LABS: FOLATE 20.8 NG/ML (>5.4)
[2018-01-14 17:03] LABS: BEDSIDE GLUCOSE 159 MG/DL (83-110)
[2018-01-14 20:04] LABS: BEDSIDE GLUCOSE 94 MG/DL (83-110)
[2018-01-14] MEDS: SENNA 8.6 MG TAB (SENOKOT) PO (21:00)
[2018-01-14] MEDS: PRAVASTATIN 10 MG TAB PO (21:54)
[2018-01-14] MEDS: TAMSULOSIN 0.4 MG CAP PO (21:54)
[2018-01-14] MEDS: LEVEMIR (INSULIN DETEMIR) 1 UNITS/0.01ML SC (21:55)
[2018-01-14] MEDS: diphenhydrAMINE CREAM 30GM TOP (21:58)
[2018-01-15] MEDS: HEPARIN SOD (PORCINE) 5000 UNITS/ML VIAL SQ ×3 (06:39→21:59)
[2018-01-15 06:44] LABS: BASO % 0.7 % (0.0-1.0); EOS # 0.2 10^3/uL (0.0-0.50); EOS % 4.7 % (0.0-3.0); HEMATOCRIT 25.5 % (42.0-52.0); HEMOGLOBIN 8.2 g/dl (13.5-17.5); IMMATURE GRANULOCYTE % 3.2 % (0-3.0); LYMPH % 25.6 % (24.0-44.0); MEAN CORPUSCULAR HEMOGLOBIN 31.2 pg (27.0-33.0); MEAN CORPUSCULAR HGB CONC 32.2 g/dl (32.0-36.5); MONO # 0.4 10^3/uL (0.0-0.8); MONO % 9.9 % (0.0-5.0); NEUTROPHILS # 2.3 10^3/uL (1.8-7.7); NEUTROPHILS % 55.9 % (36.0-66.0); PLATELET COUNT, AUTOMATED 136 10^3/uL (150-450); RED BLOOD COUNT 2.63 10^6/uL (4.30-6.10)
[2018-01-15 07:06] LABS: ALBUMIN 2.8 GM/DL (3.2-5.2); ALKALINE PHOSPHATASE 59 U/L (45-117); ALT/SGPT 36 U/L (12-78); ANION GAP 9 MEQ/L (8-16); AST/SGOT 30 U/L (7-37); BILIRUBIN,TOTAL 0.7 MG/DL (0.2-1.0); BLOOD UREA NITROGEN 42 MG/DL (7-18); CALCIUM LEVEL 8.7 MG/DL (8.8-10.2); CARBON DIOXIDE LEVEL 28 MEQ/L (21-32); CHLORIDE LEVEL 106 MEQ/L (98-107); CREATININE FOR GFR 3.71 MG/DL (0.70-1.30); GLOMERULAR FILTRATION RATE 17.1 (>42); GLUCOSE, FASTING 89 MG/DL (70-100); PHOSPHORUS LEVEL 3.7 MG/DL (2.5-4.9); SODIUM LEVEL 143 MEQ/L (136-145); TOTAL PROTEIN 5.9 GM/DL (6.4-8.2)
[2018-01-15] MEDS: HumaLOG INSULIN (NovoLOG) PER UNIT SC ×4 (07:30→21:00)
[2018-01-15] MEDS: MIRALAX *UNIT DOSE* 17GM PACKET PO (08:24)
[2018-01-15] MEDS: FOLIC ACID 1 MG TAB PO (08:27)
[2018-01-15] MEDS: THIAMINE 100 MG TAB PO (08:27)
[2018-01-15] MEDS: CALCITRIOL 0.25 MCG CAP (S0169) PO (08:27)
[2018-01-15] MEDS: DOCUSATE SODIUM 100 MG CAP PO (08:27)
[2018-01-15] MEDS: PANTOPRAZOLE 40MG TAB (PROTONIX) PO (08:27)
[2018-01-15] MEDS: (RENVELA) SEVELAMER **CARBONate** 800 MG TAB PO ×2 (08:27→12:24)
[2018-01-15] MEDS: CARVedilol 6.25 MG TAB PO ×2 (08:28→21:58)
[2018-01-15] MEDS ORDERED: DARBEPOETIN 300 MCG/0.6 ML *DIALYSIS* SYRINGE (J0882) IV (09:00)
[2018-01-15 11:40] LABS: BEDSIDE GLUCOSE 162 MG/DL (83-110)
[2018-01-15] MEDS: diphenhydrAMINE CREAM 30GM TOP (12:26)
[2018-01-15 16:39] LABS: BEDSIDE GLUCOSE 110 MG/DL (83-110)
[2018-01-15 20:12] LABS: BEDSIDE GLUCOSE 145 MG/DL (83-110)
[2018-01-15] MEDS: SENNA 8.6 MG TAB (SENOKOT) PO (21:00)
[2018-01-15] MEDS: PRAVASTATIN 10 MG TAB PO (21:57)
[2018-01-15] MEDS: TAMSULOSIN 0.4 MG CAP PO (21:58)
[2018-01-15] MEDS: LEVEMIR (INSULIN DETEMIR) 1 UNITS/0.01ML SC (21:58)
[2018-01-16] MEDS: HEPARIN SOD (PORCINE) 5000 UNITS/ML VIAL SQ ×3 (05:51→22:06)
[2018-01-16 06:11] LABS: BEDSIDE GLUCOSE 91 MG/DL (83-110)
[2018-01-16] MEDS: PANTOPRAZOLE 40MG TAB (PROTONIX) PO (08:11)
[2018-01-16] MEDS: CARVedilol 6.25 MG TAB PO ×2 (08:11→22:03)
[2018-01-16] MEDS: FOLIC ACID 1 MG TAB PO (08:11)
[2018-01-16] MEDS: HumaLOG INSULIN (NovoLOG) PER UNIT SC ×4 (08:11→21:00)
[2018-01-16] MEDS: MIRALAX *UNIT DOSE* 17GM PACKET PO (08:11)
[2018-01-16] MEDS: THIAMINE 100 MG TAB PO (08:11)
[2018-01-16] MEDS: DOCUSATE SODIUM 100 MG CAP PO (08:12)
[2018-01-16 12:22] LABS: BEDSIDE GLUCOSE 115 MG/DL (83-110)
[2018-01-16 16:41] LABS: BEDSIDE GLUCOSE 106 MG/DL (83-110)
[2018-01-16 20:57] LABS: BEDSIDE GLUCOSE 149 MG/DL (83-110)
[2018-01-16] MEDS: PRAVASTATIN 10 MG TAB PO (22:04)
[2018-01-16] MEDS: TAMSULOSIN 0.4 MG CAP PO (22:04)
[2018-01-16] MEDS: SENNA 8.6 MG TAB (SENOKOT) PO (22:04)
[2018-01-16] MEDS: LEVEMIR (INSULIN DETEMIR) 1 UNITS/0.01ML SC (22:06)
[2018-01-16] MEDS: diphenhydrAMINE CREAM 30GM TOP (22:07)
[2018-01-17 06:22] LABS: BEDSIDE GLUCOSE 91 MG/DL (83-110)
[2018-01-17] MEDS: HEPARIN SOD (PORCINE) 5000 UNITS/ML VIAL SQ ×3 (06:24→21:36)
[2018-01-17] MEDS: diphenhydrAMINE CREAM 30GM TOP (06:29)
[2018-01-17] MEDS: HumaLOG INSULIN (NovoLOG) PER UNIT SC ×2 (07:30→11:47)
[2018-01-17 07:50] LABS: BASO % 1.1 % (0.0-1.0); EOS # 0.3 10^3/uL (0.0-0.50); EOS % 6.7 % (0.0-3.0); HEMATOCRIT 28.5 % (42.0-52.0); HEMOGLOBIN 9.1 g/dl (13.5-17.5); IMMATURE GRANULOCYTE % 1.9 % (0-3.0); LYMPH % 25.4 % (24.0-44.0); MEAN CORPUSCULAR HEMOGLOBIN 31.5 pg (27.0-33.0); MEAN CORPUSCULAR HGB CONC 31.9 g/dl (32.0-36.5); MEAN CORPUSCULAR VOLUME 98.6 fl (80.0-96.0); MONO # 0.3 10^3/uL (0.0-0.8); MONO % 7.8 % (0.0-5.0); NEUTROPHILS # 2.1 10^3/uL (1.8-7.7); NEUTROPHILS % 57.1 % (36.0-66.0); PLATELET COUNT, AUTOMATED 154 10^3/uL (150-450); RED BLOOD COUNT 2.89 10^6/uL (4.30-6.10); RED CELL DISTRIBUTION WIDTH 15.6 % (11.5-14.5); WHITE BLOOD COUNT 3.7 10^3/uL (4.0-10.0)
[2018-01-17 08:14] LABS: ALBUMIN 3.1 GM/DL (3.2-5.2); ANION GAP 10 MEQ/L (8-16); BLOOD UREA NITROGEN 57 MG/DL (7-18); CALCIUM LEVEL 8.8 MG/DL (8.8-10.2); CARBON DIOXIDE LEVEL 23 MEQ/L (21-32); CHLORIDE LEVEL 108 MEQ/L (98-107); CREATININE FOR GFR 3.52 MG/DL (0.70-1.30); GLOMERULAR FILTRATION RATE 18.1 (>42); GLUCOSE, FASTING 98 MG/DL (70-100); PHOSPHORUS LEVEL 4.4 MG/DL (2.5-4.9); POTASSIUM SERUM 4.5 MEQ/L (3.5-5.1); SODIUM LEVEL 141 MEQ/L (136-145)
[2018-01-17] MEDS: THIAMINE 100 MG TAB PO (08:26)
[2018-01-17] MEDS: FOLIC ACID 1 MG TAB PO (08:26)
[2018-01-17] MEDS: MIRALAX *UNIT DOSE* 17GM PACKET PO (08:26)
[2018-01-17] MEDS: PANTOPRAZOLE 40MG TAB (PROTONIX) PO (08:26)
[2018-01-17] MEDS: CARVedilol 6.25 MG TAB PO ×2 (08:26→21:37)
[2018-01-17] MEDS: DOCUSATE SODIUM 100 MG CAP PO (08:27)
[2018-01-17 11:46] LABS: BEDSIDE GLUCOSE 73 MG/DL (83-110)
[2018-01-17 17:14] LABS: BEDSIDE GLUCOSE 188 MG/DL (83-110)
[2018-01-17 20:32] LABS: BEDSIDE GLUCOSE 136 MG/DL (83-110)
[2018-01-17] MEDS: SENNA 8.6 MG TAB (SENOKOT) PO (21:00)
[2018-01-17] MEDS: LEVEMIR (INSULIN DETEMIR) 1 UNITS/0.01ML SC (21:37)
[2018-01-17] MEDS: TAMSULOSIN 0.4 MG CAP PO (21:37)
[2018-01-17] MEDS: PRAVASTATIN 10 MG TAB PO (21:38)
[2018-01-18] MEDS: HEPARIN SOD (PORCINE) 5000 UNITS/ML VIAL SQ ×3 (05:49→21:36)
[2018-01-18 06:57] LABS: BEDSIDE GLUCOSE 116 MG/DL (83-110)
[2018-01-18] MEDS: CARVedilol 6.25 MG TAB PO ×2 (07:55→21:37)
[2018-01-18] MEDS: THIAMINE 100 MG TAB PO (07:55)
[2018-01-18] MEDS: FOLIC ACID 1 MG TAB PO (07:56)
[2018-01-18] MEDS: MIRALAX *UNIT DOSE* 17GM PACKET PO (07:56)
[2018-01-18] MEDS: DOCUSATE SODIUM 100 MG CAP PO (07:56)
[2018-01-18] MEDS: PANTOPRAZOLE 40MG TAB (PROTONIX) PO (07:56)
[2018-01-18] MEDS: EMLA CREAM 5GM (LIDOCAINE/PRILOCAINE) TOP (09:04)
[2018-01-18 16:37] LABS: BEDSIDE GLUCOSE 161 MG/DL (83-110)
[2018-01-18] MEDS: SENNA 8.6 MG TAB (SENOKOT) PO (21:00)
[2018-01-18] MEDS: LEVEMIR (INSULIN DETEMIR) 1 UNITS/0.01ML SC (21:36)
[2018-01-18] MEDS: TAMSULOSIN 0.4 MG CAP PO (21:37)
[2018-01-18] MEDS: PRAVASTATIN 10 MG TAB PO (21:37)
[2018-01-19 06:36] LABS: BEDSIDE GLUCOSE 112 MG/DL (83-110)
[2018-01-19] MEDS: HEPARIN SOD (PORCINE) 5000 UNITS/ML VIAL SQ ×3 (06:36→21:44)
[2018-01-19] MEDS: THIAMINE 100 MG TAB PO (09:29)
[2018-01-19] MEDS: MIRALAX *UNIT DOSE* 17GM PACKET PO (09:29)
[2018-01-19] MEDS: CARVedilol 6.25 MG TAB PO ×2 (09:29→21:44)
[2018-01-19] MEDS: DOCUSATE SODIUM 100 MG CAP PO (09:29)
[2018-01-19] MEDS: FOLIC ACID 1 MG TAB PO (09:29)
[2018-01-19] MEDS: PANTOPRAZOLE 40MG TAB (PROTONIX) PO (09:29)
[2018-01-19 16:27] LABS: BEDSIDE GLUCOSE 159 MG/DL (83-110)
[2018-01-19] MEDS: LEVEMIR (INSULIN DETEMIR) 1 UNITS/0.01ML SC (21:44)
[2018-01-19] MEDS: TAMSULOSIN 0.4 MG CAP PO (21:44)
[2018-01-19] MEDS: PRAVASTATIN 10 MG TAB PO (21:44)
[2018-01-19] MEDS: SENNA 8.6 MG TAB (SENOKOT) PO (21:46)
[2018-01-20] MEDS: HEPARIN SOD (PORCINE) 5000 UNITS/ML VIAL SQ ×3 (05:47→20:49)
[2018-01-20 06:37] LABS: BEDSIDE GLUCOSE 119 MG/DL (83-110)
[2018-01-20] MEDS: FOLIC ACID 1 MG TAB PO (08:39)
[2018-01-20] MEDS: CARVedilol 6.25 MG TAB PO ×2 (08:39→20:49)
[2018-01-20] MEDS: PANTOPRAZOLE 40MG TAB (PROTONIX) PO (08:39)
[2018-01-20] MEDS: VITAMIN D 50,000 UNITS CAPSULE (ERGOCALCIFEROL 1.25MG) PO (08:39)
[2018-01-20] MEDS: DOCUSATE SODIUM 100 MG CAP PO (08:39)
[2018-01-20] MEDS: THIAMINE 100 MG TAB PO (08:39)
[2018-01-20] MEDS: MIRALAX *UNIT DOSE* 17GM PACKET PO (08:40)
[2018-01-20 13:09] LABS: BASO % 1.1 % (0.0-1.0); EOS # 0.2 10^3/uL (0.0-0.50); EOS % 5.8 % (0.0-3.0); HEMATOCRIT 27.7 % (42.0-52.0); HEMOGLOBIN 8.8 g/dl (13.5-17.5); IMMATURE GRANULOCYTE % 1.1 % (0-3.0); LYMPH % 35.9 % (24.0-44.0); MEAN CORPUSCULAR HEMOGLOBIN 31.8 pg (27.0-33.0); MEAN CORPUSCULAR HGB CONC 31.8 g/dl (32.0-36.5); MONO # 0.4 10^3/uL (0.0-0.8); NEUTROPHILS # 1.2 10^3/uL (1.8-7.7); NEUTROPHILS % 43.1 % (36.0-66.0); RED BLOOD COUNT 2.77 10^6/uL (4.30-6.10); RED CELL DISTRIBUTION WIDTH 16.1 % (11.5-14.5); WHITE BLOOD COUNT 2.8 10^3/uL (4.0-10.0)
[2018-01-20 13:37] LABS: ALBUMIN 3.2 GM/DL (3.2-5.2); ANION GAP 10 MEQ/L (8-16); BLOOD UREA NITROGEN 49 MG/DL (7-18); CALCIUM LEVEL 8.1 MG/DL (8.8-10.2); CARBON DIOXIDE LEVEL 23 MEQ/L (21-32); CHLORIDE LEVEL 110 MEQ/L (98-107); CREATININE FOR GFR 3.47 MG/DL (0.70-1.30); GLOMERULAR FILTRATION RATE 18.5 (>42); GLUCOSE, FASTING 118 MG/DL (70-100); POTASSIUM SERUM 4.1 MEQ/L (3.5-5.1); SODIUM LEVEL 143 MEQ/L (136-145)
[2018-01-20 13:41] LABS: IMMATURE PLATELET FRACTION % 1.9 % (0.0-10.9); PLATELET COUNT, AUTOMATED 87 10^3/uL (150-450)
[2018-01-20 16:34] LABS: BEDSIDE GLUCOSE 186 MG/DL (83-110)
[2018-01-20] MEDS: PRAVASTATIN 10 MG TAB PO (20:48)
[2018-01-20] MEDS: TAMSULOSIN 0.4 MG CAP PO (20:48)
[2018-01-20] MEDS: LEVEMIR (INSULIN DETEMIR) 1 UNITS/0.01ML SC (20:50)
[2018-01-20] MEDS: SENNA 8.6 MG TAB (SENOKOT) PO (20:50)
[2018-01-20] MEDS: diphenhydrAMINE CREAM 30GM TOP (20:53)
[2018-01-21 05:36] LABS: BEDSIDE GLUCOSE 125 MG/DL (83-110)
[2018-01-21] MEDS: HEPARIN SOD (PORCINE) 5000 UNITS/ML VIAL SQ ×3 (06:05→22:04)
[2018-01-21 07:43] LABS: HEMATOCRIT 27.7 % (42.0-52.0); HEMOGLOBIN 8.7 g/dl (13.5-17.5); MEAN CORPUSCULAR HEMOGLOBIN 31.8 pg (27.0-33.0); MEAN CORPUSCULAR HGB CONC 31.4 g/dl (32.0-36.5); MEAN CORPUSCULAR VOLUME 101.1 fl (80.0-96.0); RED BLOOD COUNT 2.74 10^6/uL (4.30-6.10); RED CELL DISTRIBUTION WIDTH 16.6 % (11.5-14.5); RETICULOCYTE # 110.7 10^9/L (17-77); WHITE BLOOD COUNT 3.2 10^3/uL (4.0-10.0)
[2018-01-21 07:44] LABS: PLATELET COUNT, AUTOMATED 64 10^3/uL (150-450)
[2018-01-21 07:47] LABS: REASON FOR REVIEW RBC MORPHOLOGY; SLIDE REVIEW Report; SOURCE PERIPHERAL SMEAR
[2018-01-21] MEDS: PANTOPRAZOLE 40MG TAB (PROTONIX) PO (08:58)
[2018-01-21] MEDS: THIAMINE 100 MG TAB PO (08:58)
[2018-01-21] MEDS: DOCUSATE SODIUM 100 MG CAP PO (08:58)
[2018-01-21] MEDS: FOLIC ACID 1 MG TAB PO (08:58)
[2018-01-21] MEDS: MIRALAX *UNIT DOSE* 17GM PACKET PO (08:59)
[2018-01-21] MEDS: CARVedilol 6.25 MG TAB PO ×2 (08:59→20:48)
[2018-01-21 11:36] LABS: BEDSIDE GLUCOSE 134 MG/DL (83-110)
[2018-01-21 16:54] LABS: BEDSIDE GLUCOSE 161 MG/DL (83-110)
[2018-01-21 20:22] LABS: BEDSIDE GLUCOSE 277 MG/DL (83-110)
[2018-01-21] MEDS: PRAVASTATIN 10 MG TAB PO (20:47)
[2018-01-21] MEDS: TAMSULOSIN 0.4 MG CAP PO (20:48)
[2018-01-21] MEDS: LEVEMIR (INSULIN DETEMIR) 1 UNITS/0.01ML SC (20:48)
[2018-01-21] MEDS: SENNA 8.6 MG TAB (SENOKOT) PO (20:53)
[2018-01-22] MEDS: HEPARIN SOD (PORCINE) 5000 UNITS/ML VIAL SQ ×3 (05:13→21:15)
[2018-01-22 06:37] LABS: BEDSIDE GLUCOSE 118 MG/DL (83-110)
[2018-01-22] MEDS: MIRALAX *UNIT DOSE* 17GM PACKET PO (08:50)
[2018-01-22] MEDS: THIAMINE 100 MG TAB PO (08:51)
[2018-01-22] MEDS: DOCUSATE SODIUM 100 MG CAP PO (08:51)
[2018-01-22] MEDS: CARVedilol 6.25 MG TAB PO ×2 (08:51→21:14)
[2018-01-22] MEDS: PANTOPRAZOLE 40MG TAB (PROTONIX) PO (08:51)
[2018-01-22] MEDS: FOLIC ACID 1 MG TAB PO (08:51)
[2018-01-22 09:27] LABS: HEMATOCRIT 30.1 % (42.0-52.0); HEMOGLOBIN 9.4 g/dl (13.5-17.5); MEAN CORPUSCULAR HEMOGLOBIN 31.8 pg (27.0-33.0); MEAN CORPUSCULAR HGB CONC 31.2 g/dl (32.0-36.5); MEAN CORPUSCULAR VOLUME 101.7 fl (80.0-96.0); RED BLOOD COUNT 2.96 10^6/uL (4.30-6.10); RED CELL DISTRIBUTION WIDTH 16.8 % (11.5-14.5)
[2018-01-22 09:38] LABS: IMMATURE PLATELET FRACTION % 3.5 % (0.0-10.9); PLATELET COUNT, AUTOMATED 76 10^3/uL (150-450)
[2018-01-22 09:45] LABS: ALBUMIN 3.2 GM/DL (3.2-5.2); ANION GAP 13 MEQ/L (8-16); BLOOD UREA NITROGEN 48 MG/DL (7-18); CALCIUM LEVEL 8.4 MG/DL (8.8-10.2); CARBON DIOXIDE LEVEL 24 MEQ/L (21-32); CHLORIDE LEVEL 105 MEQ/L (98-107); CREATININE FOR GFR 3.89 MG/DL (0.70-1.30); GLOMERULAR FILTRATION RATE 16.2 (>42); GLUCOSE, FASTING 168 MG/DL (70-100); PHOSPHORUS LEVEL 3.9 MG/DL (2.5-4.9); SODIUM LEVEL 142 MEQ/L (136-145)
[2018-01-22] MEDS: EMLA CREAM 5GM (LIDOCAINE/PRILOCAINE) TOP (12:29)
[2018-01-22 16:19] LABS: BEDSIDE GLUCOSE 163 MG/DL (83-110)
[2018-01-22] MEDS: SENNA 8.6 MG TAB (SENOKOT) PO (21:00)
[2018-01-22] MEDS: PRAVASTATIN 10 MG TAB PO (21:14)
[2018-01-22] MEDS: TAMSULOSIN 0.4 MG CAP PO (21:14)
[2018-01-22] MEDS: LEVEMIR (INSULIN DETEMIR) 1 UNITS/0.01ML SC (21:15)
[2018-01-23 06:05] LABS: BEDSIDE GLUCOSE 119 MG/DL (83-110)
[2018-01-23] MEDS: HEPARIN SOD (PORCINE) 5000 UNITS/ML VIAL SQ ×3 (06:05→20:54)
[2018-01-23 06:30] LABS: BEDSIDE GLUCOSE 117 MG/DL (83-110)
[2018-01-23] MEDS: MIRALAX *UNIT DOSE* 17GM PACKET PO (08:11)
[2018-01-23] MEDS: DOCUSATE SODIUM 100 MG CAP PO (08:11)
[2018-01-23] MEDS: CARVedilol 6.25 MG TAB PO ×2 (08:12→20:55)
[2018-01-23] MEDS: FOLIC ACID 1 MG TAB PO (08:12)
[2018-01-23] MEDS: PANTOPRAZOLE 40MG TAB (PROTONIX) PO (08:12)
[2018-01-23] MEDS: THIAMINE 100 MG TAB PO (08:12)
[2018-01-23 16:19] LABS: BEDSIDE GLUCOSE 247 MG/DL (83-110)
[2018-01-23 20:32] LABS: BEDSIDE GLUCOSE 200 MG/DL (83-110)
[2018-01-23] MEDS: SENNA 8.6 MG TAB (SENOKOT) PO (20:45)
[2018-01-23] MEDS: LEVEMIR (INSULIN DETEMIR) 1 UNITS/0.01ML SC (20:55)
[2018-01-23] MEDS: TAMSULOSIN 0.4 MG CAP PO (20:55)
[2018-01-23] MEDS: PRAVASTATIN 10 MG TAB PO (20:56)
[2018-01-23] MEDS: diphenhydrAMINE CREAM 30GM TOP (22:50)
[2018-01-24] MEDS: HEPARIN SOD (PORCINE) 5000 UNITS/ML VIAL SQ (06:00)
[2018-01-24 06:46] LABS: BEDSIDE GLUCOSE 134 MG/DL (83-110)
[2018-01-24] MEDS: MIRALAX *UNIT DOSE* 17GM PACKET PO (09:00)
[2018-01-24] MEDS: DOCUSATE SODIUM 100 MG CAP PO (09:00)
[2018-01-24] MEDS: FOLIC ACID 1 MG TAB PO (10:09)
[2018-01-24] MEDS: THIAMINE 100 MG TAB PO (10:09)
[2018-01-24] MEDS: PANTOPRAZOLE 40MG TAB (PROTONIX) PO (10:09)
[2018-01-24] MEDS: CARVedilol 6.25 MG TAB PO (10:09)
== END 2018-01-24 12:25 | DRG 638 ==
LOC: M PM&R 01-07 09:54
PROVIDERS: Physical Medicine & Rehabilitation
PROC: 5A1D70Z Performance of Urinary Filtration, Intermittent, Less than 6 Hours Per Day (ICD-10-PCS; principal; 2018-01-11)
DX: E11.618 Type 2 diabetes mellitus with other diabetic arthropathy (principal); I50.32 Chronic diastolic (congestive) heart failure; I13.2 Hypertensive heart and chronic kidney disease with heart failure and with stage 5 chronic kidney disease, or end stage renal disease; T83.518A Infection and inflammatory reaction due to other urinary catheter, initial encounter; E87.0 Hyperosmolality and hypernatremia; A52.16 Charcot's arthropathy (tabetic); N18.6 End stage renal disease; N17.9 Acute kidney failure, unspecified; Z89.512 Acquired absence of left leg below knee; K21.9 Gastro-esophageal reflux disease without esophagitis; N40.0 Benign prostatic hyperplasia without lower urinary tract symptoms; Z79.899 Other long term (current) drug therapy; D69.6 Thrombocytopenia, unspecified; D63.1 Anemia in chronic kidney disease; E78.5 Hyperlipidemia, unspecified; E87.5 Hyperkalemia; R33.9 Retention of urine, unspecified; Z88.0 Allergy status to penicillin; Z88.1 Allergy status to other antibiotic agents; Z88.8 Allergy status to other drugs, medicaments and biological substances; N25.81 Secondary hyperparathyroidism of renal origin; L27.0 Generalized skin eruption due to drugs and medicaments taken internally; K59.00 Constipation, unspecified; Z99.2 Dependence on renal dialysis; Y82.8 Other medical devices associated with adverse incidents

== ENCOUNTER → 2018-02-09 | Outpatient (REF) | payer MEDICARE, MEDICAID ==
[2018-02-09 09:45] LABS: HEMATOCRIT 32.4 % (42.0-52.0); HEMOGLOBIN 10.4 g/dl (13.5-17.5); MEAN CORPUSCULAR HEMOGLOBIN 32.6 pg (27.0-33.0); MEAN CORPUSCULAR HGB CONC 32.1 g/dl (32.0-36.5); MEAN CORPUSCULAR VOLUME 101.6 fl (80.0-96.0); RED BLOOD COUNT 3.19 10^6/uL (4.30-6.10); RED CELL DISTRIBUTION WIDTH 15.5 % (11.5-14.5); WHITE BLOOD COUNT 2.9 10^3/uL (4.0-10.0)
[2018-02-09 09:47] LABS: PLATELET COUNT, AUTOMATED 61 10^3/uL (150-450)
[2018-02-09 09:48] LABS: IMMATURE PLATELET FRACTION % 4.3 % (0.0-10.9)
== END ==
DX: N18.9 Chronic kidney disease, unspecified (principal); Z99.2 Dependence on renal dialysis; I12.9 Hypertensive chronic kidney disease with stage 1 through stage 4 chronic kidney disease, or unspecified chronic kidney disease; E11.9 Type 2 diabetes mellitus without complications
CPT/HCPCS: 85049

== ENCOUNTER → 2018-03-15 | Outpatient (REF) | payer MEDICARE, MEDICAID ==
[2018-03-15 10:08] LABS: HEMATOCRIT 35.9 % (42.0-52.0); HEMOGLOBIN 11.4 g/dl (13.5-17.5); MEAN CORPUSCULAR HEMOGLOBIN 31.3 pg (27.0-33.0); MEAN CORPUSCULAR HGB CONC 31.8 g/dl (32.0-36.5); MEAN CORPUSCULAR VOLUME 98.6 fl (80.0-96.0); RED BLOOD COUNT 3.64 10^6/uL (4.30-6.10); RED CELL DISTRIBUTION WIDTH 13.9 % (11.5-14.5); WHITE BLOOD COUNT 2.4 10^3/uL (4.0-10.0)
[2018-03-15 10:15] LABS: IMMATURE PLATELET FRACTION % 4.1 % (0.0-10.9); PLATELET COUNT, AUTOMATED 84 10^3/uL (150-450); PLATELET F 77
== END ==
DX: E11.9 Type 2 diabetes mellitus without complications (principal)
CPT/HCPCS: 85049

== ENCOUNTER → 2018-04-11 | Outpatient (CLI) | payer MEDICARE, MEDICAID | LOC: M PT 11:58 | DX: Z89.512 Acquired absence of left leg below knee (principal) | CPT/HCPCS: 97163 ==

== ENCOUNTER → 2018-04-13 | Outpatient (REF) | payer MEDICARE, MEDICAID ==
[2018-04-13 09:31] LABS: HEMATOCRIT 39.7 % (42.0-52.0); HEMOGLOBIN 12.7 g/dl (13.5-17.5); MEAN CORPUSCULAR HEMOGLOBIN 31.1 pg (27.0-33.0); MEAN CORPUSCULAR VOLUME 97.3 fl (80.0-96.0); RED BLOOD COUNT 4.08 10^6/uL (4.30-6.10); RED CELL DISTRIBUTION WIDTH 14.2 % (11.5-14.5); WHITE BLOOD COUNT 2.9 10^3/uL (4.0-10.0)
[2018-04-13 09:35] LABS: IMMATURE PLATELET FRACTION % 3.9 % (0.0-10.9); PLATELET COUNT, AUTOMATED 72 10^3/uL (150-450)
== END ==
DX: D64.9 Anemia, unspecified (principal)
CPT/HCPCS: 85049

== ENCOUNTER → 2018-05-18 | Outpatient (REF) | payer MEDICARE, MEDICAID ==
[~2018-05-18] MED LIST changes: +/AMLO25TA OR; +/INSUNPH SC; +/MOM400 OR; +/MOM400 PO; +/PANT40TA PO; -ACETAMINOPHEN TAB 650MG DOSE (2X325MG) PO; +ARANESP IV; +AZIT-12 PO; +BACT2CRE TOP; +BISA10SU PR; -BISACODYL 10 MG SUPP PR; +CALC1CAP31 PO; +CALC25CA OR; +CARV6.25 PO; +CEFE1INJ IV; +CINA30TA PO; +COLA100C5 PO; -DEXTROSE 50% 50 ML SYRINGE IV; +DIPHCR TOP; +ERYTOIN8 TOP; +EUCECRE3 TOP; +FEBU40TA PO; -FLEET ENEMA PR; -FLEET OIL RETENTION ENEMA PR; +FLEETOIL PR; +FLOM0.4C39 PO; +FOLI1TAB11 PO; +FOLI1TAB86 PO; +FRUICHW PO; +FURO80TA2 PO; +Fosfomycin Tromethamine PO; -GLUCAGON FOR INJ 1 MG VIAL (J1610) SC; -GLUCOSE 4 GM CHEW TABLET PO; +HEPA50VL SQ; +HYDR-3713 PO; +INSUDET SC; +INSUH10VL SC; +INSULANT SC; +KEFL500C17 PO; +KETO5OPD OS; +LABE10TAB PO; +LABE20TAB OR; +LAC-LOT2 TOP; -LACTIC ACID 12% LOTION 225 GM BTL TOP; +LANTINJ4 SC; +LASI20TA3 PO; +LASI40TA PO; +LIDO2.5C15 TOP; +MACR100C43 PO; +MILK120011 PO; +MOISTURIN CREAM EXT; -MOM 30ML SUSPENSION UDC PO; +MULTCAP PO; +NO HISTORICAL MEDS; +NORMODYNE OR; +NOVOINJ3 SC; +NYST1POW9 TOP; -ONDANSETRON 4 MG TAB (S0181) PO; -ONDANSETRON 4MG/2ML VIAL (J2405) IM; +OXYCO5TA PO; +PEG1POW PO; +POTA10TA PO; +PRAV10TA3 PO; +PRAV10TA4 PO; +PRED10TA PO; +PRED1SUS2 OD; +PROC1INJ5 SC; +PROC20004 SC; +PROT1TAB2 PO; +REFRSOL OU; +RENV2TAB PO; +SENN18TA PO; +THIA100T7 PO; +TOBRSUS41 OS; +TYLE325T5 PO; +VENO20IN IV; +VITA100T2 PO; +VITA1CAP25 PO; +ZOFR4TAB14 PO; +ZOFR4TAB16 PO; -oxyCODONE 5MG TAB PO
[2018-05-18 12:53] LABS: HEMATOCRIT 35.1 % (42.0-52.0); HEMOGLOBIN 11.6 g/dl (13.5-17.5); MEAN CORPUSCULAR HEMOGLOBIN 30.5 pg (27.0-33.0); MEAN CORPUSCULAR VOLUME 92.4 fl (80.0-96.0); WHITE BLOOD COUNT 3.2 10^3/uL (4.0-10.0)
[2018-05-18 12:59] LABS: PLATELET COUNT, AUTOMATED 71 10^3/uL (150-450)
== END ==
LOC: EEVIPCON
PROVIDERS: ATTEND Internal Medicine Nephrology
DX: N18.9 Chronic kidney disease, unspecified (principal); E11.9 Type 2 diabetes mellitus without complications

== ENCOUNTER 2018-08-24 14:43 | Emergency (ER) | payer MEDICARE, MEDICAID ==
[~2018-08-24] VITALS: Ht 170.2 cm; Wt 80.9 kg
[~2018-08-24 14:43] MED LIST changes: -/AMLO25TA OR; -/INSUNPH SC; -/MOM400 OR; -/MOM400 PO; -/PANT40TA PO; +CALC1CAP31 OR; -CALC25CA OR; -CINA30TA PO; +CINA30TA4 PO; +HEPA1INJ23 SQ; -HEPA50VL SQ; +KETO0.5S2 OS; -KETO5OPD OS; +LABE200T13 OR; -LABE20TAB OR; +MILK10SU OR; +MILK10SU PO; +NORV2TAB OR; +NOVO1INJ3 SC; +PRED-351 PO; -PRED10TA PO
[2018-08-24] MEDS ORDERED: MIDO5TA (15:11)
[2018-08-24] MEDS ORDERED: THIA100T14 (15:11)
[2018-08-24] MEDS ORDERED: GNPLIQ18 PO (15:11)
[2018-08-24] MEDS ORDERED: CARV3.12 (15:11)
[2018-08-24] MEDS ORDERED: CARV3.12 PO (15:11)
[2018-08-24] MEDS ORDERED: LANTINJ4 SC (15:11)
[2018-08-24] MEDS ORDERED: DULC5TAB PO (15:11)
--- NOTE | 2018-08-24 16:47 | REP ---
Left femur four views: There is demineralization. I suspect a fracture of the femoral condyles on one-view. Recommend left knee series for further evaluation. There is no fracture or dislocation of the hip. Electronically Signed by Beck Bocanegra MD 08/24/2018 04:38 P
--- NOTE | 2018-08-24 16:48 | REP ---
Left knee four views: There is demineralization. No femoral condyle fracture is identified. However, there is a compression fracture of the tibial plateau lateral compartment. There is hemarthrosis. Electronically Signed by Beck Bocanegra MD 08/24/2018 04:39 P
--- NOTE | 2018-08-24 17:45 | REP ---
CT of the left knee: Axial images are acquired helical scanning and a reformatted in sagittal and coronal projections. There is demineralization. No fracture of the femoral condyles is identified. However, there is a comminuted depressed compression fracture of the tibial plateau involving the tibial spines and lateral compartment. The major fracture fragments posteriorly. There is approximately 5 mm step off of the major fracture fragment. There is hemarthrosis. Impression: Comminuted depressed compression fracture of the tibial plateau. Lateral compartment. Hemarthrosis. There is a fat fluid level within in the hemarthrosis. Electronically Signed by Beck Bocanegra MD 08/24/2018 05:37 P
[2018-08-24 20:45] VITALS: BP 174/93
--- NOTE | 2018-08-25 13:57 | ER ---
DATE OF CONSULTATION: 08/24/2018 CHIEF COMPLAINT: Left leg pain. HISTORY OF PRESENT ILLNESS: Guru Dinero is a 78-year-old male who is a patient of mine status post [id number] (BKA) last December. Patient states that he was walking with his prosthesis where the prosthesis fell off. Unfortunately, he fell to the ground. He had significant pain in his left knee. He was brought to the emergency room and found to have a comminuted fracture of the tibial plateau. PAST MEDICAL HISTORY: Significant of diabetes, end-stage renal disease on dialysis. PAST SURGICAL HISTORY: BKA in December of 2016. PHYSICAL EXAMINATION: GENERAL: Well-appearing, alert and oriented, in no acute distress. PULMONARY: Regular and nonlabored breathing. CARDIOVASCULAR: Regular rate and rhythm. ABDOMEN: Soft, nontender. MUSCULOSKELETAL: In the left lower extremity, the skin is intact over the stump. There is no significant swelling. There is tenderness mainly about the knee. Patient is most comfortable with his knee held in flexion and has difficulty extending it. IMAGING: CT and x-rays of the knee and femur are reviewed. There is a comminuted fracture of the tibial plateau with a depressed posteromedial segment. IMPRESSION: Left tibial plateau fracture in the setting of the [id number]. PLAN: Discussion was held with the patient. Unfortunately, this is a difficult situation given that he really does not have much tibia in regards to his amputation. Ideally, this would be a fracture that we would fix. However, I do not think that this is in his best interest as I think he could have difficulty healing an incision in his stump and also there is not much bone to work with in terms of getting adequate fixation with a plate for the fracture. I will talk to Vlad Last, his pilot plant research technician and try to find a brace that is more suitable for him. We will also follow him in clinic. He will unfortunately not be able to use his prosthesis until this fracture has healed somewhere between the 6 and 12 week angelito. All the patient's questions are answered and he is in agreement with this plan.
== END 2018-08-24 20:51 | disposition home or self-care (01) ==
LOC: EDBD 14:43 → M ED 14:43
DX: S82.142A Displaced bicondylar fracture of left tibia, initial encounter for closed fracture (principal); M25.062 Hemarthrosis, left knee; W19.XXXA Unspecified fall, initial encounter; Y92.9 Unspecified place or not applicable; Y93.01 Activity, walking, marching and hiking; Y99.9 Unspecified external cause status; E11.9 Type 2 diabetes mellitus without complications; I10 Essential (primary) hypertension; N18.6 End stage renal disease; Z99.2 Dependence on renal dialysis; M86.9 Osteomyelitis, unspecified; Z72.0 Tobacco use; Z79.4 Long term (current) use of insulin; Z79.899 Other long term (current) drug therapy; Z88.0 Allergy status to penicillin; Z88.1 Allergy status to other antibiotic agents; Z88.8 Allergy status to other drugs, medicaments and biological substances

== ENCOUNTER → 2019-07-03 | Outpatient (REF) | payer MEDICARE, MEDICAID ==
[~2019-07-03] MED LIST changes: +CARV3.12; +CARV3.12 PO; +DULC5TAB PO; -FEBU40TA PO; +FEBU40TA4 PO; +GNPLIQ18 PO; +MIDO5TA; +THIA100T14
[2019-07-03 19:43] LABS: APPEARANCE, URINE CLEAR (CLEAR); BACTERIA, URINE AUTO NEGATIVE (NEGATIVE); BILIRUBIN, URINE AUTO NEGATIVE (NEGATIVE); BLOOD, URINE BLOOD NEGATIVE (NEGATIVE); COLOR, URINE YELLOW (YELLOW); GLUCOSE, URINE (UA) AUTO NEGATIVE (NEGATIVE); KETONE, URINE AUTO NEGATIVE (NEGATIVE); LEUKOCYTE ESTERASE, URINE AUTO NEGATIVE (NEGATIVE); MUCUS, URINE SMALL (NEGATIVE); NITRITE, URINE AUTO NEGATIVE (NEGATIVE); PROTEIN, URINE AUTO 2+ mg/dL (NEGATIVE); RBC, URINE AUTO 1 /HPF (0-3); SPECIFIC GRAVITY URINE AUTO 1.011 (1.002-1.035); SQUAMOUS EPITHELIAL CELL UR AU 0 /HPF (0-6); UROBILINOGEN, URINE AUTO 0.2 mg/dL (0.0-2.0); WBC, URINE AUTO 1 /HPF (0-3)
== END ==
PROVIDERS: ATTEND Nurse Practitioner Adult Health
DX: M54.6 Pain in thoracic spine (principal); R39.11 Hesitancy of micturition

== ENCOUNTER → 2019-07-10 | Outpatient (CLI) | payer MEDICARE, MEDICAID ==
--- NOTE | 2019-07-10 15:35 | REP ---
THORACIC SPINE: AP and lateral views of thoracic spine are performed. There is no compression fracture or malalignment. There is normal thoracic kyphosis. There is mild diffuse spurring. There is mild disc space narrowing and subchondral sclerosis at virtually all levels. Posterior elements are intact. IMPRESSION: Mild diffuse degenerative changes. No compression fracture. Electronically Signed by Beck Lira MD 07/10/2019 05:59 P
--- NOTE | 2019-07-10 15:40 | REP ---
LUMBOSACRAL SPINE: Five views of the lumbosacral spine are performed. There is mild compression deformity of L2 vertebral body of indeterminate age. Otherwise no compression fracture is seen. There is mild anterior listhesis of L3 on L4 which appears to be due to posterior facet arthropathy. There is also mild anterior listhesis of L4 and L5 due to posterior facet arthropathy. There is mild disc space narrowing at L1-2. There is moderate disc space narrowing of subchondral sclerosis at L3-4. There is mild narrowing at L4-5. There is sclerosis and spurring at the facets of L4-5 and L5-S1. Posterior elements are intact. There is mild curvature toward the right. Diffuse vascular calcifications are present. IMPRESSION: Mild compression of L2 on indeterminate age. This could represent an acute finding. It is new when compared to the prior CT abdomen and pelvis 07/23/2016. Diffuse degenerative changes as above. Electronically Signed by Beck Lira MD 07/10/2019 06:00 P
--- NOTE | 2019-07-10 15:44 | REP ---
KUB ABDOMEN AND PELVIS: KUB film of abdomen and pelvis performed. There is moderate fecal material in the upper colon. No dilated small bowel loops are seen. Scattered vascular calcifications are present. There are degenerative changes of the spine. IMPRESSION: Moderate feces in the proximal colon. No evidence of small bowel obstruction. Degenerative changes of the spine. Electronically Signed by Beck Lira MD 07/11/2019 07:46 P
== END ==
LOC: M RAD 13:22
PROVIDERS: ATTEND Nurse Practitioner Adult Health
DX: R10.30 Lower abdominal pain, unspecified (principal); M51.36 Other intervertebral disc degeneration, lumbar region; K59.00 Constipation, unspecified

== ENCOUNTER → 2019-11-29 | Outpatient (CLI) | payer MEDICARE, MEDICAID ==
[~2019-11-29] MED LIST changes: +CEFD1CAP8 PO; +COSO1SOL3 OP; +OXYC-517 PO; +TAMS1CAP17 PO
--- NOTE | 2019-11-29 09:27 | REP ---
Clinical: History of pancytopenia. Technique: Real time palmer scale and color evaluation using curved array transducer. Findings: Evaluation is markedly limited due to technical factors and extensive bowel gas. Liver appears heterogeneous. The pancreas is incompletely evaluated due to interposed bowel gas but visualized portions appear relatively normal. The spleen measures 15.0 x 15.5 x 6.8 cm (splenic index 1581), but without obvious focal splenic lesion identified. The bilateral kidneys are normal in reniform shape without hydronephrosis. Right kidney measures 8.9 x 4.0 x 5.8 cm. Left kidney measures 10.2 x 4.7 x 4.8 cm. Visualized portions of the abdominal aorta appear normal and measure up to 2.1 cm maximal diameter. No ascites noted in the abdomen. Impression: 1. Limited evaluation. 2. Splenomegaly without obvious focal splenic lesion identified. Electronically Signed by Nolan Fry MD 11/29/2019 09:18 A
== END ==
LOC: M RAD 08:13
PROVIDERS: ATTEND Internal Medicine Hematology & Oncology
DX: D61.818 Other pancytopenia (principal)

== ENCOUNTER → 2020-03-06 | Outpatient (CLI) | payer MEDICARE, MEDICAID ==
--- NOTE | 2020-03-06 14:13 | REP ---
INDICATION: FALL FROM NON-MOVING WHEELCHAIR, PAIN IN LEFT LEG. COMPARISON: Comparison radiographs left femur 08/24/2018.. TECHNIQUE: Four views. FINDINGS: Four views of the left femur demonstrate diffuse osteopenia. Vascular calcification is noted. There are some osteoarthritic changes at the knee although these are not optimally seen. They appear to be unchanged.. No fracture or subluxation is seen. No opaque foreign body noted. IMPRESSION: Diffuse osteopenia and vascular calcification. A osteoarthritis at the knee. No fracture visible. The knee findings are less than optimally displayed. Consider knee radiographs.. <Electronically signed by Carlos Miller > 03/06/20 [id number]
== END ==
LOC: M RAD 10:55
PROVIDERS: ATTEND Nurse Practitioner Adult Health
DX: M79.605 Pain in left leg (principal); W05.0XXA Fall from non-moving wheelchair, initial encounter; M85.80 Other specified disorders of bone density and structure, unspecified site; M17.12 Unilateral primary osteoarthritis, left knee

== ENCOUNTER → 2020-03-11 | Outpatient (CLI) | payer MEDICARE, MEDICAID ==
--- NOTE | 2020-03-11 10:03 | REP ---
INDICATION: PAIN IN LEFT KNEE. COMPARISON: Left femur 03/06/2020, left knee 08/24/2018 TECHNIQUE: Four views of the knee provided FINDINGS: The four views were obtained and show evidence for a prior below-knee amputation. There are vascular calcifications throughout the femoral and popliteal artery and smaller branches. There are advanced degenerative changes at the knee and demineralization, likely a disuse osteoporosis. No definite suprapatellar effusion. Previous lateral tibial plateau fracture appears to have healed with significant depression of the plateau absence of joint effusion noted consistent with no acute fracture. IMPRESSION: 1. Status post left below-knee amputation remotely with evidence of chronic disuse osteoporosis and heavy vascular calcification in the femoral artery and to lesser extent popliteal artery and branches. 2. Prior lateral tibial plateau depression fracture as noted on the 08/24/2018 knee x-ray appears grossly healed but with depression of the plateau. 3. Degenerative changes at the knee. No effusion. <Electronically signed by Wiliam Sahu > 03/11/20 [id number]
== END ==
LOC: M RAD 08:37
PROVIDERS: ATTEND Nurse Practitioner Adult Health
DX: M25.562 Pain in left knee (principal)

== ENCOUNTER → 2020-04-19 | Outpatient (REF) | payer MEDICARE, MEDICAID ==
[~2020-04-19] MED LIST changes: +LABE100T4 PO; -LABE10TAB PO
== END ==
PROVIDERS: ATTEND Internal Medicine
DX: Z20.828 Contact with and (suspected) exposure to other viral communicable diseases (principal)

== ENCOUNTER → 2020-04-24 | Outpatient (REF) | payer MEDICARE, MEDICAID ==
[2020-04-25 09:23] LABS: INFLUENZA A AMPLIFICATION NEGATIVE (NEGATIVE); INFLUENZA B AMPLIFICATION NEGATIVE (NEGATIVE)
== END ==
PROVIDERS: ATTEND Internal Medicine
DX: Z20.828 Contact with and (suspected) exposure to other viral communicable diseases (principal)
CPT/HCPCS: 87502; U0003

== ENCOUNTER → 2020-04-29 | Outpatient (REF) | payer MEDICARE, MEDICAID | PROVIDERS: ATTEND Internal Medicine | DX: Z20.828 Contact with and (suspected) exposure to other viral communicable diseases (principal) ==

== ENCOUNTER → 2020-05-06 | Outpatient (REF) | payer MEDICARE, MEDICAID | PROVIDERS: ATTEND Internal Medicine | DX: Z20.828 Contact with and (suspected) exposure to other viral communicable diseases (principal) ==

== ENCOUNTER → 2020-05-13 | Outpatient (REF) | payer MEDICARE, MEDICAID | PROVIDERS: ATTEND Internal Medicine | DX: Z11.52 Encounter for screening for COVID-19 (principal) ==

== ENCOUNTER → 2020-05-20 | Outpatient (REF) | payer MEDICARE, MEDICAID | PROVIDERS: ATTEND Internal Medicine | DX: Z20.822 Contact with and (suspected) exposure to COVID-19 (principal) ==

== ENCOUNTER → 2020-05-27 | Outpatient (REF) | payer MEDICARE, MEDICAID | PROVIDERS: ATTEND Internal Medicine | DX: Z20.822 Contact with and (suspected) exposure to COVID-19 (principal) ==

== ENCOUNTER → 2020-06-03 | Outpatient (REF) | payer MEDICARE, MEDICAID | PROVIDERS: ATTEND Internal Medicine | DX: Z20.822 Contact with and (suspected) exposure to COVID-19 (principal) ==

== ENCOUNTER → 2020-06-10 | Outpatient (REF) | payer MEDICARE, MEDICAID | PROVIDERS: ATTEND Internal Medicine | DX: Z11.52 Encounter for screening for COVID-19 (principal) ==

== ENCOUNTER → 2020-06-17 | Outpatient (REF) | payer MEDICARE, MEDICAID | PROVIDERS: ATTEND Internal Medicine | DX: Z20.822 Contact with and (suspected) exposure to COVID-19 (principal) ==

== ENCOUNTER → 2020-06-24 | Outpatient (REF) | payer MEDICARE, MEDICAID | PROVIDERS: ATTEND Internal Medicine | DX: Z20.822 Contact with and (suspected) exposure to COVID-19 (principal) ==

== ENCOUNTER → 2020-06-26 | Outpatient (REF) | payer MEDICARE, MEDICAID ==
[2020-06-26 12:05] LABS: HEMOGLOBIN A1c 5.8 %
== END ==
PROVIDERS: ATTEND Nurse Practitioner Adult Health
DX: E11.40 Type 2 diabetes mellitus with diabetic neuropathy, unspecified (principal)

== ENCOUNTER → 2020-07-01 | Outpatient (REF) | payer MEDICARE, MEDICAID | PROVIDERS: ATTEND Internal Medicine | DX: Z20.822 Contact with and (suspected) exposure to COVID-19 (principal) ==

== ENCOUNTER 2020-12-19 16:20 | Emergency (ER) | payer MEDICARE, MEDICAID ==
[~2020-12-19] VITALS: Ht 175.3 cm; Wt 80.0 kg
[~2020-12-19 16:20] MED LIST changes: +LIDO1CRE42 TOP; -LIDO2.5C15 TOP; -PEG1POW PO; +POLY17PO18 PO
[2020-12-19 17:51] VITALS: BP 156/69
[2020-12-19] MEDS ORDERED: diphenhydrAMINE 50MG/ML VIAL (J1200) IV STA (18:20)
[2020-12-19] MEDS ORDERED: DALBAVANCIN 1,125 MG in D5W 250 ML IV ONE (19:00)
== END 2020-12-19 21:37 | disposition home or self-care (01) ==
LOC: M ED 16:20 → EDBD 16:20 → M ED 21:37
DX: L03.115 Cellulitis of right lower limb (principal); I13.2 Hypertensive heart and chronic kidney disease with heart failure and with stage 5 chronic kidney disease, or end stage renal disease; E11.9 Type 2 diabetes mellitus without complications; E78.5 Hyperlipidemia, unspecified; Z99.2 Dependence on renal dialysis; Z88.0 Allergy status to penicillin; Z88.1 Allergy status to other antibiotic agents; Z79.899 Other long term (current) drug therapy
CPT/HCPCS: 80047; 96365; 96375; 99284; J0875; J1200

== ENCOUNTER → 2020-12-20 | Outpatient (REF) | payer MEDICARE, MEDICAID | LOC: M LAB REF 17:08 | PROVIDERS: ATTEND Nurse Practitioner Adult Health | DX: S81.801A Unspecified open wound, right lower leg, initial encounter (principal); X58.XXXA Exposure to other specified factors, initial encounter; Y92.9 Unspecified place or not applicable ==

== ENCOUNTER 2021-08-18 09:48 | Inpatient (IN) | payer MEDICARE, MEDICAID ==
[~2021-08-18] VITALS: Ht 170.2 cm; Wt 67.0 kg
[2021-08-18] MEDS: FOLIC ACID 1 MG TAB PO SCH (09:00)
[2021-08-18] MEDS: PANTOPRAZOLE 40MG TAB (PROTONIX) PO SCH (09:00)
[2021-08-18] MEDS: MIRALAX *UNIT DOSE* 17GM PACKET PO SCH (09:00)
[~2021-08-18 09:48] MED LIST changes: -CARV3.12; -CEFD1CAP8 PO; +CEFD300C41 PO; -COSO1SOL3 OP; +COSO1SOL3 OU; -MIDO5TA; +MIDO5TA PO; -THIA100T14; +THIA100T14 PO
[2021-08-18 11:03] LABS: BASO % 0.5 % (0.0-1.0); HEMATOCRIT 24.1 % (42.0-52.0); HEMOGLOBIN 7.9 g/dl (13.5-17.5); LYMPH # 0.5 10^3/uL (1.5-5.0); LYMPH % 24.9 % (24.0-44.0); MEAN CORPUSCULAR HEMOGLOBIN 32.2 pg (27.0-33.0); MEAN CORPUSCULAR HGB CONC 32.8 g/dl (32.0-36.5); MEAN CORPUSCULAR VOLUME 98.4 fl (80.0-96.0); MONO # 0.2 10^3/uL (0.0-0.8); MONO % 7.5 % (2.0-8.0); NEUTROPHILS # 1.3 10^3/uL (1.5-8.5); NEUTROPHILS % 64.6 % (36.0-66.0); RED BLOOD COUNT 2.45 10^6/uL (4.30-6.10)
[2021-08-18 11:33] LABS: ALBUMIN 2.8 GM/DL (3.2-5.2); BILIRUBIN,TOTAL 0.7 MG/DL (0.2-1.0); C REACTIVE PROTEIN QUANTITATIV 7.25 MG/DL (0.00-0.30); CALCIUM LEVEL 8.3 MG/DL (8.8-10.2); CREATININE FOR GFR 4.88 MG/DL (0.70-1.30); FREE T4 1.24 NG/DL (0.76-1.46); GLOMERULAR FILTRATION RATE 12.3 (>42); POTASSIUM SERUM 4.1 MEQ/L (3.5-5.1); THYROID STIMULATING HORMONE 0.33 uIU/ML (0.358-3.740); TOTAL PROTEIN 5.9 GM/DL (6.4-8.2)
[2021-08-18 11:46] LABS: PLATELET COUNT, AUTOMATED 94 10^3/uL (150-450)
[2021-08-18 11:49] LABS: RSV AMPLIFICATION NEGATIVE (NEGATIVE)
[2021-08-18] MEDS ORDERED: CLINDAMYCIN 900 MG in IV 1 EA IV ONE (13:25)
[2021-08-18 13:38] LABS: ERYTHROCYTE SEDIMENTATION RATE 65 mm/hr (0-20)
[2021-08-18] MEDS ORDERED: EUCE1CRE2 TOP (13:56)
[2021-08-18] MEDS ORDERED: ACET1TAB55 PO (14:03)
[2021-08-18] MEDS ORDERED: HOME MED LIST COMPLETE! XX SCH (14:15)
[2021-08-18] MEDS ORDERED: EMLA CREAM 5GM TUBE (LIDOCAINE/PRILOCAINE) TOP SCH (14:35)
[2021-08-18] MEDS ORDERED: LIDO1CRE42 TOP (14:59)
[2021-08-18 16:00] VITALS: BP 131/64
[2021-08-18] MEDS: HEPARIN SOD (PORCINE) 5000UNITS/ML 1ML VIAL/SYRINGE SQ SCH (20:51)
[2021-08-18] MEDS: TAMSULOSIN 0.4 MG CAP PO SCH (20:52)
[2021-08-18] MEDS: SENNA 8.6 MG TAB (SENOKOT) PO SCH (20:52)
[2021-08-18] MEDS: CARVedilol 3.125 MG TAB PO SCH (20:53)
[2021-08-18 22:00] VITALS: BP 124/60
[2021-08-18] MEDS: PRAVASTATIN 10 MG TAB PO SCH (22:08)
[2021-08-18] MEDS: COSOPT OCUMETER PLUS 10ML (DORZOLAMIDE/TIMOLOL) OU SCH (22:09)
[2021-08-19] MEDS: PANTOPRAZOLE 40MG TAB (PROTONIX) PO SCH (05:59)
[2021-08-19] MEDS: FOLIC ACID 1 MG TAB PO SCH (05:59)
[2021-08-19] MEDS: MIRALAX *UNIT DOSE* 17GM PACKET PO SCH (05:59)
[2021-08-19 06:00] VITALS: BP 116/53
[2021-08-19] MEDS ORDERED: SODIUM CHLORIDE 0.9% 1000ML IV PRN (06:50)
[2021-08-19] MEDS ORDERED: LIDOCAINE 1% SDV 5ML VIAL SC PRN (06:50)
[2021-08-19] MEDS: COSOPT OCUMETER PLUS 10ML (DORZOLAMIDE/TIMOLOL) OU SCH ×2 (07:48→22:46)
[2021-08-19 08:13] LABS: HEMOGLOBIN 8.4 g/dl (13.5-17.5); MEAN CORPUSCULAR HEMOGLOBIN 31.6 pg (27.0-33.0); MEAN CORPUSCULAR HGB CONC 32.3 g/dl (32.0-36.5); MEAN CORPUSCULAR VOLUME 97.7 fl (80.0-96.0); RED BLOOD COUNT 2.66 10^6/uL (4.30-6.10)
[2021-08-19 08:17] LABS: PLATELET COUNT, AUTOMATED 93 10^3/uL (150-450)
[2021-08-19 08:40] LABS: ALBUMIN 2.7 GM/DL (3.2-5.2); CALCIUM LEVEL 8.6 MG/DL (8.8-10.2); CREATININE FOR GFR 4.82 MG/DL (0.70-1.30); GLOMERULAR FILTRATION RATE 12.5 (>42); PHOSPHORUS LEVEL 4.1 MG/DL (2.5-4.9); POTASSIUM SERUM 4.6 MEQ/L (3.5-5.1)
[2021-08-19] MEDS ORDERED: MIDODRINE 5 MG TAB PO SCH (09:00)
[2021-08-19] MEDS: DARBEPOETIN 100 MCG/0.5 ML *DIALYSIS* SYRINGE (J0882) IV SCH (10:26)
[2021-08-19 12:05] VITALS: BP 144/61
[2021-08-19] MEDS: HEPARIN SOD (PORCINE) 5000UNITS/ML 1ML VIAL/SYRINGE SQ SCH ×2 (12:20→22:46)
[2021-08-19] MEDS: ACETAMINOPHEN TAB 650MG DOSE (2X325MG) PO PRN (12:21)
[2021-08-19] MEDS: MIDODRINE 5 MG TAB PO SCH (18:00)
[2021-08-19] MEDS: CLINDAMYCIN 150MG CAPSULE PO SCH (18:38)
[2021-08-19 22:00] VITALS: BP 100/51
[2021-08-19] MEDS: SENNA 8.6 MG TAB (SENOKOT) PO SCH (22:45)
[2021-08-19] MEDS: PRAVASTATIN 10 MG TAB PO SCH (22:45)
[2021-08-19] MEDS: TAMSULOSIN 0.4 MG CAP PO SCH (22:45)
[2021-08-19] MEDS: CARVedilol 3.125 MG TAB PO SCH (22:46)
[2021-08-20] MEDS: CLINDAMYCIN 150MG CAPSULE PO SCH ×3 (00:19→12:20)
[2021-08-20 06:00] VITALS: BP 134/78
[2021-08-20] MEDS: HEPARIN SOD (PORCINE) 5000UNITS/ML 1ML VIAL/SYRINGE SQ SCH ×3 (06:25→21:00)
[2021-08-20] MEDS: MIDODRINE 5 MG TAB PO SCH ×2 (06:47→18:00)
[2021-08-20 07:20] LABS: HEMATOCRIT 25.1 % (42.0-52.0); HEMOGLOBIN 8.3 g/dl (13.5-17.5); MEAN CORPUSCULAR HEMOGLOBIN 31.8 pg (27.0-33.0); MEAN CORPUSCULAR HGB CONC 33.1 g/dl (32.0-36.5); MEAN CORPUSCULAR VOLUME 96.2 fl (80.0-96.0); RED BLOOD COUNT 2.61 10^6/uL (4.30-6.10); WHITE BLOOD COUNT 1.6 10^3/uL (4.0-10.0)
[2021-08-20 07:21] LABS: PLATELET COUNT, AUTOMATED 91 10^3/uL (150-450)
[2021-08-20 08:02] LABS: ALBUMIN 2.3 GM/DL (3.2-5.2); CALCIUM LEVEL 8.2 MG/DL (8.8-10.2); CREATININE FOR GFR 2.5 MG/DL (0.70-1.30); GLOMERULAR FILTRATION RATE 26.7 (>42); PHOSPHORUS LEVEL 2.6 MG/DL (2.5-4.9); POTASSIUM SERUM 4.1 MEQ/L (3.5-5.1)
[2021-08-20 08:48] VITALS: BP 148/60
[2021-08-20] MEDS: MIRALAX *UNIT DOSE* 17GM PACKET PO SCH (08:50)
[2021-08-20] MEDS: FOLIC ACID 1 MG TAB PO SCH (08:50)
[2021-08-20] MEDS: LACTOBACILLUS ACIDOPHILUS CAP (BACID) PO SCH (08:50)
[2021-08-20] MEDS: PANTOPRAZOLE 40MG TAB (PROTONIX) PO SCH (08:50)
[2021-08-20] MEDS: CARVedilol 3.125 MG TAB PO SCH ×2 (08:51→20:59)
[2021-08-20] MEDS: COSOPT OCUMETER PLUS 10ML (DORZOLAMIDE/TIMOLOL) OU SCH ×2 (08:51→21:00)
[2021-08-20] MEDS ORDERED: LevoFLOXacin 500 MG TABLET PO ONE (12:00)
[2021-08-20 18:39] VITALS: BP 135/58
[2021-08-20] MEDS: TAMSULOSIN 0.4 MG CAP PO SCH (20:59)
[2021-08-20] MEDS: PRAVASTATIN 10 MG TAB PO SCH (21:00)
[2021-08-20] MEDS: SENNA 8.6 MG TAB (SENOKOT) PO SCH (21:00)
[2021-08-21] MEDS: PANTOPRAZOLE 40MG TAB (PROTONIX) PO SCH (05:40)
[2021-08-21] MEDS: MIRALAX *UNIT DOSE* 17GM PACKET PO SCH (05:40)
[2021-08-21] MEDS: FOLIC ACID 1 MG TAB PO SCH (05:40)
[2021-08-21] MEDS: HEPARIN SOD (PORCINE) 5000UNITS/ML 1ML VIAL/SYRINGE SQ SCH ×3 (05:40→20:33)
[2021-08-21] MEDS: MIDODRINE 5 MG TAB PO SCH ×2 (05:40→17:41)
[2021-08-21] MEDS: COSOPT OCUMETER PLUS 10ML (DORZOLAMIDE/TIMOLOL) OU SCH ×2 (05:41→20:33)
[2021-08-21] MEDS: LACTOBACILLUS ACIDOPHILUS CAP (BACID) PO SCH (05:41)
[2021-08-21 06:00] VITALS: BP 133/59
[2021-08-21 06:09] LABS: HEMATOCRIT 26.2 % (42.0-52.0); HEMOGLOBIN 8.4 g/dl (13.5-17.5); MEAN CORPUSCULAR HEMOGLOBIN 31.3 pg (27.0-33.0); MEAN CORPUSCULAR HGB CONC 32.1 g/dl (32.0-36.5); MEAN CORPUSCULAR VOLUME 97.8 fl (80.0-96.0); PLATELET COUNT, AUTOMATED 96 10^3/uL (150-450); RED BLOOD COUNT 2.68 10^6/uL (4.30-6.10); WHITE BLOOD COUNT 1.9 10^3/uL (4.0-10.0)
[2021-08-21 06:46] LABS: ALBUMIN 2.3 GM/DL (3.2-5.2); CALCIUM LEVEL 8.8 MG/DL (8.8-10.2); CREATININE FOR GFR 3.1 MG/DL (0.70-1.30); GLOMERULAR FILTRATION RATE 20.8 (>42); PHOSPHORUS LEVEL 2.2 MG/DL (2.5-4.9); POTASSIUM SERUM 4.7 MEQ/L (3.5-5.1)
[2021-08-21] MEDS ORDERED: SODIUM CHLORIDE 0.9% 1000ML IV PRN (07:20)
[2021-08-21] MEDS ORDERED: LIDOCAINE 1% SDV 5ML VIAL SC PRN (07:20)
[2021-08-21 17:41] VITALS: BP 129/57
[2021-08-21] MEDS: LevoFLOXacin 250 MG TABLET PO SCH (17:41)
[2021-08-21] MEDS: TAMSULOSIN 0.4 MG CAP PO SCH (20:31)
[2021-08-21] MEDS: SENNA 8.6 MG TAB (SENOKOT) PO SCH (20:32)
[2021-08-21] MEDS: PRAVASTATIN 10 MG TAB PO SCH (20:33)
[2021-08-21] MEDS: CARVedilol 3.125 MG TAB PO SCH (20:33)
[2021-08-22] MEDS: HEPARIN SOD (PORCINE) 5000UNITS/ML 1ML VIAL/SYRINGE SQ SCH ×3 (05:23→20:40)
[2021-08-22] MEDS: MIDODRINE 5 MG TAB PO SCH ×2 (05:23→18:21)
[2021-08-22 06:00] VITALS: BP 125/54
[2021-08-22 08:02] LABS: HEMATOCRIT 26.4 % (42.0-52.0); HEMOGLOBIN 8.6 g/dl (13.5-17.5); MEAN CORPUSCULAR HEMOGLOBIN 31.7 pg (27.0-33.0); MEAN CORPUSCULAR HGB CONC 32.6 g/dl (32.0-36.5); MEAN CORPUSCULAR VOLUME 97.4 fl (80.0-96.0); RED BLOOD COUNT 2.71 10^6/uL (4.30-6.10); WHITE BLOOD COUNT 1.9 10^3/uL (4.0-10.0)
[2021-08-22 08:03] LABS: PLATELET COUNT, AUTOMATED 91 10^3/uL (150-450)
[2021-08-22] MEDS: PANTOPRAZOLE 40MG TAB (PROTONIX) PO SCH (08:30)
[2021-08-22] MEDS: LACTOBACILLUS ACIDOPHILUS CAP (BACID) PO SCH (08:30)
[2021-08-22] MEDS: ACETAMINOPHEN TAB 650MG DOSE (2X325MG) PO PRN (08:30)
[2021-08-22] MEDS: FOLIC ACID 1 MG TAB PO SCH (08:31)
[2021-08-22] MEDS: CARVedilol 3.125 MG TAB PO SCH ×2 (08:31→20:40)
[2021-08-22] MEDS: MIRALAX *UNIT DOSE* 17GM PACKET PO SCH (08:31)
[2021-08-22] MEDS: COSOPT OCUMETER PLUS 10ML (DORZOLAMIDE/TIMOLOL) OU SCH ×2 (08:32→20:40)
[2021-08-22 08:36] LABS: ALBUMIN 2.4 GM/DL (3.2-5.2); CALCIUM LEVEL 8.3 MG/DL (8.8-10.2); CREATININE FOR GFR 2.16 MG/DL (0.70-1.30); GLOMERULAR FILTRATION RATE 31.6 (>42); PHOSPHORUS LEVEL 1.8 MG/DL (2.5-4.9); POTASSIUM SERUM 4.1 MEQ/L (3.5-5.1)
[2021-08-22] MEDS: LevoFLOXacin 250 MG TABLET PO SCH (15:20)
[2021-08-22] MEDS ORDERED: diphenhydrAMINE 25MG CAP PO ONE (18:05)
[2021-08-22] MEDS ORDERED: CEFEPIME HCL 1 GM in D5W MINI-BAG PLUS 50 ML IV SCH (20:00)
[2021-08-22] MEDS: TAMSULOSIN 0.4 MG CAP PO SCH (20:39)
[2021-08-22] MEDS: LINEZOLID 600MG TABLET (ZYVOX) PO SCH (20:39)
[2021-08-22] MEDS: SENNA 8.6 MG TAB (SENOKOT) PO SCH (20:39)
[2021-08-22] MEDS: PRAVASTATIN 10 MG TAB PO SCH (20:40)
[2021-08-23] MEDS: HEPARIN SOD (PORCINE) 5000UNITS/ML 1ML VIAL/SYRINGE SQ SCH ×3 (05:46→22:22)
[2021-08-23] MEDS: FOLIC ACID 1 MG TAB PO SCH (05:46)
[2021-08-23] MEDS: PANTOPRAZOLE 40MG TAB (PROTONIX) PO SCH (05:46)
[2021-08-23] MEDS: MIDODRINE 5 MG TAB PO SCH ×2 (05:46→18:23)
[2021-08-23] MEDS: MIRALAX *UNIT DOSE* 17GM PACKET PO SCH (05:46)
[2021-08-23] MEDS: COSOPT OCUMETER PLUS 10ML (DORZOLAMIDE/TIMOLOL) OU SCH ×2 (05:47→22:22)
[2021-08-23 06:00] VITALS: BP 128/55
[2021-08-23 06:39] LABS: HEMATOCRIT 25.9 % (42.0-52.0); HEMOGLOBIN 8.5 g/dl (13.5-17.5); MEAN CORPUSCULAR HEMOGLOBIN 32.3 pg (27.0-33.0); MEAN CORPUSCULAR HGB CONC 32.8 g/dl (32.0-36.5); MEAN CORPUSCULAR VOLUME 98.5 fl (80.0-96.0); RED BLOOD COUNT 2.63 10^6/uL (4.30-6.10); WHITE BLOOD COUNT 2.1 10^3/uL (4.0-10.0)
[2021-08-23 06:53] LABS: PLATELET COUNT, AUTOMATED 85 10^3/uL (150-450)
[2021-08-23 07:09] LABS: ALBUMIN 2.4 GM/DL (3.2-5.2); CREATININE FOR GFR 3.03 MG/DL (0.70-1.30); GLOMERULAR FILTRATION RATE 21.4 (>42); PHOSPHORUS LEVEL 1.9 MG/DL (2.5-4.9)
[2021-08-23] MEDS ORDERED: LIDOCAINE 1% SDV 5ML VIAL SC PRN (08:10)
[2021-08-23] MEDS ORDERED: SODIUM CHLORIDE 0.9% 1000ML IV PRN (08:10)
[2021-08-23] MEDS ORDERED: diphenhydrAMINE CREAM 30GM TOP PRN (12:00)
[2021-08-23 12:30] VITALS: BP 130/56
[2021-08-23] MEDS ORDERED: diphenhydrAMINE 25MG CAP PO ONE (12:30)
[2021-08-23] MEDS: LINEZOLID 600MG TABLET (ZYVOX) PO SCH ×2 (12:58→22:22)
[2021-08-23 18:18] VITALS: BP 123/54
[2021-08-23] MEDS: diphenhydrAMINE 25MG CAP PO SCH (18:23)
[2021-08-23] MEDS: MEROPENEM INJ 500 MG in IV 1 EA IV SCH (19:02)
[2021-08-23] MEDS: CARVedilol 3.125 MG TAB PO SCH (22:21)
[2021-08-23] MEDS: TAMSULOSIN 0.4 MG CAP PO SCH (22:22)
[2021-08-23] MEDS: SENNA 8.6 MG TAB (SENOKOT) PO SCH (22:22)
[2021-08-23] MEDS: PRAVASTATIN 10 MG TAB PO SCH (22:22)
[2021-08-23] MEDS: ACETAMINOPHEN TAB 650MG DOSE (2X325MG) PO PRN (22:23)
[2021-08-24] MEDS: HEPARIN SOD (PORCINE) 5000UNITS/ML 1ML VIAL/SYRINGE SQ SCH ×3 (05:47→22:00)
[2021-08-24] MEDS: MIDODRINE 5 MG TAB PO SCH ×2 (05:47→17:16)
[2021-08-24 06:34] VITALS: BP 117/49
[2021-08-24 07:25] LABS: HEMATOCRIT 26.4 % (42.0-52.0); HEMOGLOBIN 8.8 g/dl (13.5-17.5); MEAN CORPUSCULAR HEMOGLOBIN 32.6 pg (27.0-33.0); MEAN CORPUSCULAR HGB CONC 33.3 g/dl (32.0-36.5); MEAN CORPUSCULAR VOLUME 97.8 fl (80.0-96.0); WHITE BLOOD COUNT 2.2 10^3/uL (4.0-10.0)
[2021-08-24 07:28] LABS: PLATELET COUNT, AUTOMATED 75 10^3/uL (150-450)
[2021-08-24 07:45] LABS: ALBUMIN 2.3 GM/DL (3.2-5.2); CALCIUM LEVEL 8.2 MG/DL (8.8-10.2); CREATININE FOR GFR 2.45 MG/DL (0.70-1.30); GLOMERULAR FILTRATION RATE 27.3 (>42); PHOSPHORUS LEVEL 1.9 MG/DL (2.5-4.9); POTASSIUM SERUM 3.4 MEQ/L (3.5-5.1)
[2021-08-24] MEDS: FOLIC ACID 1 MG TAB PO SCH (09:25)
[2021-08-24] MEDS: PANTOPRAZOLE 40MG TAB (PROTONIX) PO SCH (09:25)
[2021-08-24] MEDS: LINEZOLID 600MG TABLET (ZYVOX) PO SCH ×2 (09:25→22:15)
[2021-08-24] MEDS: MIRALAX *UNIT DOSE* 17GM PACKET PO SCH (09:25)
[2021-08-24] MEDS: CARVedilol 3.125 MG TAB PO SCH ×2 (09:27→21:00)
[2021-08-24] MEDS: COSOPT OCUMETER PLUS 10ML (DORZOLAMIDE/TIMOLOL) OU SCH ×2 (09:27→22:17)
[2021-08-24] MEDS: diphenhydrAMINE 25MG CAP PO SCH (17:16)
[2021-08-24] MEDS: MEROPENEM INJ 500 MG in IV 1 EA IV SCH (17:17)
[2021-08-24] MEDS: ACETAMINOPHEN TAB 650MG DOSE (2X325MG) PO PRN (22:15)
[2021-08-24] MEDS: SENNA 8.6 MG TAB (SENOKOT) PO SCH (22:16)
[2021-08-24] MEDS: TAMSULOSIN 0.4 MG CAP PO SCH (22:16)
[2021-08-24] MEDS: PRAVASTATIN 10 MG TAB PO SCH (22:16)
[2021-08-25 06:00] VITALS: BP 103/47
[2021-08-25] MEDS: HEPARIN SOD (PORCINE) 5000UNITS/ML 1ML VIAL/SYRINGE SQ SCH ×3 (06:00→22:00)
[2021-08-25] MEDS: MIDODRINE 5 MG TAB PO SCH ×2 (06:29→17:51)
[2021-08-25 06:51] LABS: HEMATOCRIT 26.4 % (42.0-52.0); HEMOGLOBIN 8.4 g/dl (13.5-17.5); MEAN CORPUSCULAR HEMOGLOBIN 30.9 pg (27.0-33.0); MEAN CORPUSCULAR HGB CONC 31.8 g/dl (32.0-36.5); MEAN CORPUSCULAR VOLUME 97.1 fl (80.0-96.0); RED BLOOD COUNT 2.72 10^6/uL (4.30-6.10); WHITE BLOOD COUNT 2.1 10^3/uL (4.0-10.0)
[2021-08-25 06:53] LABS: PLATELET COUNT, AUTOMATED 70 10^3/uL (150-450)
[2021-08-25 07:05] LABS: ALBUMIN 2.3 GM/DL (3.2-5.2); CALCIUM LEVEL 8.1 MG/DL (8.8-10.2); CREATININE FOR GFR 3.34 MG/DL (0.70-1.30); GLOMERULAR FILTRATION RATE 19.1 (>42); PHOSPHORUS LEVEL 2.8 MG/DL (2.5-4.9); POTASSIUM SERUM 3.3 MEQ/L (3.5-5.1)
[2021-08-25] MEDS: LINEZOLID 600MG TABLET (ZYVOX) PO SCH ×2 (08:30→22:47)
[2021-08-25] MEDS: PANTOPRAZOLE 40MG TAB (PROTONIX) PO SCH (08:30)
[2021-08-25] MEDS: FOLIC ACID 1 MG TAB PO SCH (08:30)
[2021-08-25] MEDS: COSOPT OCUMETER PLUS 10ML (DORZOLAMIDE/TIMOLOL) OU SCH ×2 (08:32→22:48)
[2021-08-25] MEDS: CARVedilol 3.125 MG TAB PO SCH ×2 (08:32→22:47)
[2021-08-25] MEDS: MIRALAX *UNIT DOSE* 17GM PACKET PO SCH (08:32)
[2021-08-25] MEDS: diphenhydrAMINE 25MG CAP PO SCH (17:50)
[2021-08-25] MEDS: MEROPENEM INJ 500 MG in IV 1 EA IV SCH (18:16)
[2021-08-25] MEDS: SENNA 8.6 MG TAB (SENOKOT) PO SCH (21:00)
[2021-08-25] MEDS: TAMSULOSIN 0.4 MG CAP PO SCH (22:48)
[2021-08-25] MEDS: PRAVASTATIN 10 MG TAB PO SCH (22:48)
[2021-08-25] MEDS: ACETAMINOPHEN TAB 650MG DOSE (2X325MG) PO PRN (22:49)
[2021-08-26 05:56] LABS: HEMATOCRIT 27.4 % (42.0-52.0); HEMOGLOBIN 8.9 g/dl (13.5-17.5); MEAN CORPUSCULAR HEMOGLOBIN 31.8 pg (27.0-33.0); MEAN CORPUSCULAR HGB CONC 32.5 g/dl (32.0-36.5); MEAN CORPUSCULAR VOLUME 97.9 fl (80.0-96.0); PLATELET COUNT, AUTOMATED 71 10^3/uL (150-450); WHITE BLOOD COUNT 2.5 10^3/uL (4.0-10.0)
[2021-08-26 05:59] VITALS: BP 119/49
[2021-08-26] MEDS ORDERED: SODIUM CHLORIDE 0.9% 1000ML IV PRN (06:00)
[2021-08-26] MEDS ORDERED: LIDOCAINE 1% SDV 5ML VIAL SC PRN (06:00)
[2021-08-26 06:20] LABS: ATYPICAL LYMPH 3 % (0-5); BASOPHILS 1 % (0-1); EOSINOPHILS 3 % (0-3); LYMPHOCYTES 33 % (16-44); MONOCYTES 3 % (0-5); NEUTROPHILS 57 % (28-66)
[2021-08-26] MEDS: FOLIC ACID 1 MG TAB PO SCH (06:20)
[2021-08-26] MEDS: LINEZOLID 600MG TABLET (ZYVOX) PO SCH (06:20)
[2021-08-26] MEDS: PANTOPRAZOLE 40MG TAB (PROTONIX) PO SCH (06:20)
[2021-08-26 06:21] LABS: PLATELET ESTIMATE DECREASED (NORMAL)
[2021-08-26] MEDS: COSOPT OCUMETER PLUS 10ML (DORZOLAMIDE/TIMOLOL) OU SCH ×2 (06:21→20:41)
[2021-08-26] MEDS: MIDODRINE 5 MG TAB PO SCH ×2 (06:25→17:39)
[2021-08-26] MEDS: MIRALAX *UNIT DOSE* 17GM PACKET PO SCH (09:00)
[2021-08-26] MEDS: DARBEPOETIN 100 MCG/0.5 ML *DIALYSIS* SYRINGE (J0882) IV SCH (10:21)
[2021-08-26] MEDS ORDERED: diphenhydrAMINE 25MG CAP PO ONE (10:35)
[2021-08-26] MEDS: PRAVASTATIN 10 MG TAB PO SCH (20:41)
[2021-08-26] MEDS: TAMSULOSIN 0.4 MG CAP PO SCH (20:41)
[2021-08-26] MEDS: SENNA 8.6 MG TAB (SENOKOT) PO SCH (20:42)
[2021-08-26] MEDS: CARVedilol 3.125 MG TAB PO SCH (20:42)
[2021-08-26] MEDS: ACETAMINOPHEN TAB 650MG DOSE (2X325MG) PO PRN (20:42)
[2021-08-27] MEDS: MIDODRINE 5 MG TAB PO SCH ×2 (05:40→17:06)
[2021-08-27 06:00] VITALS: BP 123/48
[2021-08-27] MEDS: MIRALAX *UNIT DOSE* 17GM PACKET PO SCH (09:00)
[2021-08-27] MEDS: PANTOPRAZOLE 40MG TAB (PROTONIX) PO SCH (09:44)
[2021-08-27] MEDS: FOLIC ACID 1 MG TAB PO SCH (09:44)
[2021-08-27] MEDS: CARVedilol 3.125 MG TAB PO SCH ×2 (09:45→21:47)
[2021-08-27] MEDS: COSOPT OCUMETER PLUS 10ML (DORZOLAMIDE/TIMOLOL) OU SCH ×2 (09:45→21:47)
[2021-08-27] MEDS: SENNA 8.6 MG TAB (SENOKOT) PO SCH (21:44)
[2021-08-27] MEDS: PRAVASTATIN 10 MG TAB PO SCH (21:44)
[2021-08-27] MEDS: TAMSULOSIN 0.4 MG CAP PO SCH (21:44)
[2021-08-28] MEDS: MIDODRINE 5 MG TAB PO SCH ×2 (05:16→18:43)
[2021-08-28] MEDS: FOLIC ACID 1 MG TAB PO SCH (05:16)
[2021-08-28] MEDS: MIRALAX *UNIT DOSE* 17GM PACKET PO SCH (05:17)
[2021-08-28] MEDS: PANTOPRAZOLE 40MG TAB (PROTONIX) PO SCH (05:17)
[2021-08-28] MEDS ORDERED: SODIUM CHLORIDE 0.9% 1000ML IV PRN (06:00)
[2021-08-28] MEDS ORDERED: LIDOCAINE 1% SDV 5ML VIAL SC PRN (06:00)
[2021-08-28 06:27] VITALS: BP 134/56
[2021-08-28] MEDS: COSOPT OCUMETER PLUS 10ML (DORZOLAMIDE/TIMOLOL) OU SCH ×2 (12:30→22:01)
[2021-08-28 20:00] VITALS: BP 115/54
[2021-08-28] MEDS: TAMSULOSIN 0.4 MG CAP PO SCH (22:01)
[2021-08-28] MEDS: CARVedilol 3.125 MG TAB PO SCH (22:01)
[2021-08-28] MEDS: PRAVASTATIN 10 MG TAB PO SCH (22:01)
[2021-08-28] MEDS: SENNA 8.6 MG TAB (SENOKOT) PO SCH (22:01)
[2021-08-29 06:00] VITALS: BP 136/72
[2021-08-29] MEDS: MIDODRINE 5 MG TAB PO SCH ×2 (06:21→18:00)
[2021-08-29] MEDS: ACETAMINOPHEN TAB 650MG DOSE (2X325MG) PO PRN (08:19)
[2021-08-29] MEDS: FOLIC ACID 1 MG TAB PO SCH (08:19)
[2021-08-29] MEDS: MIRALAX *UNIT DOSE* 17GM PACKET PO SCH (08:19)
[2021-08-29] MEDS: PANTOPRAZOLE 40MG TAB (PROTONIX) PO SCH (08:19)
[2021-08-29] MEDS: COSOPT OCUMETER PLUS 10ML (DORZOLAMIDE/TIMOLOL) OU SCH ×2 (08:24→21:38)
[2021-08-29] MEDS: CARVedilol 3.125 MG TAB PO SCH ×2 (08:24→21:40)
[2021-08-29] MEDS: PRAVASTATIN 10 MG TAB PO SCH (21:38)
[2021-08-29] MEDS: TAMSULOSIN 0.4 MG CAP PO SCH (21:38)
[2021-08-29] MEDS: SENNA 8.6 MG TAB (SENOKOT) PO SCH (21:38)
[2021-08-30] MEDS ORDERED: LIDOCAINE 1% SDV 5ML VIAL SC PRN (02:55)
[2021-08-30] MEDS ORDERED: SODIUM CHLORIDE 0.9% 1000ML IV PRN (02:55)
[2021-08-30] MEDS: MIRALAX *UNIT DOSE* 17GM PACKET PO SCH (05:32)
[2021-08-30] MEDS: MIDODRINE 5 MG TAB PO SCH ×2 (05:32→17:10)
[2021-08-30] MEDS: PANTOPRAZOLE 40MG TAB (PROTONIX) PO SCH (05:32)
[2021-08-30] MEDS: COSOPT OCUMETER PLUS 10ML (DORZOLAMIDE/TIMOLOL) OU SCH ×2 (05:32→20:50)
[2021-08-30] MEDS: FOLIC ACID 1 MG TAB PO SCH (05:32)
[2021-08-30 05:53] VITALS: BP 137/53
[2021-08-30 07:01] LABS: HEMATOCRIT 26.6 % (42.0-52.0); HEMOGLOBIN 8.8 g/dl (13.5-17.5); MEAN CORPUSCULAR HEMOGLOBIN 32.5 pg (27.0-33.0); MEAN CORPUSCULAR HGB CONC 33.1 g/dl (32.0-36.5); MEAN CORPUSCULAR VOLUME 98.2 fl (80.0-96.0); RED BLOOD COUNT 2.71 10^6/uL (4.30-6.10); WHITE BLOOD COUNT 2.3 10^3/uL (4.0-10.0)
[2021-08-30 07:03] LABS: PLATELET COUNT, AUTOMATED 44 10^3/uL (150-450)
[2021-08-30 07:15] LABS: ALBUMIN 2.7 GM/DL (3.2-5.2); CALCIUM LEVEL 8.5 MG/DL (8.8-10.2); CREATININE FOR GFR 2.87 MG/DL (0.70-1.30); GLOMERULAR FILTRATION RATE 22.7 (>42); PHOSPHORUS LEVEL 3.6 MG/DL (2.5-4.9); POTASSIUM SERUM 3.2 MEQ/L (3.5-5.1)
[2021-08-30 12:15] VITALS: BP 117/52
[2021-08-30] MEDS: SENNA 8.6 MG TAB (SENOKOT) PO SCH (20:49)
[2021-08-30] MEDS: PRAVASTATIN 10 MG TAB PO SCH (20:49)
[2021-08-30] MEDS: TAMSULOSIN 0.4 MG CAP PO SCH (20:49)
[2021-08-30] MEDS: CARVedilol 3.125 MG TAB PO SCH (20:49)
[2021-08-31] MEDS: MIDODRINE 5 MG TAB PO SCH ×2 (05:37→17:27)
[2021-08-31 06:00] VITALS: BP 146/64
[2021-08-31] MEDS: MIRALAX *UNIT DOSE* 17GM PACKET PO SCH (09:00)
[2021-08-31] MEDS: PANTOPRAZOLE 40MG TAB (PROTONIX) PO SCH (09:25)
[2021-08-31] MEDS: FOLIC ACID 1 MG TAB PO SCH (09:26)
[2021-08-31] MEDS: COSOPT OCUMETER PLUS 10ML (DORZOLAMIDE/TIMOLOL) OU SCH ×2 (09:26→20:13)
[2021-08-31] MEDS: CARVedilol 3.125 MG TAB PO SCH ×2 (09:26→20:13)
[2021-08-31] MEDS ORDERED: POTASSIUM CHLORIDE 10MEQ SR TABLET PO ONE (13:45)
[2021-08-31 17:27] VITALS: BP 149/68
[2021-08-31] MEDS ORDERED: DEXTROSE 50% 50 ML SYRINGE IV PRN (19:55)
[2021-08-31] MEDS ORDERED: GLUCOSE 4GM CHEW TABLET PO PRN (19:55)
[2021-08-31] MEDS ORDERED: GLUCAGON INJ 1MG VIAL SC PRN (19:55)
[2021-08-31] MEDS: TAMSULOSIN 0.4 MG CAP PO SCH (20:12)
[2021-08-31] MEDS: PRAVASTATIN 10 MG TAB PO SCH (20:12)
[2021-08-31] MEDS: SENNA 8.6 MG TAB (SENOKOT) PO SCH (20:12)
[2021-08-31] MEDS: HumaLOG INSULIN (NovoLOG) PER UNIT SC SCH (20:19)
[2021-09-01] MEDS: MIDODRINE 5 MG TAB PO SCH ×2 (05:35→18:00)
[2021-09-01 06:00] VITALS: BP 141/64
[2021-09-01 06:38] LABS: HEMATOCRIT 25.9 % (42.0-52.0); HEMOGLOBIN 8.4 g/dl (13.5-17.5); MEAN CORPUSCULAR HEMOGLOBIN 31.9 pg (27.0-33.0); MEAN CORPUSCULAR HGB CONC 32.4 g/dl (32.0-36.5); MEAN CORPUSCULAR VOLUME 98.5 fl (80.0-96.0); RED BLOOD COUNT 2.63 10^6/uL (4.30-6.10); WHITE BLOOD COUNT 2.4 10^3/uL (4.0-10.0)
[2021-09-01 06:43] LABS: PLATELET COUNT, AUTOMATED 46 10^3/uL (150-450)
[2021-09-01 06:58] LABS: HEMOGLOBIN A1c 5.9 %
[2021-09-01 07:07] LABS: ALBUMIN 2.7 GM/DL (3.2-5.2); CALCIUM LEVEL 8.3 MG/DL (8.8-10.2); CREATININE FOR GFR 2.82 MG/DL (0.70-1.30); GLOMERULAR FILTRATION RATE 23.2 (>42); MAGNESIUM LEVEL 2.1 MG/DL (1.8-2.4); PHOSPHORUS LEVEL 2.1 MG/DL (2.5-4.9); POTASSIUM SERUM 3.9 MEQ/L (3.5-5.1)
[2021-09-01] MEDS: HumaLOG INSULIN (NovoLOG) PER UNIT SC SCH ×4 (07:30→20:58)
[2021-09-01] MEDS: PANTOPRAZOLE 40MG TAB (PROTONIX) PO SCH (07:56)
[2021-09-01] MEDS: COSOPT OCUMETER PLUS 10ML (DORZOLAMIDE/TIMOLOL) OU SCH ×2 (07:57→21:52)
[2021-09-01] MEDS: FOLIC ACID 1 MG TAB PO SCH (07:57)
[2021-09-01] MEDS: CARVedilol 3.125 MG TAB PO SCH ×2 (07:57→20:57)
[2021-09-01] MEDS: MIRALAX *UNIT DOSE* 17GM PACKET PO SCH (08:03)
[2021-09-01] MEDS: PRAVASTATIN 10 MG TAB PO SCH (20:57)
[2021-09-01] MEDS: SENNA 8.6 MG TAB (SENOKOT) PO SCH (20:57)
[2021-09-01] MEDS: TAMSULOSIN 0.4 MG CAP PO SCH (20:57)
[2021-09-02] MEDS ORDERED: SODIUM CHLORIDE 0.9% 1000ML IV PRN (01:50)
[2021-09-02] MEDS ORDERED: LIDOCAINE 1% SDV 5ML VIAL SC PRN (01:50)
[2021-09-02] MEDS: MIDODRINE 5 MG TAB PO SCH ×2 (06:00→17:38)
[2021-09-02] MEDS: PANTOPRAZOLE 40MG TAB (PROTONIX) PO SCH (06:30)
[2021-09-02] MEDS: CARVedilol 3.125 MG TAB PO SCH (06:30)
[2021-09-02] MEDS: FOLIC ACID 1 MG TAB PO SCH (06:30)
[2021-09-02] MEDS: MIRALAX *UNIT DOSE* 17GM PACKET PO SCH (06:31)
[2021-09-02] MEDS: COSOPT OCUMETER PLUS 10ML (DORZOLAMIDE/TIMOLOL) OU SCH ×2 (06:31→22:18)
[2021-09-02] MEDS: HumaLOG INSULIN (NovoLOG) PER UNIT SC SCH ×4 (07:30→22:15)
[2021-09-02 07:34] VITALS: BP 153/72
[2021-09-02 07:42] VITALS: BP 157/73
[2021-09-02] MEDS: DARBEPOETIN 100 MCG/0.5 ML *DIALYSIS* SYRINGE (J0882) IV SCH (08:28)
[2021-09-02] MEDS: TAMSULOSIN 0.4 MG CAP PO SCH (22:17)
[2021-09-02] MEDS: PRAVASTATIN 10 MG TAB PO SCH (22:17)
[2021-09-02] MEDS: SENNA 8.6 MG TAB (SENOKOT) PO SCH (22:17)
[2021-09-03 06:00] VITALS: BP 140/70
[2021-09-03] MEDS: MIDODRINE 5 MG TAB PO SCH (06:00)
[2021-09-03] MEDS: HumaLOG INSULIN (NovoLOG) PER UNIT SC SCH (07:30)
[2021-09-03] MEDS: MIRALAX *UNIT DOSE* 17GM PACKET PO SCH (09:00)
[2021-09-03 10:06] VITALS: BP 140/68
[2021-09-03] MEDS: CARVedilol 3.125 MG TAB PO SCH (10:06)
[2021-09-03] MEDS: PANTOPRAZOLE 40MG TAB (PROTONIX) PO SCH (10:06)
[2021-09-03] MEDS: FOLIC ACID 1 MG TAB PO SCH (10:06)
[2021-09-03] MEDS: COSOPT OCUMETER PLUS 10ML (DORZOLAMIDE/TIMOLOL) OU SCH (10:07)
[2021-09-03] MEDS ORDERED: LIDO1CRE42 TOP (10:23)
[2021-09-03] MEDS ORDERED: MIDO5TA PO (10:23)
== END 2021-09-03 11:00 | DRG 299 ==
LOC: M ED 09:48 → M ED INP 14:31 → ENRESERV 15:09 → M MS5PR 15:40
PROVIDERS: ADMIT Family Medicine; ATTEND General Practice
PROC: 5A1D70Z Performance of Urinary Filtration, Intermittent, Less than 6 Hours Per Day (ICD-10-PCS; principal; 2021-08-19)
DX: E11.51 Type 2 diabetes mellitus with diabetic peripheral angiopathy without gangrene (principal); N18.6 End stage renal disease; L89.313 Pressure ulcer of right buttock, stage 3; L03.115 Cellulitis of right lower limb; I50.32 Chronic diastolic (congestive) heart failure; I13.2 Hypertensive heart and chronic kidney disease with heart failure and with stage 5 chronic kidney disease, or end stage renal disease; E46 Unspecified protein-calorie malnutrition; D61.818 Other pancytopenia; D63.1 Anemia in chronic kidney disease; E78.5 Hyperlipidemia, unspecified; E11.22 Type 2 diabetes mellitus with diabetic chronic kidney disease; K21.9 Gastro-esophageal reflux disease without esophagitis; K74.60 Unspecified cirrhosis of liver; N40.0 Benign prostatic hyperplasia without lower urinary tract symptoms; E11.319 Type 2 diabetes mellitus with unspecified diabetic retinopathy without macular edema; Z99.2 Dependence on renal dialysis; I95.89 Other hypotension; E87.6 Hypokalemia; L97.519 Non-pressure chronic ulcer of other part of right foot with unspecified severity; D69.6 Thrombocytopenia, unspecified; I70.25 Atherosclerosis of native arteries of other extremities with ulceration; Z91.15 Patient's noncompliance with renal dialysis; Z79.899 Other long term (current) drug therapy; Z88.0 Allergy status to penicillin; Z88.8 Allergy status to other drugs, medicaments and biological substances; I48.0 Paroxysmal atrial fibrillation; Z89.612 Acquired absence of left leg above knee

== ENCOUNTER → 2021-09-03 | Outpatient (REF) | payer MEDICARE, MEDICAID ==
[~2021-09-03] MED LIST changes: +ACET1TAB55 PO; +EUCE1CRE2 TOP
== END ==
PROVIDERS: ATTEND Internal Medicine
DX: Z11.2 Encounter for screening for other bacterial diseases (principal)

== ENCOUNTER → 2021-09-08 | Outpatient (REF) | payer MEDICARE, MEDICAID ==
[2021-09-08 10:42] LABS: HEMOGLOBIN 8.8 g/dl (13.5-17.5); MEAN CORPUSCULAR HEMOGLOBIN 31.7 pg (27.0-33.0); MEAN CORPUSCULAR HGB CONC 31.4 g/dl (32.0-36.5); MEAN CORPUSCULAR VOLUME 100.7 fl (80.0-96.0); RED BLOOD COUNT 2.78 10^6/uL (4.30-6.10); WHITE BLOOD COUNT 2.3 10^3/uL (4.0-10.0)
[2021-09-08 10:57] LABS: PLATELET COUNT, AUTOMATED 78 10^3/uL (150-450)
[2021-09-08 11:07] LABS: CALCIUM LEVEL 8.9 MG/DL (8.8-10.2); CREATININE FOR GFR 2.96 MG/DL (0.70-1.30); GLOMERULAR FILTRATION RATE 21.9 (>42); POTASSIUM SERUM 3.7 MEQ/L (3.5-5.1)
== END ==
PROVIDERS: ATTEND Internal Medicine
DX: L03.90 Cellulitis, unspecified (principal)

== ENCOUNTER → 2021-09-15 | Outpatient (REF) | payer MEDICARE, MEDICAID ==
[2021-09-15 10:28] LABS: HEMATOCRIT 29.4 % (42.0-52.0); HEMOGLOBIN 9.2 g/dl (13.5-17.5); MEAN CORPUSCULAR HEMOGLOBIN 31.8 pg (27.0-33.0); MEAN CORPUSCULAR HGB CONC 31.3 g/dl (32.0-36.5); MEAN CORPUSCULAR VOLUME 101.7 fl (80.0-96.0); RED BLOOD COUNT 2.89 10^6/uL (4.30-6.10); WHITE BLOOD COUNT 2.5 10^3/uL (4.0-10.0)
[2021-09-15 10:31] LABS: PLATELET COUNT, AUTOMATED 76 10^3/uL (150-450)
[2021-09-15 11:32] LABS: CALCIUM LEVEL 8.7 MG/DL (8.8-10.2); CREATININE FOR GFR 2.83 MG/DL (0.70-1.30); GLOMERULAR FILTRATION RATE 23.1 (>42); POTASSIUM SERUM 3.6 MEQ/L (3.5-5.1)
== END ==
PROVIDERS: ATTEND Internal Medicine
DX: L03.90 Cellulitis, unspecified (principal)

== ENCOUNTER → 2021-09-22 | Outpatient (REF) | payer MEDICARE, MEDICAID ==
[2021-09-22 10:21] LABS: HEMATOCRIT 29.8 % (42.0-52.0); HEMOGLOBIN 9.5 g/dl (13.5-17.5); MEAN CORPUSCULAR HEMOGLOBIN 31.9 pg (27.0-33.0); MEAN CORPUSCULAR HGB CONC 31.9 g/dl (32.0-36.5); RED BLOOD COUNT 2.98 10^6/uL (4.30-6.10); WHITE BLOOD COUNT 2.7 10^3/uL (4.0-10.0)
[2021-09-22 10:37] LABS: PLATELET COUNT, AUTOMATED 64 10^3/uL (150-450)
[2021-09-22 10:57] LABS: CALCIUM LEVEL 8.7 MG/DL (8.8-10.2); CREATININE FOR GFR 3.21 MG/DL (0.70-1.30); POTASSIUM SERUM 3.5 MEQ/L (3.5-5.1)
== END ==
PROVIDERS: ATTEND Internal Medicine
DX: L03.90 Cellulitis, unspecified (principal)

== ENCOUNTER → 2021-09-26 | Outpatient (CLI) | payer MEDICARE, MEDICAID | LOC: M RAD 13:56 | PROVIDERS: ATTEND Physician Assistant | DX: M79.605 Pain in left leg (principal); R09.89 Other specified symptoms and signs involving the circulatory and respiratory systems ==

== ENCOUNTER → 2021-09-26 | Outpatient (REF) | payer MEDICARE, MEDICAID ==
[2021-09-26 16:46] LABS: BASO % 0.9 % (0.0-1.0); EOS # 0.1 10^3/uL (0.0-0.5); EOS % 3.6 % (0.0-3.0); HEMATOCRIT 29.8 % (42.0-52.0); HEMOGLOBIN 9.6 g/dl (13.5-17.5); LYMPH # 0.8 10^3/uL (1.5-5.0); LYMPH % 37.3 % (24.0-44.0); MEAN CORPUSCULAR HEMOGLOBIN 32.8 pg (27.0-33.0); MEAN CORPUSCULAR HGB CONC 32.2 g/dl (32.0-36.5); MEAN CORPUSCULAR VOLUME 101.7 fl (80.0-96.0); MONO # 0.2 10^3/uL (0.0-0.8); MONO % 8.6 % (2.0-8.0); NEUTROPHILS # 1.1 10^3/uL (1.5-8.5); NEUTROPHILS % 49.1 % (36.0-66.0); RED BLOOD COUNT 2.93 10^6/uL (4.30-6.10); WHITE BLOOD COUNT 2.2 10^3/uL (4.0-10.0)
[2021-09-26 16:50] LABS: PLATELET COUNT, AUTOMATED 54 10^3/uL (150-450)
[2021-09-26 21:46] LABS: ERYTHROCYTE SEDIMENTATION RATE 23 mm/hr (0-20)
== END ==
PROVIDERS: ATTEND Physician Assistant
DX: M79.609 Pain in unspecified limb (principal)

== ENCOUNTER → 2021-09-27 | Outpatient (CLI) | payer MEDICARE, MEDICAID ==
[2021-09-27 12:20] LABS: HEMATOCRIT 31.5 % (42.0-52.0); HEMOGLOBIN 10.2 g/dl (13.5-17.5); MEAN CORPUSCULAR HEMOGLOBIN 32.4 pg (27.0-33.0); MEAN CORPUSCULAR HGB CONC 32.4 g/dl (32.0-36.5); RED BLOOD COUNT 3.15 10^6/uL (4.30-6.10); WHITE BLOOD COUNT 2.3 10^3/uL (4.0-10.0)
[2021-09-27 12:21] LABS: PLATELET COUNT, AUTOMATED 68 10^3/uL (150-450)
[2021-09-27 13:09] LABS: ERYTHROCYTE SEDIMENTATION RATE 27 mm/hr (0-20)
== END ==
PROVIDERS: ATTEND Internal Medicine
DX: M79.605 Pain in left leg (principal)

== ENCOUNTER → 2021-09-29 | Outpatient (REF) | payer MEDICARE, MEDICAID ==
[2021-09-29 12:01] LABS: HEMOGLOBIN 10.4 g/dl (13.5-17.5); MEAN CORPUSCULAR HEMOGLOBIN 31.9 pg (27.0-33.0); MEAN CORPUSCULAR HGB CONC 31.5 g/dl (32.0-36.5); MEAN CORPUSCULAR VOLUME 101.2 fl (80.0-96.0); RED BLOOD COUNT 3.26 10^6/uL (4.30-6.10); WHITE BLOOD COUNT 2.9 10^3/uL (4.0-10.0)
[2021-09-29 12:15] LABS: PLATELET COUNT, AUTOMATED 81 10^3/uL (150-450)
[2021-09-29 12:47] LABS: ERYTHROCYTE SEDIMENTATION RATE 21 mm/hr (0-20)
== END ==
PROVIDERS: ATTEND Internal Medicine
DX: M79.609 Pain in unspecified limb (principal)

== ENCOUNTER → 2021-10-01 | Outpatient (REF) | payer MEDICARE, MEDICAID | PROVIDERS: ATTEND Physician Assistant | DX: Z53.9 Procedure and treatment not carried out, unspecified reason (principal) ==

== ENCOUNTER → 2021-10-20 | Outpatient (REF) ==
[2021-10-20 10:44] LABS: HEMATOCRIT 34.2 % (42.0-52.0); MEAN CORPUSCULAR HEMOGLOBIN 31.9 pg (27.0-33.0); MEAN CORPUSCULAR HGB CONC 32.2 g/dl (32.0-36.5); MEAN CORPUSCULAR VOLUME 99.1 fl (80.0-96.0); RED BLOOD COUNT 3.45 10^6/uL (4.30-6.10); WHITE BLOOD COUNT 3.6 10^3/uL (4.0-10.0)
[2021-10-20 10:46] LABS: PLATELET COUNT, AUTOMATED 73 10^3/uL (150-450)
[2021-10-20 11:12] LABS: CALCIUM LEVEL 8.4 MG/DL (8.8-10.2); CREATININE FOR GFR 3.02 MG/DL (0.70-1.30); GLOMERULAR FILTRATION RATE 21.4 (>42); POTASSIUM SERUM 3.7 MEQ/L (3.5-5.1)
== END ==
PROVIDERS: ATTEND Internal Medicine
DX: N18.6 End stage renal disease (principal)

== ENCOUNTER → 2021-11-24 | Outpatient (REF) | payer MEDICAID, MEDICARE ==
[2021-11-24 11:17] LABS: HEMATOCRIT 32.5 % (42.0-52.0); HEMOGLOBIN 10.5 g/dl (13.5-17.5); MEAN CORPUSCULAR HEMOGLOBIN 30.9 pg (27.0-33.0); MEAN CORPUSCULAR HGB CONC 32.3 g/dl (32.0-36.5); MEAN CORPUSCULAR VOLUME 95.6 fl (80.0-96.0); WHITE BLOOD COUNT 3.8 10^3/uL (4.0-10.0)
[2021-11-24 11:18] LABS: PLATELET COUNT, AUTOMATED 96 10^3/uL (150-450)
[2021-11-24 12:20] LABS: CALCIUM LEVEL 8.8 MG/DL (8.8-10.2); CREATININE FOR GFR 3.1 MG/DL (0.70-1.30); GLOMERULAR FILTRATION RATE 20.8 (>42); POTASSIUM SERUM 3.6 MEQ/L (3.5-5.1)
== END ==
PROVIDERS: ATTEND Internal Medicine
DX: N18.6 End stage renal disease (principal)

== ENCOUNTER → 2021-12-09 | Outpatient (CLI) | payer MEDICARE, MEDICAID ==
[~2021-12-09] MED LIST changes: -LABE100T4 PO; +LABE100T6 PO
== END ==
LOC: M PLALAB 12:17
PROVIDERS: ATTEND Internal Medicine
DX: M25.562 Pain in left knee (principal)

== ENCOUNTER → 2021-12-17 | Outpatient (REF) | payer MEDICARE, MEDICAID ==
[2021-12-17 10:40] LABS: HEMATOCRIT 30.7 % (42.0-52.0); HEMOGLOBIN 10.1 g/dl (13.5-17.5); MEAN CORPUSCULAR HGB CONC 32.9 g/dl (32.0-36.5); MEAN CORPUSCULAR VOLUME 97.2 fl (80.0-96.0); PLATELET COUNT, AUTOMATED 108 10^3/uL (150-450); RED BLOOD COUNT 3.16 10^6/uL (4.30-6.10); WHITE BLOOD COUNT 3.2 10^3/uL (4.0-10.0)
[2021-12-17 11:31] LABS: CALCIUM LEVEL 8.6 MG/DL (8.8-10.2); CREATININE FOR GFR 2.55 MG/DL (0.70-1.30); GLOMERULAR FILTRATION RATE 26.1 (>42); POTASSIUM SERUM 3.6 MEQ/L (3.5-5.1)
== END ==
PROVIDERS: ATTEND Internal Medicine
DX: N18.9 Chronic kidney disease, unspecified (principal)

== ENCOUNTER → 2022-01-14 | Outpatient (REF) | payer MEDICARE, MEDICAID ==
[2022-01-14 12:01] LABS: HEMATOCRIT 30.5 % (42.0-52.0); HEMOGLOBIN 9.9 g/dl (13.5-17.5); MEAN CORPUSCULAR HEMOGLOBIN 31.8 pg (27.0-33.0); MEAN CORPUSCULAR HGB CONC 32.5 g/dl (32.0-36.5); MEAN CORPUSCULAR VOLUME 98.1 fl (80.0-96.0); RED BLOOD COUNT 3.11 10^6/uL (4.30-6.10); WHITE BLOOD COUNT 3.1 10^3/uL (4.0-10.0)
[2022-01-14 12:09] LABS: PLATELET COUNT, AUTOMATED 92 10^3/uL (150-450)
[2022-01-14 12:55] LABS: CALCIUM LEVEL 8.7 MG/DL (8.8-10.2); CREATININE FOR GFR 3.48 MG/DL (0.70-1.30); GLOMERULAR FILTRATION RATE 18.2 (>42); POTASSIUM SERUM 3.9 MEQ/L (3.5-5.1)
== END ==
PROVIDERS: ATTEND Internal Medicine
DX: N18.9 Chronic kidney disease, unspecified (principal)

== ENCOUNTER → 2022-02-18 | Outpatient (REF) | payer MEDICARE, MEDICAID ==
[2022-02-18 11:59] LABS: HEMATOCRIT 30.8 % (42.0-52.0); HEMOGLOBIN 9.6 g/dl (13.5-17.5); MEAN CORPUSCULAR HEMOGLOBIN 31.7 pg (27.0-33.0); MEAN CORPUSCULAR HGB CONC 31.2 g/dl (32.0-36.5); MEAN CORPUSCULAR VOLUME 101.7 fl (80.0-96.0); RED BLOOD COUNT 3.03 10^6/uL (4.30-6.10); WHITE BLOOD COUNT 2.6 10^3/uL (4.0-10.0)
[2022-02-18 12:24] LABS: PLATELET COUNT, AUTOMATED 76 10^3/uL (150-450)
[2022-02-18 12:47] LABS: CREATININE FOR GFR 2.77 MG/DL (0.70-1.30); GLOMERULAR FILTRATION RATE 23.6 (>35); POTASSIUM SERUM 3.8 MEQ/L (3.5-5.1)
== END ==
PROVIDERS: ATTEND Internal Medicine
DX: N18.9 Chronic kidney disease, unspecified (principal)

== ENCOUNTER → 2022-03-25 | Outpatient (REF) | payer MEDICARE, MEDICAID ==
[2022-03-25 10:29] LABS: HEMATOCRIT 37.1 % (42.0-52.0); HEMOGLOBIN 11.6 g/dl (13.5-17.5); MEAN CORPUSCULAR HEMOGLOBIN 31.6 pg (27.0-33.0); MEAN CORPUSCULAR HGB CONC 31.3 g/dl (32.0-36.5); MEAN CORPUSCULAR VOLUME 101.1 fl (80.0-96.0); RED BLOOD COUNT 3.67 10^6/uL (4.30-6.10); WHITE BLOOD COUNT 3.2 10^3/uL (4.0-10.0)
[2022-03-25 10:32] LABS: PLATELET COUNT, AUTOMATED 81 10^3/uL (150-450)
[2022-03-25 11:17] LABS: CALCIUM LEVEL 8.5 MG/DL (8.3-10.6); CREATININE FOR GFR 2.69 MG/DL (0.70-1.30); GLOMERULAR FILTRATION RATE 24.4 (>35); POTASSIUM SERUM 4.4 MMOL/L (3.5-5.1)
== END ==
PROVIDERS: ATTEND Internal Medicine
DX: N18.9 Chronic kidney disease, unspecified (principal)

== ENCOUNTER → 2022-04-13 | Outpatient (REF) | payer MEDICARE, MEDICAID ==
[2022-04-13 11:27] LABS: HEMATOCRIT 33.9 % (42.0-52.0); HEMOGLOBIN 10.6 g/dl (13.5-17.5); MEAN CORPUSCULAR HGB CONC 31.3 g/dl (32.0-36.5); MEAN CORPUSCULAR VOLUME 102.4 fl (80.0-96.0); RED BLOOD COUNT 3.31 10^6/uL (4.30-6.10); WHITE BLOOD COUNT 2.6 10^3/uL (4.0-10.0)
[2022-04-13 11:29] LABS: PLATELET COUNT, AUTOMATED 60 10^3/uL (150-450)
[2022-04-13 12:10] LABS: CALCIUM LEVEL 8.4 MG/DL (8.3-10.6); CREATININE FOR GFR 2.93 MG/DL (0.70-1.30); GLOMERULAR FILTRATION RATE 22.1 (>35)
== END ==
PROVIDERS: ATTEND Internal Medicine
DX: N18.9 Chronic kidney disease, unspecified (principal)

== ENCOUNTER → 2022-05-18 | Outpatient (REF) | payer MEDICARE, MEDICAID ==
[2022-05-18 11:39] LABS: HEMATOCRIT 35.1 % (42.0-52.0); HEMOGLOBIN 11.1 g/dl (13.5-17.5); MEAN CORPUSCULAR HGB CONC 31.6 g/dl (32.0-36.5); MEAN CORPUSCULAR VOLUME 101.2 fl (80.0-96.0); RED BLOOD COUNT 3.47 10^6/uL (4.30-6.10); WHITE BLOOD COUNT 2.9 10^3/uL (4.0-10.0)
[2022-05-18 11:43] LABS: PLATELET COUNT, AUTOMATED 66 10^3/uL (150-450)
[2022-05-18 11:58] LABS: CALCIUM LEVEL 8.4 MG/DL (8.3-10.6); CREATININE FOR GFR 2.95 MG/DL (0.70-1.30); POTASSIUM SERUM 4.1 MMOL/L (3.5-5.1)
== END ==
PROVIDERS: ATTEND Physician Assistant
DX: E78.5 Hyperlipidemia, unspecified (principal)

== ENCOUNTER → 2022-06-15 | Outpatient (REF) | payer MEDICARE, MEDICAID ==
[2022-06-15 10:28] LABS: HEMATOCRIT 30.7 % (42.0-52.0); HEMOGLOBIN 9.9 g/dl (13.5-17.5); MEAN CORPUSCULAR HEMOGLOBIN 32.7 pg (27.0-33.0); MEAN CORPUSCULAR HGB CONC 32.2 g/dl (32.0-36.5); MEAN CORPUSCULAR VOLUME 101.3 fl (80.0-96.0); RED BLOOD COUNT 3.03 10^6/uL (4.30-6.10); WHITE BLOOD COUNT 4.4 10^3/uL (4.0-10.0)
[2022-06-15 10:34] LABS: PLATELET COUNT, AUTOMATED 68 10^3/uL (150-450)
[2022-06-15 10:53] LABS: CALCIUM LEVEL 8.1 MG/DL (8.3-10.6); CREATININE FOR GFR 3.34 MG/DL (0.70-1.30); POTASSIUM SERUM 3.6 MMOL/L (3.5-5.1)
== END ==
PROVIDERS: ATTEND Physician Assistant
DX: E78.5 Hyperlipidemia, unspecified (principal)

== ENCOUNTER → 2022-06-17 | Outpatient (REF) | payer MEDICARE, MEDICAID | PROVIDERS: ATTEND Physician Assistant | DX: E78.5 Hyperlipidemia, unspecified (principal); Z53.8 Procedure and treatment not carried out for other reasons ==

== ENCOUNTER → 2022-08-19 | Outpatient (REF) | payer MEDICARE, MEDICAID ==
[~2022-08-19] MED LIST changes: -COSO1SOL3 OU; +DORZ10DR10 OU
== END ==
PROVIDERS: ATTEND Internal Medicine
DX: E78.5 Hyperlipidemia, unspecified (principal); Z53.8 Procedure and treatment not carried out for other reasons

== ENCOUNTER → 2022-09-14 | Outpatient (REF) | payer MEDICARE, MEDICAID ==
[2022-09-14 11:22] LABS: HEMOGLOBIN 11.5 g/dl (13.5-17.5); MEAN CORPUSCULAR HGB CONC 31.9 g/dl (32.0-36.5); MEAN CORPUSCULAR VOLUME 103.4 fl (80.0-96.0); RED BLOOD COUNT 3.48 10^6/uL (4.30-6.10); WHITE BLOOD COUNT 2.6 10^3/uL (4.0-10.0)
[2022-09-14 11:33] LABS: PLATELET COUNT, AUTOMATED 53 10^3/uL (150-450)
[2022-09-14 11:45] LABS: CALCIUM LEVEL 8.7 MG/DL (8.3-10.6); CREATININE FOR GFR 3.45 MG/DL (0.70-1.30); GLOMERULAR FILTRATION RATE 18.3 (>35); POTASSIUM SERUM 4.2 MMOL/L (3.5-5.1)
== END ==
PROVIDERS: ATTEND Physician Assistant
DX: E78.5 Hyperlipidemia, unspecified (principal)

== ENCOUNTER 2022-10-02 03:50 | Emergency (ER) | payer MEDICARE, MEDICAID ==
[2022-10-02 05:48] LABS: BASO % 0.8 % (0.0-1.0); EOS # 0.1 10^3/uL (0.0-0.5); EOS % 4.2 % (0.0-3.0); HEMOGLOBIN 11.5 g/dl (13.5-17.5); LYMPH # 0.7 10^3/uL (1.5-5.0); MEAN CORPUSCULAR HEMOGLOBIN 33.3 pg (27.0-33.0); MEAN CORPUSCULAR HGB CONC 32.9 g/dl (32.0-36.5); MEAN CORPUSCULAR VOLUME 101.4 fl (80.0-96.0); MONO # 0.2 10^3/uL (0.0-0.8); MONO % 10.2 % (2.0-8.0); NEUTROPHILS # 1.3 10^3/uL (1.5-8.5); NEUTROPHILS % 56.4 % (36.0-66.0); RED BLOOD COUNT 3.45 10^6/uL (4.30-6.10); WHITE BLOOD COUNT 2.4 10^3/uL (4.0-10.0)
[2022-10-02 06:11] LABS: CALCIUM LEVEL 8.7 MG/DL (8.3-10.6); CREATININE FOR GFR 2.41 MG/DL (0.70-1.30); GLOMERULAR FILTRATION RATE 27.7 (>35)
[2022-10-02 06:21] LABS: C REACTIVE PROTEIN QUANTITATIV 2.2 MG/DL (<1.0)
[2022-10-02 06:39] LABS: PLATELET COUNT, AUTOMATED 69 10^3/uL (150-450)
[2022-10-02] MEDS ORDERED: ARTIDRO4 OU (06:56)
[2022-10-02] MEDS ORDERED: DICL20GE TOP (06:56)
[2022-10-02] MEDS ORDERED: MILKSUS3 PO (06:56)
[2022-10-02] MEDS ORDERED: [UNRECOGNIZED DRUG - CODE] TOP (06:56)
[2022-10-02] MEDS ORDERED: FLEEENE12 PR (06:56)
[2022-10-02] MEDS ORDERED: CALC667T2 PO (06:56)
[2022-10-02] MEDS ORDERED: MIDO5TA PO (06:56)
[2022-10-02] MEDS ORDERED: SENN8.6T28 PO (06:56)
[2022-10-02] MEDS ORDERED: PREDOPD OD (06:56)
[2022-10-02] MEDS ORDERED: BISA1TAB PO (06:56)
[2022-10-02] MEDS ORDERED: BISA10SU20 PR (06:56)
[2022-10-02] MEDS ORDERED: TRAM37.53 PO (06:56)
[2022-10-02] MEDS ORDERED: ACETAMINOPHEN 325 MG TAB PO ONE (08:15)
[2022-10-02 11:18] VITALS: BP 162/70
== END 2022-10-02 12:39 | disposition home or self-care (01) ==
LOC: EDBD 03:50 → M ED 03:50
DX: M79.606 Pain in leg, unspecified (principal); I10 Essential (primary) hypertension; E11.9 Type 2 diabetes mellitus without complications; Z79.4 Long term (current) use of insulin; Z86.79 Personal history of other diseases of the circulatory system; Z88.0 Allergy status to penicillin; Z88.1 Allergy status to other antibiotic agents; Z79.899 Other long term (current) drug therapy; Z79.52 Long term (current) use of systemic steroids; Z79.811 Long term (current) use of aromatase inhibitors

== ENCOUNTER → 2022-12-16 | Outpatient (REF) | payer MEDICARE, MEDICAID ==
[~2022-12-16] MED LIST changes: +ARTIDRO4 OU; +BISA10SU20 PR; +BISA1TAB PO; +CALC667T2 PO; +DICL20GE TOP; +FLEEENE12 PR; -LIDO1CRE42 TOP; +LIDO30CR18 TOP; +MILKSUS3 PO; +PREDOPD OD; +SENN-111 PO; -SENN18TA PO; +SENN8.6T28 PO; +TRAM37.53 PO; +[UNRECOGNIZED DRUG - CODE] TOP
[2022-12-16 10:28] LABS: HEMOGLOBIN 10.7 g/dl (13.5-17.5); MEAN CORPUSCULAR HEMOGLOBIN 31.5 pg (27.0-33.0); MEAN CORPUSCULAR HGB CONC 31.5 g/dl (32.0-36.5); WHITE BLOOD COUNT 2.5 10^3/uL (4.0-10.0)
[2022-12-16 10:36] LABS: PLATELET COUNT, AUTOMATED 65 10^3/uL (150-450)
[2022-12-16 10:56] LABS: CALCIUM LEVEL 8.8 MG/DL (8.3-10.6); CREATININE FOR GFR 2.79 MG/DL (0.70-1.30); GLOMERULAR FILTRATION RATE 23.4 (>35); POTASSIUM SERUM 4.4 MMOL/L (3.5-5.1)
== END ==
PROVIDERS: ATTEND Physician Assistant
DX: N18.9 Chronic kidney disease, unspecified (principal)

== ENCOUNTER → 2022-12-17 | Outpatient (REF) | payer MEDICARE, MEDICAID ==
[2022-12-17 16:00] LABS: BASO % 1.2 % (0.0-1.0); EOS # 0.2 10^3/uL (0.0-0.5); EOS % 5.9 % (0.0-3.0); HEMATOCRIT 34.3 % (42.0-52.0); HEMOGLOBIN 11.2 g/dl (13.5-17.5); LYMPH # 0.9 10^3/uL (1.5-5.0); MEAN CORPUSCULAR HEMOGLOBIN 32.3 pg (27.0-33.0); MEAN CORPUSCULAR HGB CONC 32.7 g/dl (32.0-36.5); MEAN CORPUSCULAR VOLUME 98.8 fl (80.0-96.0); MONO # 0.3 10^3/uL (0.0-0.8); MONO % 10.2 % (2.0-8.0); NEUTROPHILS # 1.2 10^3/uL (1.5-8.5); NEUTROPHILS % 48.3 % (36.0-66.0); RED BLOOD COUNT 3.47 10^6/uL (4.30-6.10); WHITE BLOOD COUNT 2.6 10^3/uL (4.0-10.0)
[2022-12-17 16:02] LABS: PLATELET COUNT, AUTOMATED 73 10^3/uL (150-450)
== END ==
PROVIDERS: ATTEND Physician Assistant
DX: D72.819 Decreased white blood cell count, unspecified (principal)

== ENCOUNTER → 2023-01-18 | Outpatient (CLI) | payer MEDICARE, MEDICAID ==
[~2023-01-18] MED LIST changes: +DICL20GE TP; +DULC10SU2 PR; +LIDO30CR18; +[UNRECOGNIZED DRUG - CODE] TP
== END ==
LOC: M RAD 07:23
PROVIDERS: ATTEND Internal Medicine Medical Oncology
DX: D61.818 Other pancytopenia (principal)

== ENCOUNTER → 2023-03-08 | Outpatient (REF) | payer MEDICARE, MEDICAID ==
[~2023-03-08] MED LIST changes: -CEFD300C41 PO; +CEFD300C42 PO
[2023-03-08 12:00] LABS: INR 1.14; PROTHROMBIN TIME 14.3 SECONDS (12.5-14.5)
[2023-03-08 12:15] LABS: HEMATOCRIT 31.9 % (42.0-52.0); HEMOGLOBIN 10.3 g/dl (13.5-17.5); MEAN CORPUSCULAR HEMOGLOBIN 32.4 pg (27.0-33.0); MEAN CORPUSCULAR HGB CONC 32.3 g/dl (32.0-36.5); MEAN CORPUSCULAR VOLUME 100.3 fl (80.0-96.0); RED BLOOD COUNT 3.18 10^6/uL (4.30-6.10); WHITE BLOOD COUNT 2.4 10^3/uL (4.0-10.0)
[2023-03-08 12:16] LABS: PLATELET COUNT, AUTOMATED 60 10^3/uL (150-450)
== END ==
PROVIDERS: ATTEND Internal Medicine
DX: Z01.818 Encounter for other preprocedural examination (principal); Z79.899 Other long term (current) drug therapy

== ENCOUNTER → 2023-03-09 | Outpatient (CLI) | payer MEDICARE, MEDICAID ==
[~2023-03-09] MED LIST changes: +LIDOCAINE 1% MDV 20ML VIAL As Ordered ONE
[2023-03-09 12:38] VITALS: BP 190/84; TEMP 97.9; O2SAT 98
[2023-03-09 13:59] LABS: BASO % 0.7 % (0.0-1.0); EOS # 0.1 10^3/uL (0.0-0.5); EOS % 4.3 % (0.0-3.0); HEMATOCRIT 32.2 % (42.0-52.0); HEMOGLOBIN 10.6 g/dl (13.5-17.5); LYMPH # 0.9 10^3/uL (1.5-5.0); LYMPH % 32.9 % (24.0-44.0); MEAN CORPUSCULAR HEMOGLOBIN 32.5 pg (27.0-33.0); MEAN CORPUSCULAR HGB CONC 32.9 g/dl (32.0-36.5); MEAN CORPUSCULAR VOLUME 98.8 fl (80.0-96.0); MONO # 0.2 10^3/uL (0.0-0.8); MONO % 7.9 % (2.0-8.0); NEUTROPHILS # 1.5 10^3/uL (1.5-8.5); NEUTROPHILS % 53.8 % (36.0-66.0); PLATELET COUNT, AUTOMATED 66 10^3/uL (150-450); RED BLOOD COUNT 3.26 10^6/uL (4.30-6.10); WHITE BLOOD COUNT 2.8 10^3/uL (4.0-10.0)
== END ==
LOC: M IRPRO 12:25
PROVIDERS: ATTEND Physician Assistant
DX: D72.819 Decreased white blood cell count, unspecified (principal)

== ENCOUNTER → 2023-03-22 | Outpatient (REF) | payer MEDICARE, MEDICAID ==
[~2023-03-22] MED LIST changes: -LIDOCAINE 1% MDV 20ML VIAL As Ordered ONE
[2023-03-22 11:38] LABS: HEMATOCRIT 33.4 % (42.0-52.0); HEMOGLOBIN 10.7 g/dl (13.5-17.5); MEAN CORPUSCULAR HEMOGLOBIN 32.1 pg (27.0-33.0); MEAN CORPUSCULAR VOLUME 100.3 fl (80.0-96.0); RED BLOOD COUNT 3.33 10^6/uL (4.30-6.10); WHITE BLOOD COUNT 3.3 10^3/uL (4.0-10.0)
[2023-03-22 11:40] LABS: PLATELET COUNT, AUTOMATED 69 10^3/uL (150-450)
[2023-03-22 12:05] LABS: CALCIUM LEVEL 8.8 MG/DL (8.3-10.6); CREATININE FOR GFR 2.85 MG/DL (0.70-1.30); GLOMERULAR FILTRATION RATE 22.8 (>35); POTASSIUM SERUM 3.5 MMOL/L (3.5-5.1)
== END ==
PROVIDERS: ATTEND Internal Medicine
DX: N18.9 Chronic kidney disease, unspecified (principal)

== ENCOUNTER → 2023-04-13 | Outpatient (REF) | payer MEDICARE, MEDICAID ==
[~2023-04-13] MED LIST changes: +CEFD1CAP9 PO; -CEFD300C42 PO
== END ==
PROVIDERS: ATTEND Physician Assistant
DX: B34.9 Viral infection, unspecified (principal); Z53.8 Procedure and treatment not carried out for other reasons

== ENCOUNTER → 2023-04-14 | Outpatient (REF) | payer MEDICARE, MEDICAID | PROVIDERS: ATTEND Physician Assistant | DX: R11.2 Nausea with vomiting, unspecified (principal); R19.7 Diarrhea, unspecified ==

== ENCOUNTER → 2023-06-25 | Outpatient (REF) | payer MEDICARE, MEDICAID ==
[~2023-06-25] MED LIST changes: -BISA10SU20 PR; +BISA10SU59 PR
[2023-06-25 10:38] LABS: HEMOGLOBIN 9.9 g/dl (13.5-17.5); MEAN CORPUSCULAR HEMOGLOBIN 31.9 pg (27.0-33.0); MEAN CORPUSCULAR HGB CONC 30.9 g/dl (32.0-36.5); MEAN CORPUSCULAR VOLUME 103.2 fl (80.0-96.0); WHITE BLOOD COUNT 2.5 10^3/uL (4.0-10.0)
[2023-06-25 10:44] LABS: PLATELET COUNT, AUTOMATED 57 10^3/uL (150-450)
[2023-06-25 10:52] LABS: CALCIUM LEVEL 8.5 MG/DL (8.3-10.6); CREATININE FOR GFR 3.59 MG/DL (0.70-1.30); GLOMERULAR FILTRATION RATE 17.5 (>35); POTASSIUM SERUM 4.5 MMOL/L (3.5-5.1)
== END ==
PROVIDERS: ATTEND Physician Assistant
DX: I50.9 Heart failure, unspecified (principal)

== ENCOUNTER → 2023-08-18 | Outpatient (REF) | payer MEDICARE, MEDICAID ==
[~2023-08-18] MED LIST changes: -GNPLIQ18 PO; +GUAI118S11 PO; +SEVE800T3 PO; -THIA100T14 PO; +THIA100T30 PO
== END ==
PROVIDERS: ATTEND Physician Assistant
DX: N18.9 Chronic kidney disease, unspecified (principal); Z53.8 Procedure and treatment not carried out for other reasons

== ENCOUNTER → 2023-09-22 | Outpatient (REF) | payer MEDICARE, MEDICAID ==
[2023-09-22 11:26] LABS: HEMATOCRIT 32.2 % (42.0-52.0); HEMOGLOBIN 10.5 g/dl (13.5-17.5); MEAN CORPUSCULAR HEMOGLOBIN 32.3 pg (27.0-33.0); MEAN CORPUSCULAR HGB CONC 32.6 g/dl (32.0-36.5); MEAN CORPUSCULAR VOLUME 99.1 fl (80.0-96.0); RED BLOOD COUNT 3.25 10^6/uL (4.30-6.10); WHITE BLOOD COUNT 2.9 10^3/uL (4.0-10.0)
[2023-09-22 11:40] LABS: PLATELET COUNT, AUTOMATED 65 10^3/uL (150-450)
[2023-09-22 12:02] LABS: CALCIUM LEVEL 8.9 MG/DL (8.3-10.6); CREATININE FOR GFR 5.01 MG/DL (0.70-1.30); GLOMERULAR FILTRATION RATE 11.9 (>35); POTASSIUM SERUM 5.4 MMOL/L (3.5-5.1)
== END ==
PROVIDERS: ATTEND Physician Assistant
DX: N18.9 Chronic kidney disease, unspecified (principal)

== ENCOUNTER → 2023-10-29 | Outpatient (REF) | payer MEDICARE, MEDICAID ==
[2023-10-29 17:48] LABS: BASO % 0.6 % (0.0-1.0); EOS % 1.1 % (0.0-3.0); HEMATOCRIT 31.5 % (42.0-52.0); HEMOGLOBIN 10.2 g/dl (13.5-17.5); LYMPH # 0.9 10^3/uL (1.5-5.0); LYMPH % 25.5 % (24.0-44.0); MEAN CORPUSCULAR HEMOGLOBIN 32.3 pg (27.0-33.0); MEAN CORPUSCULAR HGB CONC 32.4 g/dl (32.0-36.5); MEAN CORPUSCULAR VOLUME 99.7 fl (80.0-96.0); MONO # 0.3 10^3/uL (0.0-0.8); MONO % 8.8 % (2.0-8.0); NEUTROPHILS # 2.3 10^3/uL (1.5-8.5); NEUTROPHILS % 63.7 % (36.0-66.0); RED BLOOD COUNT 3.16 10^6/uL (4.30-6.10); WHITE BLOOD COUNT 3.5 10^3/uL (4.0-10.0)
[2023-10-29 17:52] LABS: PLATELET COUNT, AUTOMATED 68 10^3/uL (150-450)
[2023-10-29 18:15] LABS: ALBUMIN 3.5 G/DL (3.2-5.2); BILIRUBIN,DIRECT 0.2 MG/DL (<0.4); BILIRUBIN,TOTAL 0.5 MG/DL (0.3-1.2); CALCIUM LEVEL 8.9 MG/DL (8.3-10.6); CREATININE FOR GFR 4.13 MG/DL (0.70-1.30); GLOMERULAR FILTRATION RATE 14.9 (>35); POTASSIUM SERUM 4.4 MMOL/L (3.5-5.1); TOTAL PROTEIN 6.2 G/DL (5.7-8.2)
== END ==
PROVIDERS: ATTEND Physician Assistant
DX: R10.9 Unspecified abdominal pain (principal)

== ENCOUNTER → 2023-10-30 | Outpatient (REF) | payer MEDICARE, MEDICAID | PROVIDERS: ATTEND Physician Assistant | DX: Z53.8 Procedure and treatment not carried out for other reasons (principal) ==

== ENCOUNTER → 2023-11-01 | Outpatient (REF) | payer MEDICARE, MEDICAID | PROVIDERS: ATTEND Physician Assistant | DX: R10.9 Unspecified abdominal pain (principal) ==

== ENCOUNTER → 2023-11-02 | Outpatient (CLI) | payer MEDICARE, MEDICAID | LOC: M PLAIMG 14:34 | PROVIDERS: ATTEND Internal Medicine | DX: M54.50 Low back pain, unspecified (principal); M54.6 Pain in thoracic spine ==

== ENCOUNTER → 2023-12-08 | Outpatient (REF) | payer MEDICARE, MEDICAID ==
[~2023-12-08] MED LIST changes: +TRAM-443 PO; -TRAM37.53 PO
[2023-12-08 18:35] LABS: EOS # 0.1 10^3/uL (0.0-0.5); HEMATOCRIT 31.7 % (42.0-52.0); HEMOGLOBIN 10.1 g/dl (13.5-17.5); LYMPH # 0.8 10^3/uL (1.5-5.0); LYMPH % 31.6 % (24.0-44.0); MEAN CORPUSCULAR HGB CONC 31.9 g/dl (32.0-36.5); MEAN CORPUSCULAR VOLUME 103.6 fl (80.0-96.0); MONO # 0.2 10^3/uL (0.0-0.8); MONO % 9.4 % (2.0-8.0); NEUTROPHILS # 1.5 10^3/uL (1.5-8.5); NEUTROPHILS % 56.6 % (36.0-66.0); RED BLOOD COUNT 3.06 10^6/uL (4.30-6.10); WHITE BLOOD COUNT 2.6 10^3/uL (4.0-10.0)
[2023-12-08 18:43] LABS: PLATELET COUNT, AUTOMATED 62 10^3/uL (150-450)
[2023-12-08 19:02] LABS: ALBUMIN 3.1 G/DL (3.2-5.2); BILIRUBIN,DIRECT 0.2 MG/DL (<0.4); BILIRUBIN,TOTAL 0.5 MG/DL (0.3-1.2); CALCIUM LEVEL 8.6 MG/DL (8.3-10.6); CREATININE FOR GFR 2.23 MG/DL (0.70-1.30); GLOMERULAR FILTRATION RATE 30.3 (>35); POTASSIUM SERUM 3.2 MMOL/L (3.5-5.1); TOTAL PROTEIN 5.6 G/DL (5.7-8.2)
== END ==
PROVIDERS: ATTEND Physician Assistant
DX: R10.9 Unspecified abdominal pain (principal)

== ENCOUNTER → 2023-12-09 | Outpatient (REF) | payer MEDICARE, MEDICAID | PROVIDERS: ATTEND Internal Medicine | DX: K59.00 Constipation, unspecified (principal) ==

== ENCOUNTER → 2023-12-17 | Outpatient (REF) | payer MEDICARE, MEDICAID ==
[~2023-12-17] MED LIST changes: -TRAM-443 PO; +TRAM1TAB42 PO
== END ==
PROVIDERS: ATTEND Physician Assistant
DX: N18.9 Chronic kidney disease, unspecified (principal); Z53.8 Procedure and treatment not carried out for other reasons

== ENCOUNTER → 2023-12-17 | Outpatient (REF) | payer MEDICARE, MEDICAID | PROVIDERS: ATTEND Physician Assistant | DX: N18.9 Chronic kidney disease, unspecified (principal); Z53.8 Procedure and treatment not carried out for other reasons ==